=== PATIENT | female | born 1960 | race Caucasian/White ===

== ENCOUNTER 2022-05-11 13:39 | Outpatient (RCR) | payer BC, SELFPAY ==
--- NOTE | 2022-05-08 12:58 | ONC.NURNOTE ---
Patient is on the schedule for prolia, but last note has no mention of this. LM for patient to see who was the ordering provider for this. Will take patient off schedule for this at this time, as orders will need to be written and PA obtained.
== END 2022-11-07 23:59 | disposition home or self-care (01) ==
LOC: CCIC 13:39
PROVIDERS: PCP Family Medicine; Visit Provider Nurse Practitioner Family
DX: C50.912 Malignant neoplasm of unspecified site of left female breast (principal); Z17.0 Estrogen receptor positive status [ER+]; Z79.811 Long term (current) use of aromatase inhibitors
CPT/HCPCS: 99212; 99214

== ENCOUNTER 2022-09-12 08:57 | Outpatient (CLI) | payer BC, SELFPAY ==
--- NOTE | 2022-09-12 09:15 | MR_ITS ---
[address] [address] Phone:?[phone] Fax:?[phone] Referring Physician Information: Lalo Garibay M.D. [id number] [facility] [address] Phone:?[phone] Fax:?[phone] Patient:Dakota Rubio D.O.B:?1960 Sex:?Female Phone:? [facility] MRN:?[id number] Exam Date:?09/12/2022 ? EXAM: MRI OF THE LEFT KNEE CLINICAL INFORMATION: The patient is a 61-year-old with left knee pain. Evaluate for lateral meniscal tear. PRIOR SURGERY: None reported. COMPARISON STUDIES: There are no prior studies available for comparison. TECHNICAL INFORMATION: Imaging was performed on a high-field, 1.5 [place]uy MR scanner. Axial proton-density and fat-suppressed T2 imaging of the left knee was performed in addition to sagittal proton-density and fat-suppressed proton- density imaging. Coronal proton-density and coronal STIR imaging was also performed. FINDINGS: Articular/Extraarticular collections: Effusion: Mild. Popliteal cyst: Small to moderate, seen on sagittal series 6 images 9 and 10. Loose bodies: No well-defined intra-articular loose bodies are present. Subcutaneous and extraarticular soft tissues: Within normal limits. Osseous structures: No evidence for marrow edema or cortical injury. No evidence for fracture or stress injury. No evidence for destructive bony lesion. Ligamentous structures: ACL: Intact and normal in appearance. PCL: Intact and normal in appearance. MCL: Intact and normal in appearance. LCL: Intact and normal in appearance. Posterolateral corner: Intact and normal in appearance. Posteromedial corner: No posteromedial corner soft tissue injury. Semimembranosus and pes anserine tendons demonstrate no tendinopathy or associated bursitis. Extensor mechanism/Patellar retinacular structures: Patellar tendon: Intact, without tendinopathy. Quadriceps tendon: Chronic mild distal quadriceps tendinosis can be seen. There is no evidence for well-defined transverse tearing. Retinacula: The medial and lateral retinacula are intact. The medial patellofemoral ligament is intact. Medial compartment: Medial meniscus: Intrasubstance degeneration of the posterior horn of the medial meniscus can be seen. No definite evidence for well-defined tearing is identified. The middle and anterior portions of the medial meniscus appear intact. No parameniscal cyst formation is present. Medial femoral condyle: No chondromalacia, chondral defect, or osteochondral abnormality. Medial tibial plateau: No chondromalacia, chondral defect, or osteochondral abnormality. Lateral compartment: Lateral meniscus: There is a focal area of linear tearing involving the far posterior aspect of the lateral meniscus near the meniscotibial attachment on sagittal series 6 image 20, measuring approximately 5 mm in greatest dimension. No other well-defined tearing of the lateral meniscus can be seen. There is no evidence for parameniscal cyst formation. Lateral femoral condyle: No chondromalacia, chondral defect, or osteochondral abnormality. Lateral tibial plateau: Grade II chondromalacia can be seen along the posterior weightbearing surfaces of the lateral tibial plateau. No full-thickness chondral defects are present. Patellofemoral compartment: Patella: Broad-based, full-thickness chondral loss can be seen involving the patellar apex and lateral patellar facet on axial series 3 image 10, measuring 28 mm in mediolateral dimension and 22 mm in craniocaudal dimension. Trochlea: No chondromalacia, chondral defect, or osteochondral abnormality. Neurovascular: No definite neurovascular abnormalities are seen. CONCLUSION: 1. Broad-based, full-thickness chondral loss involving the patellar apex and lateral patellar facet. 2. Small, focal tear involving the far posterior aspect of the lateral meniscus near the meniscotibial attachment. 3. 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 4. The cruciate and collateral ligaments appear intact. 5. Mild knee joint effusion and [id number] popliteal cyst. [facility] Electronically signed on 09/12/2022 2:42:00 PM by Odell Martinez M.D.
== END 2022-09-12 08:58 | disposition home or self-care (01) ==
PROVIDERS: PCP Family Medicine; Visit Provider Orthopaedic Surgery Sports Medicine
DX: M25.562 Pain in left knee (principal); M23.252 Derangement of posterior horn of lateral meniscus due to old tear or injury, left knee; M94.262 Chondromalacia, left knee; M25.462 Effusion, left knee
CPT/HCPCS: 73721

== ENCOUNTER 2022-11-23 16:37 | Emergency (ER) | payer BC, SELFPAY ==
[2022-11-23] VITALS (8 sets, daily range): BP systolic 120–123; BP diastolic 69–97; PULSE 94–99; TEMP 36.2; O2SAT 96–99
--- NOTE | 2022-11-23 16:54 | ED_ITS ---
HPI - Dizziness General Chief Complaint: Diabetic Related Problem Stated Complaint: Low Blood sugar Vomiting Diarrhea Time Seen by Provider: 11/23/22 16:38 History of Present Illness HPI Narrative: Patient is a 61-year-old insulin-dependent diabetic who felt fine this morning but approximately but approximately 2-1/2 hours ago developed weakness dizziness and nausea. Patient's blood sugar was in the 40s. She taking her NovoLog insulin. She also takes Tresiba. Patient is been trying to eat to get her blood sugar up but has been unable to due to the refractory nausea and vomiting. She has had no fevers no chills no night sweats no chest pain no shortness of breath. Patient's blood sugar currently 61. No other related symptoms are noted. Patient has been in good health and has not been ill in any way leading up to today's events. Again patient has no other symptoms otherwise feels well. Her most pressing symptom is nausea and vomiting. She has had no diarrhea or abdominal pain. Related Data Home Medications Medication Instructions Recorded Confirmed anastrozole 1 mg tablet 1 mg PO QDAY 05/11/22 11/23/22 atorvastatin 40 mg tablet 40 mg PO QDAY 05/11/22 11/23/22 calcium carbonate 600 mg-vitamin cap PO TID 05/11/22 11/04/22 D3 10 mcg (400 unit) capsule cholecalciferol (vitamin D3) 10 10 mcg PO QDAY 05/11/22 11/23/22 mcg (400 unit) capsule hydrochlorothiazide 25 mg tablet 25 mg PO QDAY 05/11/22 11/23/22 insulin aspart U-100 100 unit/mL 30 unit subcut TID 05/11/22 11/23/22 (3 mL) subcutaneous pen (Novolog FlexPen U-100 Insulin aspart) insulin degludec 200 unit/mL (3 112 unit subcut QHS 05/11/22 11/23/22 mL) subcutaneous pen (Tresiba FlexTouch U-200 insulin) liraglutide 0.6 mg/0.1 mL (18 mg/3 1.8 mg subcut QHS 05/11/22 11/23/22 mL) subcutaneous pen injector (Victoza 3-Caden) lisinopril 40 mg tablet 40 mg PO QDAY 05/11/22 11/23/22 metformin 500 mg tablet,extended 1,000 mg PO BID 05/11/22 11/23/22 release 24 hr metoprolol tartrate 50 mg tablet 50 mg PO Q12H 05/11/22 11/23/22 pen needle, diabetic 32 gauge x #50 ea 05/11/22 11/04/22 (BD Ultra-Fine Arielle Pen Needle) vitamin B complex (B 1 tab PO QDAY 05/11/22 11/23/22 Complex-Vitamin B12 tablet) amlodipine 5 mg tablet 5 mg PO QDAY 09/05/22 11/23/22 empagliflozin 10 mg tablet 10 mg PO QDAY 09/19/22 11/23/22 (Jardiance) Allergies Allergy/AdvReac Type Severity Reaction Status Date / Time No Known Drug Allergies Allergy Verified 11/04/22 12:07 Review of Systems Status of ROS: Reports: 10 or more systems reviewed and unremarkable except as noted in History and below [facility] Medical History Diabetes type 2, controlled ?E11.9 - Type 2 diabetes mellitus without complications (ICD-10) HTN (hypertension) ?I10 - Essential (primary) hypertension (ICD-10) Sleep apnea ?G47.30 - Sleep apnea, unspecified (ICD-10) SVT (supraventricular tachycardia) ?I47.1 - Supraventricular tachycardia (ICD-10) Surgical History S/P lumpectomy, left breast (~08/28/17) ?Z98.890 - Other specified postprocedural states (ICD-10) Status post radiation therapy ?Z92.3 - Personal history of irradiation (ICD-10) Social History Narrative: daughter lives with her but smokes outside Smoking Status: Never smoker Do you use any of these nicotine containing products: None Second hand tobacco smoke exposure: Yes How often do you have a drink containing alcohol: never How often do you have six or more drinks on one occasion: Never AUDIT-C Alcohol total score: 0 Non-prescribed substance use: denies use Exam Narrative: Exam Narrative: EXAM GENERAL: Patient appears comfortable and well. EYES: No scleral icterus. THYROID: no thyroid nodules or thyromegaly. LYMPH: No supraclavicular or cervical lymphadenopathy. SKIN: Visible skin seen during exam normal or with benign process only. EXT: No dependent lower extremity pedal edema. HEART: Regular rate and rhythm with no murmurs, rubs, or gallops. LUNGS: Clear to auscultation bilaterally with no crackles or wheezes. ABD: Soft, non tender, non distended. PSYCH: Good eye contact, speech is not pressured. Const: Vital Signs, click to edit/add: Vital Signs - 24 hr 11/23/22 16:43 11/23/22 17:31 11/23/22 17:32 Temperature 97.2 F L Pulse Rate 96 96 Pulse Rate [Pulse Oximeter] 98 Blood Pressure 123/69 Blood Pressure [Ri ght Upper Arm] 120/97 H Pulse Oximetry 99 97 97 Oxygen Delivery Me thod Room Air 11/23/22 17:45 11/23/22 18:00 Temperature Pulse Rate 94 99 Pulse Rate [Pulse Oximeter] Blood Pressure Blood Pressure [Ri ght Upper Arm] Pulse Oximetry 98 97 Oxygen Delivery Me thod Course Course Hospital Course: Patient seen examined. She is currently drinking juice. Her blood sugars currently 61. IV started normal saline bolus given IV Zofran 4 mg given. CBC basic metabolic panel troponin EKG ordered. Reevaluation(s) Reevaluation #1: Patient blood sugar 173 after a very small amount of D5 normal saline given IV. Labs reviewed and unremarkable with the exception of hypoglycemia. Time: 18:48 Vital Signs Vital signs: Initial Vital Signs Temperature 97.2 F L 11/23/22 16:43 Temperature Source Temporal Artery Scan 11/23/22 16:43 Pulse Rate 98 11/23/22 16:43 Blood Pressure 120/97 H 11/23/22 16:43 Blood Pressure Mean 104 11/23/22 16:43 Pulse Oximetry 99 11/23/22 16:43 Oxygen Delivery Method Room Air 11/23/22 16:43 Vital Signs Temperature 97.2 F L 11/23/22 16:43 Pulse Rate 98 11/23/22 16:43 Blood Pressure 120/97 H 11/23/22 16:43 Pulse Oximetry 99 11/23/22 16:43 Oxygen Delivery Method Room Air 11/23/22 16:43 Temperature 97.2 F L 11/23/22 16:43 Pulse Rate 99 11/23/22 18:00 Blood Pressure 123/69 11/23/22 17:31 Pulse Oximetry 97 11/23/22 18:00 Oxygen Delivery Method Room Air 11/23/22 16:43 MDM - Dizziness MDM Narrative Medical decision making narrative: Patient presents mid afternoon after taking 30 units of NovoLog at lunch and then vomiting with hypoglycemia. Patient was unable to tolerate oral glucose replacement we did give a small amount of normal saline with dextrose 5% which helped her bring her sugars up to roughly 170. We now saline locked the dext jessica and normal saline and blood sugar has stayed stable. Patient had largely unremarkable laboratory workup with exception of hypoglycemia. Troponin is negative EKG shows normal sinus rhythm. Patient has a normal abdominal exam. She was offered admission or for further observation here in the emergency room but she would like to go home. I do think that is somewhat reasonable given her stable blood sugar. She does have Zofran at home that she will take p.r.n.. She will skip her evening dose of Lantus and continue her metformin and Victoza patient has a Nexmo blood glucose monitoring device and will monitor her blood sugar carefully. She will return to the emergency room for further evaluation of any problems develop. Differential Diagnosis Differential diagnosis: Likely adverse reaction to drug, orthostatic hypotension, cerebrovascular accident and transient cerebral ischemia Medical Records Attestation: I reviewed the patient's medical records. Lab Data Labs: Lab Results 11/23/22 11/23/22 Range/Units 16:50 17:14 WBC 23.42 H (4.50-11.00) K/uL RBC 5.63 H (4.00-5.20) m/uL Hgb 15.0 (12.0-16.0) gm/dL Hct 46.7 (33.0-51.0) % MCV 83 (80-100) fL MCH 27 (26-34) pg MCHC 32 (32-36) gm/dL RDW Coeff of Emilia 14.3 (11.5-15.5) % Plt Count 415 (140-440) K/uL Neut % (Auto) 83.9 H (42.0-72.0) % Lymph % (Auto) 5.4 L (20-44) % [place] % (Auto) 8.4 (0.0-11.0) % Eos % (Auto) 0.9 (0.0-7.0) % Baso % (Auto) 0.1 (0.0-3.0) % Neut # (Auto) 19.60 H (1.7-7.0) K/uL Lymph # (Auto) 1.30 (0.90-2.90) K/uL [place] # (Auto) 2.00 H (0.00-0.90) K/UL Eos # (Auto) 0.20 (0.00-0.50) K/uL Baso # (Auto) 0.00 (0.00-0.30) K/uL Sodium 141 (135-149) mmol/L Potassium 4.1 (3.6-5.1) mmol/L Chloride 104 (96-114) mmol/L Carbon Dioxide 28 (20-32) mmol/L BUN 32 H (7-30) mg/dL Creatinine 1.5 (0.5-1.5) mg/dL Estimated GFR 39 ml/min Glucose 75 (60-115) mg/dL Calcium 9.9 (8.4-10.6) mg/dL Troponin I < 0.01 L (0.01-0.04) ng/mL Influenza Type A Ag Negative (Negative) Influenza Type B Ag Negative (Negative) Discharge Plan Discharge Clinical Impression: Hypoglycemia Patient Disposition: Home, Self-Care Condition: Stable Instructions: Hypoglycemia in a Person with Diabetes (DC) Additional Instructions: Monitor your blood sugars carefully Medication adjustment as discussed. Follow-up with your doctor or the emergency room for further problems develop. Zofran from home supply as prescribed Advanced diet as tolerated Activity Level: No Restrictions Discharge Diet: Diabetic Prescriptions: No Action amlodipine 5 mg tablet 5 mg PO QDAY Jardiance 10 mg tablet 10 mg PO QDAY lisinopril 40 mg tablet 40 mg PO QDAY (DME) pen needle, diabetic [BD Ultra-Fine Arielle Pen Needle] 32 gauge x 5/32 needle See Rx Instructions .ROUTE .MEDSUPPLY Qty: 50 Rx Instructions: As directed insulin aspart U-100 [Novolog FlexPen U-100 Insulin] 100 unit/mL (3 mL) insulin pen 30 unit subcut TID Patient Comments: once/meal, 30u breakfast, 30u lunch, 38u dinner (+ sliding scale with each meal) metformin 500 mg tablet extended release 24 hr 1,000 mg PO BID insulin degludec [Tresiba FlexTouch U-200] 200 unit/mL (3 mL) insulin pen 112 unit subcut QHS hydrochlorothiazide 25 mg tablet 25 mg PO QDAY atorvastatin 40 mg tablet 40 mg PO QDAY anastrozole 1 mg tablet 1 mg PO QDAY metoprolol tartrate 50 mg tablet 50 mg PO Q12H Victoza 3-Caden 0.6 mg/0.1 mL (18 mg/3 mL) pen injector 1.8 mg subcut QHS vitamin B complex [B Complex-Vitamin B12] Tablet 1 tab PO QDAY calcium carbonate-vitamin D3 600 mg-10 mcg (400 unit) capsule PO TID cholecalciferol (vitamin D3) 10 mcg (400 unit) capsule 10 mcg PO QDAY Follow Up/Referrals: Ibis Chilel MD [Primary Care Provider] - Stand Alone Forms: [facility] Info Instructions
[2022-11-23] MEDS: 0.9 % SODIUM CHLORIDE 1000 ml 1,000 ML IV (16:58)
[2022-11-23] MEDS: ONDANSETRON 2 MG/ML inj 4 MG IVP (16:58)
[2022-11-23 17:01] LABS: Eosinophils Percent Auto 0.9 % (0.0-7.0); Hematocrit 46.7 % (33.0-51.0); Lymphocytes Percent Auto 5.4 % (20-44); Mean Corpuscular HGB Conc 32 gm/dL (32-36); Mean Corpuscular Hemoglobin 27 pg (26-34); Mean Corpuscular Volume 83 fL (80-100); Monocytes Percent Auto 8.4 % (0.0-11.0); Neutrophils Percent Auto 83.9 % (42.0-72.0); Platelet Count* 415 K/uL (140-440); RDW Coefficient of Variation % 14.3 % (11.5-15.5); Red Blood Count 5.63 m/uL (4.00-5.20); White Blood Count* 23.42 K/uL (4.50-11.00)
[2022-11-23 17:02] LABS: Basophils Percent Auto 0.1 % (0.0-3.0); Immature Granulocytes Pct Auto 1.3 %
[2022-11-23 17:03] LABS: Slide Review Reflex No
[2022-11-23 17:13] LABS: Chloride* 104 mmol/L (96-114); Potassium* 4.1 mmol/L (3.6-5.1); Sodium* 141 mmol/L (135-149)
[2022-11-23 17:16] LABS: Blood Urea Nitrogen* 32 mg/dL (7-30); Carbon Dioxide* 28 mmol/L (20-32); Creatinine* 1.5 mg/dL (0.5-1.5); Estimated Glomerular Filt Rate 39 ml/min; Glucose* 75 mg/dL (60-115)
[2022-11-23 17:17] LABS: Calcium* 9.9 mg/dL (8.4-10.6)
--- NOTE | 2022-11-23 17:31 | ED.NURSE ---
Pt has BgL monitoring device bedside, consistent with labs obtained BgL. Pt slowly working on drinking apple juice and eating crackers. BgL 70-73 throughout 30 mins of monitoring. Got pt another apple juice container. Fluids currently running. Pt reports COVID + at the end of October, Rapid Flu testing completed.
[2022-11-23 17:32] LABS: Troponin I* < 0.01 ng/mL (0.01-0.04)
[2022-11-23 17:40] LABS: Influenza Type A Negative (Negative); Influenza Type B Negative (Negative)
[2022-11-23] MEDS: 5 % DEXTROSE/0.9% SOD CHLORIDE 1,000 ML 125 ML IV (17:57)
== END 2022-11-23 18:59 | disposition home or self-care (01) ==
PROVIDERS: Emergency Provider Internal Medicine; PCP Family Medicine
DX: E11.649 Type 2 diabetes mellitus with hypoglycemia without coma (principal)
CPT/HCPCS: 36415; 80048; 82962; 84484; 85025; 87631; 87804; 93005; 96374; 99283; 99284; J2405; J7030; J7042

== ENCOUNTER 2023-02-08 13:43 | Outpatient (RCR) | payer BC, SELFPAY | END 2023-08-07 23:59 | disposition home or self-care (01) | LOC: CCIC 13:43 | PROVIDERS: PCP Family Medicine; Visit Provider Internal Medicine Hematology & Oncology | DX: C50.912 Malignant neoplasm of unspecified site of left female breast (principal); Z17.0 Estrogen receptor positive status [ER+]; R23.2 Flushing; T45.1X5A Adverse effect of antineoplastic and immunosuppressive drugs, initial encounter; M17.12 Unilateral primary osteoarthritis, left knee | CPT/HCPCS: 99212; 99214 ==

== ENCOUNTER 2023-03-11 22:59 | Emergency (ER) | payer BC, SELFPAY ==
[2023-03-11 23:20] VITALS: BP 108/50; PULSE 93; RESP 16; TEMP 36.1; O2SAT 98
--- NOTE | 2023-03-11 23:38 | ED_ITS ---
HPI - General Adult General Time Seen by Provider: 23:38 Date Seen: 03/11/23 Chief complaint: Diabetic Related Problem Stated complaint: low blood sugar, was at 70 Time Seen by Provider: 03/11/23 23:05 Source: patient Mode of arrival: ambulatory Limitations: no limitations History of Present Illness HPI narrative: Patient is a 62-year-old female with a history of diabetes type 2 presenting to the emergency department for fatigue and low blood sugar. Patient states she woke up this morning feeling very nauseated. She tried to eat multiple times and she says over time she had vomited up. She has try to take Zofran today but she has not noticed any improvement with that. She took her normal insulin this afternoon when her blood sugars she states was 150. She the nose her blood sugar monitor said her blood sugar was in the 40s. She came to the emergency department. Has had symptoms like this in the past. She states she feels tired but denies chest pain, shortness of breath, abdominal pain, headache, numbness. Does states she had episode of loose stools today. She also states she is having some white dots in her vision but states it gets like that whenever her blood sugar is low and is not overtly abnormal for her. Related Data Home Medications Medication Instructions Recorded Confirmed atorvastatin 40 mg tablet 40 mg PO QDAY 05/11/22 02/08/23 calcium carbonate 600 mg-vitamin cap PO TID 05/11/22 02/08/23 D3 10 mcg (400 unit) capsule cholecalciferol (vitamin D3) 10 10 mcg PO QDAY 05/11/22 02/08/23 mcg (400 unit) capsule hydrochlorothiazide 25 mg tablet 25 mg PO QDAY 05/11/22 02/08/23 insulin aspart U-100 100 unit/mL 30 unit subcut TID 05/11/22 02/08/23 (3 mL) subcutaneous pen (Novolog FlexPen U-100 Insulin aspart) insulin degludec 200 unit/mL (3 112 unit subcut QHS 05/11/22 02/08/23 mL) subcutaneous pen (Tresiba FlexTouch U-200 insulin) liraglutide 0.6 mg/0.1 mL (18 mg/3 1.8 mg subcut QHS 05/11/22 02/08/23 mL) subcutaneous pen injector (Victoza 3-Caden) lisinopril 40 mg tablet 40 mg PO QDAY 05/11/22 02/08/23 metformin 500 mg tablet,extended 1,000 mg PO BID 05/11/22 02/08/23 release 24 hr metoprolol tartrate 50 mg tablet 50 mg PO Q12H 05/11/22 02/08/23 pen needle, diabetic 32 gauge x #50 ea 05/11/22 11/04/22 (BD Ultra-Fine Arielle Pen Needle) vitamin B complex (B 1 tab PO QDAY 05/11/22 02/08/23 Complex-Vitamin B12 tablet) amlodipine 5 mg tablet 5 mg PO QDAY 09/05/22 02/08/23 empagliflozin 10 mg tablet 10 mg PO QDAY 09/19/22 02/08/23 (Jardiance) gabapentin 300 mg capsule 300 mg PO QDAY 02/08/23 02/08/23 Allergies Allergy/AdvReac Type Severity Reaction Status Date / Time No Known Drug Allergies Allergy Verified 11/04/22 12:07 Review of Systems Status of ROS: Reports: 10 or more systems reviewed and unremarkable except as noted in History and below [facility] Medical History (Updated 02/08/23 @ 14:52 by Archana Farrar PA-C) Diabetes type 2, controlled ?E11.9 - Type 2 diabetes mellitus without complications (ICD-10) SVT (supraventricular tachycardia) ?I47.1 - Supraventricular tachycardia (ICD-10) HTN (hypertension) ?I10 - Essential (primary) hypertension (ICD-10) Sleep apnea ?G47.30 - Sleep apnea, unspecified (ICD-10) Surgical History Status post radiation therapy ?Z92.3 - Personal history of irradiation (ICD-10) S/P lumpectomy, left breast (~08/28/17) ?Z98.890 - Other specified postprocedural states (ICD-10) Social History Narrative: daughter lives with her but smokes outside Smoking Status: Never smoker Do you use any of these nicotine containing products: None Second hand tobacco smoke exposure: Yes How often do you have a drink containing alcohol: never How often do you have six or more drinks on one occasion: Never AUDIT-C Alcohol total score: 0 Non-prescribed substance use: denies use Exam Narrative: Exam Narrative: Const: Well-nourished, Well-developed, in mild distress Eyes: PERRL, no conjunctival injection, and symmetrical lids ENMT: Atraumatic external nose and ears. Moist mucous membranes. Neck: Symmetric, trachea midline, No thyromegaly. CVS: RRR, No murmurs or gallops. Peripheral pulses 2+ and equal in all extremities RESP: Unlabored respiratory effort. Clear to auscultation bilaterally. GI: Nontender/Nondistended, No rebound or guarding. MSK:Extremities w/o deformity, Normal Active ROM Skin: Warm, Dry. No rashes or lesions. Neuro: Normal Muscle tone, No focal neurological deficits. Psych: Awake, Alert, & Oriented x3. Appropriate mood and affect. Const: Vital Signs, click to edit/add: Vital Signs - 24 hr 03/11/23 23:20 Temperature 96.9 F L Pulse Rate [Left P ulse Oximeter] 93 Respiratory Rate 16 Blood Pressure [Ri ght Upper Arm] 108/50 L Pulse Oximetry 98 Oxygen Delivery Me thod Room Air Course Vital Signs Vital signs: Initial Vital Signs Temperature 96.9 F L 03/11/23 23:20 Temperature Source Temporal Artery Scan 03/11/23 23:20 Pulse Rate 93 03/11/23 23:20 Respiratory Rate 16 03/11/23 23:20 Blood Pressure 108/50 L 03/11/23 23:20 Blood Pressure Mean 69 L 03/11/23 23:20 Blood Pressure Position Semi-Fowlers 03/11/23 23:20 Pulse Oximetry 98 03/11/23 23:20 Oxygen Delivery Method Room Air 03/11/23 23:20 Vital Signs Temperature 96.9 F L 03/11/23 23:20 Pulse Rate 93 03/11/23 23:20 Respiratory Rate 16 03/11/23 23:20 Blood Pressure 108/50 L 03/11/23 23:20 Pulse Oximetry 98 03/11/23 23:20 Oxygen Delivery Method Room Air 03/11/23 23:20 Temperature 96.9 F L 03/11/23 23:20 Pulse Rate 93 03/11/23 23:20 Respiratory Rate 16 03/11/23 23:20 Blood Pressure 108/50 L 07/23/23 23:20 Pulse Oximetry 98 03/11/23 23:20 Oxygen Delivery Method Room Air 03/11/23 23:20 Medical Decision Making MDM Narrative Medical decision making narrative: Patient is 60-year-old female presented emergency department for nausea, hyperglycemia, fatigue. She woke up this morning nauseated and has been the eating anything. She did take her regular dose of insulin this afternoon. States this has happened to her in the past. With his symptoms are worse cbc, CMP, troponin, EKG. We will give the patient regular in and see if she can successfully p.o. challenge. Patient's lab work returns showing no concerning abnormalities. We will give her a L fluid of 5% dextrose. Blood sugar is at 79. Creatinine is 1.7. Creatinine appears to be stable. We will p.o. challenge here after Reglan. Patient is still in part me and my shift and was signed out to Dr. Martinez. See his notes for final disposition Lab Data Labs: Lab Results 03/11/23 03/11/23 Range/Units 00:11 23:35 WBC 11.66 H (4.50-11.00) K/uL RBC 5.67 H (4.00-5.20) m/uL Hgb 14.9 (12.0-16.0) gm/dL Hct 47.7 (33.0-51.0) % MCV 84 (80-100) fL MCH 26 (26-34) pg MCHC 31 L (32-36) gm/dL RDW Coeff of Emilia 14.4 (11.5-15.5) % Plt Count 357 (140-440) K/uL Neut % (Auto) 85.4 H (42.0-72.0) % Lymph % (Auto) 5.3 L (20-44) % [place] % (Auto) 6.9 (0.0-11.0) % Eos % (Auto) 1.6 (0.0-7.0) % Baso % (Auto) 0.2 (0.0-3.0) % Neut # (Auto) 10.00 H (1.7-7.0) K/uL Lymph # (Auto) 0.60 L (0.90-2.90) K/uL [place] # (Auto) 0.80 (0.00-0.90) K/UL Eos # (Auto) 0.20 (0.00-0.50) K/uL Baso # (Auto) 0.00 (0.00-0.30) K/uL Abs Immat Gran (auto) 0.10 (0.00-0.30) K/uL Imm/Tot Granulo (auto) 0.6 % Sodium 142 (135-149) mmol/L Potassium 3.9 (3.6-5.1) mmol/L Chloride 104 (96-114) mmol/L Carbon Dioxide 22 (20-32) mmol/L BUN 48 H (7-30) mg/dL Creatinine 1.7 H (0.5-1.5) mg/dL Estimated GFR 34 ml/min Glucose 79 (60-115) mg/dL Calcium 8.7 (8.4-10.6) mg/dL Total Bilirubin 1.0 (0.1-1.5) mg/dL AST 27 (12-35) U/L ALT 26 (4-35) U/L Alkaline Phosphatase 75 (40-150) U/L Total Protein 8.4 H (6.0-8.3) g/dL Albumin 4.5 (3.3-5.0) g/dL Lipase 171 (23-300) U/L POC Troponin I 0.00 L (0.01-0.04) ng/ml Discharge Plan Discharge Prescriptions: No Action amlodipine 5 mg tablet 5 mg PO QDAY Jardiance 10 mg tablet 10 mg PO QDAY gabapentin 300 mg capsule 300 mg PO QDAY lisinopril 40 mg tablet 40 mg PO QDAY (DME) pen needle, diabetic [BD Ultra-Fine Arielle Pen Needle] 32 gauge x 5/32 needle See Rx Instructions .ROUTE .MEDSUPPLY Qty: 50 Rx Instructions: As directed insulin aspart U-100 [Novolog FlexPen U-100 Insulin] 100 unit/mL (3 mL) insulin pen 30 unit subcut TID Patient Comments: once/meal, 30u breakfast, 30u lunch, 38u dinner (+ sliding scale with each meal) metformin 500 mg tablet extended release 24 hr 1,000 mg PO BID insulin degludec [Tresiba FlexTouch U-200] 200 unit/mL (3 mL) insulin pen 112 unit subcut QHS hydrochlorothiazide 25 mg tablet 25 mg PO QDAY atorvastatin 40 mg tablet 40 mg PO QDAY metoprolol tartrate 50 mg tablet 50 mg PO Q12H Victoza 3-Caden 0.6 mg/0.1 mL (18 mg/3 mL) pen injector 1.8 mg subcut QHS vitamin B complex [B Complex-Vitamin B12] Tablet 1 tab PO QDAY calcium carbonate-vitamin D3 600 mg-10 mcg (400 unit) capsule PO TID cholecalciferol (vitamin D3) 10 mcg (400 unit) capsule 10 mcg PO QDAY Follow Up/Referrals: Ibis Chilel MD [Primary Care Provider] -
[2023-03-11 23:52] LABS: Basophils Percent Auto 0.2 % (0.0-3.0); Eosinophils Percent Auto 1.6 % (0.0-7.0); Hematocrit 47.7 % (33.0-51.0); Hemoglobin* 14.9 gm/dL (12.0-16.0); Immature Granulocytes Pct Auto 0.6 %; Lymphocytes Percent Auto 5.3 % (20-44); Mean Corpuscular HGB Conc 31 gm/dL (32-36); Mean Corpuscular Hemoglobin 26 pg (26-34); Mean Corpuscular Volume 84 fL (80-100); Monocytes Percent Auto 6.9 % (0.0-11.0); Neutrophils Percent Auto 85.4 % (42.0-72.0); Platelet Count* 357 K/uL (140-440); RDW Coefficient of Variation % 14.4 % (11.5-15.5); Red Blood Count 5.67 m/uL (4.00-5.20); White Blood Count* 11.66 K/uL (4.50-11.00)
[2023-03-11 23:54] LABS: Albumin* 4.5 g/dL (3.3-5.0); Chloride* 104 mmol/L (96-114); Potassium* 3.9 mmol/L (3.6-5.1); Slide Review Reflex No; Sodium* 142 mmol/L (135-149)
[2023-03-11 23:57] LABS: Alanine Aminotransferase* 26 U/L (4-35); Alkaline Phosphatase* 75 U/L (40-150); Aspartate Amino Transferase* 27 U/L (12-35); Blood Urea Nitrogen* 48 mg/dL (7-30); Calcium* 8.7 mg/dL (8.4-10.6); Carbon Dioxide* 22 mmol/L (20-32); Creatinine* 1.7 mg/dL (0.5-1.5); Estimated Glomerular Filt Rate 34 ml/min; Glucose* 79 mg/dL (60-115); Lipase* 171 U/L (23-300); Total Protein* 8.4 g/dL (6.0-8.3)
[2023-03-12] MEDS: METOCLOPRAMIDE HCL 5 MG/ML INJ 10 MG IVP (00:20)
[2023-03-12] MEDS: 5 % DEXTROSE/0.9% SOD CHLORIDE 1,000 ML 1000 ML IV (00:30)
[2023-03-12 01:16] LABS: Appearance Urine Clear (Clear); Bilirubin Urine 1+ (Negative); Blood Urine Trace-intact (Negative); Color Urine Yellow (Yellow); Glucose Urine 1+ (Negative); Ketones Urine 1+ (Negative); Leukocyte Esterase Urine Negative (Negative); Nitrite Urine Negative (Negative); Protein Urine 2+ (Negative); Specific Gravity Urine >= 1.030 (1.000-1.030); Urobilinogen Urine 0.2 (0.2-1.0)
[2023-03-12 01:19] LABS: Bacteria Urine Few; Mucus Urine Few; RBC Urine 0-2 (0-2); Squamous Epithelial Cell Urine Few (None-Few); WBC Urine 0-2 (0-5)
--- NOTE | 2023-03-12 02:10 | ED.NURSE ---
Timed BGL 307. notified.
== END 2023-03-12 02:27 | disposition home or self-care (01) ==
PROVIDERS: Emergency Provider Student in an Organized Health Care Education/Training Program; PCP Family Medicine
DX: E11.649 Type 2 diabetes mellitus with hypoglycemia without coma (principal)
CPT/HCPCS: 36415; 80053; 81001; 82962; 83690; 84484; 85025; 87086; 96374; 99283; 99284; J2765; J7042

== ENCOUNTER 2023-03-21 08:46 | Outpatient (CLI) | payer BC, SELFPAY ==
--- NOTE | 2023-03-21 08:45 | CRLHL7_ITS ---
For Patients: As a result of the Century Cures Act, medical imaging exams and procedure reports are released immediately into your electronic medical record. You may view this report before your referring provider. If you have questions, please contact your health care provider. INDICATION: POST MENOPAUSAL BLEEDING COMPARISON: Pelvic MRI 11/19/2009 TECHNIQUE: 2D ventura scale and color Doppler images were acquired of the pelvis using a transabdominal and transvaginal approach. FINDINGS: Calcified posterior intramural fibroid is present measuring 6.1 x 4.3 cm. This was previously visualized in 2009 and appears similar. Uterus measures 9.9 cm in length by 7.0 cm in AP diameter by 7.9 cm in transverse dimension. The endometrial lining measures 4 mm in composite thickness. The ovaries are not visualized. There are no suspicious fluid collections within the cul-de-sac. IMPRESSION: Calcified posterior uterine fibroid again noted measuring 6.1 x 4.3 cm. Endometrial thickness is 4 millimeters. No endometrial fluid. Dictated by Duane Velze MD @ 03/21/2023 9:24:42 AM (Electronically Signed)
== END 2023-03-21 08:47 | disposition home or self-care (01) ==
LOC: US 08:46
PROVIDERS: PCP Family Medicine; Visit Provider Obstetrics & Gynecology
DX: N95.0 Postmenopausal bleeding (principal); D25.9 Leiomyoma of uterus, unspecified; R93.89 Abnormal findings on diagnostic imaging of other specified body structures
CPT/HCPCS: 76830; 76856

== ENCOUNTER 2023-06-19 06:03 | Day surgery (SDC) | payer BC, SELFPAY ==
[2023-06-19 06:16] VITALS: BMI 33.2
[2023-06-19 06:20] VITALS: BP 145/71; PULSE 77; RESP 16; TEMP 36.9; O2SAT 98
[2023-06-19] MEDS: LACTATED RINGERS 1000 ML 1,000 ML 100 ML IV (06:25)
[2023-06-19] MEDS: SODIUM CHLORIDE 0.9 % (FLUSH) 10 ML SYRINGE IVF (06:25)
[2023-06-19] MEDS: LIDOCAINE 1% MDV 20 ML INJECTION (08:04)
[2023-06-19] MEDS: BUPIVACAINE 0.25% 30 ML INJECTION (08:04)
--- NOTE | 2023-06-19 08:19 | P.GYNPRC_ITS ---
Procedure Note Date of procedure: 06/19/23 Pre-op diagnosis: Postmenopausal bleeding, history of focal complex endometrial hyperplasia Post-op diagnosis: same Procedure: Hysteroscopy D&C Polypectomy Anesthesia: MAC and local (Paracervical block) Complications: None Surgeon: Anat Ley MD Estimated blood loss (mL): 5 Pathology: specimen obtained, sent to pathology Condition: stable Disposition: same day Findings: Small polyp near the left tubal ostia. Atrophic-appearing endometrium. Area of calcification on the posterior aspect of the endometrium near the internal cervical os. Procedure Description: PREOPERATIVE DIAGNOSIS: 1. Postmenopausal bleeding. 2. Benign endometrial biopsy. 3. History focal complex endometrial hyperplasia without atypia in a polyp fragment. POSTOPERATIVE DIAGNOSIS: 1. Postmenopausal bleeding. 2. Benign endometrial biopsy. 3. History focal complex endometrial hyperplasia without atypia in a polyp fragment. NAME OF PROCEDURE: 1. Hysteroscopy. 2. D and C 3. Polypectomy. SURGEON: Av. ANESTHESIA: Monitored anesthesia care and paracervical block. COMPLICATIONS: None. ESTIMATED BLOOD LOSS: 5 mL. FLUID DEFICIT: 180 mL recorded, though a large amount of fluid was unrecoverable on the floor and on the surgeon, so this is an over-estimate. FINDINGS: Anteverted uterus. Small polyp near the left tubal ostia. Atrophic- appearing endometrium with a slight area of endometrial thickening posteriorly. Area of calcification on the posterior aspect of the endometrium near the internal cervical os.. PATHOLOGY SPECIMENS: 1. Endometrial curettings and endometrial polyps sent as a single specimen. PROCEDURE: After obtaining informed consent, the patient was taken to the operating room where she received monitored anesthesia care. She was prepared and draped in the normal sterile fashion, in the dorsal lithotomy position. An open-sided bivalve speculum was introduced into the vagina and the cervix visualized. The anterior lip of the cervix was grasped with a single-tooth tenaculum for traction. A paracervical block was then administered using a total of 20 mL of a 50/50 mixture of 0.25% Marcaine and 1% lidocaine plain. The uterus was gently sounded. Sound length was 7 cm. The cervix was gently dilated to a #6 Hegar dilator. A hysteroscope was then advanced under direct visualization through the cervix into the uterine cavity. Sterile normal saline was used as distending medium. The uterine cavity was carefully inspected with the findings noted above. Pictures were taken for documentation purposes. The TruClear morcellator was inserted through the operating channel in the hysteroscope. The morcellator was used to remove the polyp and the thicker endometrial tissue. The hysteroscope was then removed. The endometrial lining was then sharply curetted and very little additional tissue recovered. The tenaculum was removed. There was little bleeding from the tenaculum site, which was controlled with direct pressure sponge stick. All instruments were then removed. The patient tolerated the procedure well. Sponge, lap, needle, and instrument counts reported as correct x2. A postoperative debrief was done which confirmed the procedure, EBL, and pathology specimen. The patient was taken to the recovery room awake in a stable condition.
[2023-06-19 08:25] VITALS: BP 102/59; PULSE 79; RESP 18; TEMP 36.6; O2SAT 95
--- NOTE | 2023-06-19 08:26 | W.ANESCHARGE ---
Anesthesia Charges Start Date/Time Anesthesia Start Date: 06/19/23 Anesthesia Start Time: 07:43 Stop Date/Time Anesthesia Stop Date: 06/19/23 Anesthesia Stop Time: 08:25
[2023-06-19 08:30] VITALS: BP 101/62; PULSE 71; RESP 16; O2SAT 97
[2023-06-19 08:44] VITALS: BP 110/66; PULSE 67; RESP 16; O2SAT 96
[2023-06-19 09:00] VITALS: BP 122/75; PULSE 69; RESP 16; O2SAT 98
--- NOTE | 2023-06-19 11:25 | W.ANESCHARGE ---
Anesthesia Charges Start Date/Time Anesthesia Start Date: 06/19/23 Anesthesia Start Time: 07:43 Stop Date/Time Anesthesia Stop Date: 06/19/23 Anesthesia Stop Time: 08:25
== END 2023-06-19 09:30 | disposition home or self-care (01) ==
PROVIDERS: PCP Family Medicine; Visit Provider Obstetrics & Gynecology
PROC: 0UDB8ZZ Extraction of Endometrium, Via Natural or Artificial Opening Endoscopic (ICD-10-PCS; CPT 58558; principal; 2023-06-19 07:15)
DX: N95.0 Postmenopausal bleeding (principal); N84.0 Polyp of corpus uteri
CPT/HCPCS: 58558; 00952; 82962; 88305; J0665; J1100; J1885; J2250; J2405; J2704; J3010; J7120

== ENCOUNTER 2023-09-19 09:20 | Inpatient (IN) | payer BC, SELFPAY ==
[2023-09-19] VITALS (21 sets, daily range): BP systolic 107–149; BP diastolic 57–77; PULSE 60–109; RESP 12–22; TEMP 36.2–36.7; O2SAT 91–99; BMI 33.1
[2023-09-19] MEDS: LACTATED RINGERS 1000 ML 1,000 ML 100 ML IV ×3 (09:20→16:29)
--- NOTE | 2023-09-19 09:38 | W.PM.GYNPROC ---
Procedure Note Date of procedure: 09/19/23 Pre-op diagnosis: Complex endometrial hyperplasia without atypia, Uterine myoma (6cm) Post-op diagnosis: same Procedure: Total abdominal hysterectomy. Bilateral salpingo-oophorectomy. Anesthesia: GETA and other (TAP block) Complications: None. Surgeon: Anat Ley MD Senior Game Developer: Perlita Schaffer Estimated blood loss (mL): 100 Urine Output (mL): 100 Pathology: specimen obtained, sent to pathology (Uterus with cervix, bilateral fallopian tubes and ovaries) Condition: stable Disposition: PACU Findings: Deep pelvis. Enlarged, irregular uterus with calcified firm posterior uterine fibroid. Normal fallopian tubes and ovaries. Central adiposity. Sigmoid colon tethered to the left pelvic sidewall. Procedure Description: After obtaining informed consent, the patient was taken to the operating room where general anesthesia was obtained without difficulty. She was prepared and draped in the normal sterile fashion in the low dorsal lithotomy position with legs supported in Yellofin stirrups. A Tavares catheter was inserted sterilely into the bladder. A Pfannenstiel skin incision was made with a scalpel. This incision was carried down to the underlying layer of fascia sharply. The fascia was incised in the midline and the incision extended laterally. The superior and inferior aspects of the fascial incision were grasped with Gavin clamps and the underlying rectus muscles dissected off sharply. The rectus muscles were in the midline. The underlying peritoneum was identified and entered bluntly. The peritoneal incision was extended superiorly and inferiorly with good visualization of the bladder. The patient was placed in some mild Trendelenburg positioning. The bowels were packed cephalad using 2 large moistened laparotomy packs. The Joselo O retractor was placed in the incision. This provided adequate visualization of the pelvis, limited by patient body habitus and omental and sigmoid epiploica adipose. The pelvis was inspected with the findings noted above. Schulter clamps were placed at the cornua bilaterally for traction. Ureters could not be definitively identified along their courses within the pelvic sidewall, nor were the visualized in the medial leaf of the broad ligament once the broad ligaments were opened on both sides. The left round ligament was clamped with 2 Gavin clamps, transected, and suture ligated with 0 Vicryl. The anterior leaf of the broad ligament was opened from the left side to the midline. The bladder was pushed caudally with a sponge stick. The left infundibulopelvic ligament was isolated, doubly clamped with 2 Alice clamps, transected, and doubly suture ligated with 0 Vicryl. Hemostasis was visualized. The left uterine vessels were skeletonized and then clamped across with Alice clamps, transected, and suture ligated. Excellent hemostasis was obtained. The right round ligament was doubly clamped with Gavin clamps, transected, and suture ligated with 0 Vicryl. The anterior leaf of the broad ligament was opened to the midline from the right side. The bladder flap was pushed distally off of the lower uterine segment and cervix. The right infundibulopelvic ligament was isolated, doubly clamped with 2 Alice clamps, transected, and doubly suture ligated with 0 Vicryl. Hemostasis was visualized. The uterine vessels were skeletonized on the right side. The vessels were clamped across with a Alice and a straight clamp, transected, and suture ligated. Excellent hemostasis was obtained. The remaining cardinal and uterosacral ligament attachments on both sides were clamped with straight Alice clamps adjacent to the lower uterine segment and cervix, transected and suture ligated with 0 Vicryl. Excellent hemostasis was obtained. Of note, an additional neurosurgical physician assistant was needed to help with retraction of the bladder and adipose tissues throughout the procedure. Once an adequate dissection had been made and the cervix was palpable, two Alice clamps were placed across the vaginal cuff angles. The uterus with attached cervix was then transected from the vaginal tissues and passed off the field. The vaginal cuff angles were fixed with Alice stitches of 0 Vicryl. The intervening vaginal cuff was closed with [id number] sutures of 0 Vicryl. The abdomen and pelvis were then copiously irrigated. Hemostasis was visualized. Becki was placed over raw tissue edges for additional hemostasis. All laparotomy sponges and instruments were then removed. The subfascial tissues were carefully inspected and hemostasis assured. The fascia was reapproximated in a running fashion with a looped 0 Maxon suture. The subcutaneous tissues were copiously irrigated and hemostasis assured. The subcutaneous adipose layer was reapproximated with interrupted sutures of 3-0 plain gut. The skin was closed in a subcuticular fashion with 4-0 Vicryl. A silver Mepilex dressing was applied. The patient tolerated the procedure well. Sponge, lap, needle, instrument counts were reported as correct x2. The patient was taken to recovery room awake and in stable condition. She received 2 g of IV Ancef preoperatively. The uterus was weighed at the conclusion of the procedure, weight was 194 g. This case needs a 22 modifier for difficulty encountered due to patient's body habitus.
[2023-09-19 10:06] LABS: Hemoglobin* 13.3 gm/dL (12.0-16.0)
[2023-09-19 10:27] LABS: Creatinine* 0.9 mg/dL (0.5-1.5); Est. Creatinine Clearance* 54.61; Estimated Glomerular Filt Rate 72 ml/min
--- NOTE | 2023-09-19 10:37 | W.ANESCHARGE ---
Anesthesia Charges Start Date/Time Anesthesia Start Date: 09/19/23 Anesthesia Start Time: 10:41 Stop Date/Time Anesthesia Stop Date: 09/19/23 Anesthesia Stop Time: 13:59
[2023-09-19] MEDS: CEFAZOLIN 2 GM INJ IVP (11:12)
--- NOTE | 2023-09-19 14:03 | W.ANESCHARGE ---
Anesthesia Charges Start Date/Time Anesthesia Start Date: 09/19/23 Anesthesia Start Time: 10:41 Stop Date/Time Anesthesia Stop Date: 09/19/23 Anesthesia Stop Time: 13:59
[2023-09-19] MEDS: HYDROmorphone 0.5 mg/0.5 ml inj IVP (15:38)
[2023-09-19] MEDS: INSULIN ASPART 100 UNIT/ML SUBCUT ×2 (18:02→20:52)
[2023-09-19] MEDS: INSULIN ASPART 100 UNIT/ML 20 UNIT SUBCUT (18:02)
[2023-09-19] MEDS: KETOROLAC 15 MG/ML inj IVP (19:29)
[2023-09-19] MEDS: METOPROLOL TARTRATE 50 MG TABLET PO (20:49)
--- NOTE | 2023-09-19 21:58 | PM.IMCN1 ---
Date of Consult Patient: Diana Patient Consult date: 09/19/23 Requesting Physician: [facility] Primary Care Provider: Ibis Chilel MD Consult Narrative Reason for consult: Assist with postoperative management of diabetes mellitus type 2 Narrative: Rocío Rubio is a 62 year old woman underwent an elective total abdominal hysterectomy and bilateral salpingo oophorectomy today in relation to having complex endometrial hyperplasia without atypia as well as a uterine myoma measuring 6 cm. Reportedly surgery was successful and without any apparent complications. Patient surgeon, Dr. Ley, request support in managing the patient's blood sugars postoperatively. Patient just now starting to consume ice chips. Patient had not started drinking or eating. Has not had any stool or flatus. Denies nausea or vomiting. Review of Systems Status of ROS: Reports: 10 or more systems reviewed and unremarkable except as noted in History and below Narrative: Her last hemoglobin A1c was 6.9. On Jardiance, Tresiba 100 units every evening, Victoza 1.8 mg, metformin a 1000 mg twice daily, NovoLog insulin . [facility] Medical History (Updated 09/19/23 @ 22:05 by Josue Delgado MD) Restless leg syndrome ?G25.81 - Restless legs syndrome (ICD-10) Microalbuminuria ?R80.9 - Proteinuria, unspecified (ICD-10) Adenomatous colon polyp ?D12.6 - Benign neoplasm of colon, unspecified (ICD-10) Psoriasis ?L40.9 - Psoriasis, unspecified (ICD-10) Allergic rhinitis ?J30.9 - Allergic rhinitis, unspecified (ICD-10) Hyperlipidemia ?E78.5 - Hyperlipidemia, unspecified (ICD-10) Diabetic polyneuropathy ?E11.42 - Type 2 diabetes mellitus with diabetic polyneuropathy (ICD-10) Hepatitis B immune ?Z78.9 - Other specified health status (ICD-10) Uterine fibroid ?D25.9 - Leiomyoma of uterus, unspecified (ICD-10) Obstructive sleep apnea ?G47.33 - Obstructive sleep apnea (adult) (pediatric) (ICD-10) Postmenopausal bleeding ?N95.0 - Postmenopausal bleeding (ICD-10) 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) ?C50.912 - Malignant neoplasm of unspecified site of left female breast (ICD-10) Stage 3a chronic kidney disease (CKD) ?N18.31 - Chronic kidney disease, stage 3a (ICD-10) Lobular carcinoma of breast ?C50.919 - Malignant neoplasm of unspecified site of unspecified female breast (ICD-10) Endometrial hyperplasia without atypia, complex (01/17/22) ?N85.01 - Benign endometrial hyperplasia (ICD-10) Diabetes type 2, controlled ?E11.9 - Type 2 diabetes mellitus without complications (ICD-10) SVT (supraventricular tachycardia) ?I47.1 - Supraventricular tachycardia (ICD-10) HTN (hypertension) ?I10 - Essential (primary) hypertension (ICD-10) Sleep apnea ?G47.30 - Sleep apnea, unspecified (ICD-10) Surgical History Status post hysteroscopy (06/19/23) ?Z98.890 - Other specified postprocedural states (ICD-10) Status post hysteroscopy (01/17/22) ?Z98.890 - Other specified postprocedural states (ICD-10) H/O cardiac radiofrequency ablation ?Z98.890 - Other specified postprocedural states (ICD-10) History of uterine fibroid ?Z86.018 - Personal history of other benign neoplasm (ICD-10) Status post radiation therapy ?Z92.3 - Personal history of irradiation (ICD-10) S/P lumpectomy, left breast (~08/28/17) ?Z98.890 - Other specified postprocedural states (ICD-10) Family History Father Heart disease Diabetes Liver disease Kidney disease Paternal Grandmother Breast cancer Maternal Grandmother Uterine cancer Social History Narrative: daughter lives with her but smokes outside What is your current living situation?: I presently have a place to live Problems where you live: no known problems In the past 12 months, utilities in danger of being shut off: no In past 12 months, lack of transportation kept you from medical appts, meetings, work, or getting things needed for daily living: no In the past 12 mos, have been you worried that your food would run out before you had money to buy more?: never true In the past 12 mos, the food you bought just didn't last and you didn't have money to buy more?: never true Highest level of school completed/degree received: Bachelor's degree Smoking Status: Never smoker Do you use any of these nicotine containing products: None Second hand tobacco smoke exposure: Yes How often do you have a drink containing alcohol: never How often do you have six or more drinks on one occasion: Never AUDIT-C Alcohol total score: 0 Non-prescribed substance use: denies use Caffeine: Yes Are you now , , , , never or living with a partner: Social isolation score (0-1 are the most socially isolated patients): 0 How often does anyone, including family, friends and others, physically hurt you: never How often does anyone, including family, friends and others, insult or talk down to you: never How often does anyone, including family, friends and others, threaten you with harm: never How often does anyone, including family, friends and others, scream or curse at you: never Do you think of yourself as: straight/heterosexual Gender Identity: female Are you currently sexually active: No Are you using contraception or practicing any form of control: No service: No Meds Home Medications and Allergies Home Medications Medication Instructions Recorded Confirmed Type atorvastatin 40 mg tablet 40 mg PO DAILY 05/11/22 09/19/23 History calcium carbonate 600 mg-vitamin 1 cap PO TID 05/11/22 09/19/23 History D3 10 mcg (400 unit) capsule cholecalciferol (vitamin D3) 10 10 mcg PO DAILY 05/11/22 09/19/23 History mcg (400 unit) capsule hydrochlorothiazide 25 mg tablet 25 mg PO DAILY 05/11/22 09/19/23 History insulin aspart U-100 100 unit/mL 30 unit subcut TID 05/11/22 09/19/23 History (3 mL) subcutaneous pen (Novolog FlexPen U-100 Insulin aspart) insulin degludec 200 unit/mL (3 100 unit subcut QHS 05/11/22 09/19/23 History mL) subcutaneous pen (Tresiba FlexTouch U-200 insulin) liraglutide 0.6 mg/0.1 mL (18 mg/3 1.8 mg subcut QHS 05/11/22 09/19/23 History mL) subcutaneous pen injector (Spiceworks 3-Caden) lisinopril 40 mg tablet 40 mg PO DAILY 05/11/22 09/19/23 History metformin 500 mg tablet,extended 1,000 mg PO BID 05/11/22 09/19/23 History release 24 hr metoprolol tartrate 50 mg tablet 50 mg PO Q12H 05/11/22 09/19/23 History pen needle, diabetic 32 gauge x #50 ea 05/11/22 07/08/23 History 5/32 (BD Ultra-Fine Arielle Pen Needle) vitamin B complex (B 1 tab PO QDAY 05/11/22 09/19/23 History Complex-Vitamin B12 tablet) empagliflozin 10 mg tablet 10 mg PO DAILY 09/19/22 09/19/23 History (Jardiance) gabapentin 300 mg capsule 300 mg PO DAILY 02/08/23 09/19/23 History aspirin 81 mg tablet,delayed 81 mg PO DAILY 09/18/23 09/19/23 History release amlodipine 10 mg tablet 10 mg PO DAILY 09/19/23 09/19/23 History Allergies Allergy/AdvReac Type Severity Reaction Status Date / Time No Known Drug Allergies Allergy Verified 09/19/23 09:42 Exam Narrative: Exam Narrative: Examined patient in her hospital room. Her mother is spoon feeding her ice chips. Patient appears comfortable and in no acute distress. Vision and hearing are grossly normal. Alert and oriented to self, place, time, situation. Friendly, articulate, cooperative. Lungs clear to auscultation. Heart tones with regular rhythm. Moves all 4 extremities. Const: Vital Signs, click to edit/add: Vital Signs - 24 hr 09/19/23 09:50 09/19/23 13:54 09/19/23 14:00 Temperature 97.4 F L 97.3 F L Pulse Rate 76 68 65 Pulse Rate [Pulse Oximeter] Respiratory Rate 16 22 20 Blood Pressure 149/77 H 125/71 121/69 Blood Pressure [Ri ght Arm] Pulse Oximetry 98 95 99 Oxygen Delivery Me thod Room Air Room Air OxyMask Oxygen Flow Rate 6 09/19/23 14:05 09/19/23 14:10 09/19/23 14:15 Temperature Pulse Rate 64 60 70 Pulse Rate [Pulse Oximeter] Respiratory Rate 22 16 22 Blood Pressure 129/69 122/71 125/76 Blood Pressure [Ri ght Arm] Pulse Oximetry 99 99 96 Oxygen Delivery Me thod OxyMask OxyMask Room Air Oxygen Flow Rate 6 6 09/19/23 14:20 09/19/23 14:26 09/19/23 14:33 Temperature 97.3 F L 97.1 F L Pulse Rate 69 68 64 Pulse Rate [Pulse Oximeter] Respiratory Rate 20 22 15 Blood Pressure 129/74 133/73 Blood Pressure [Ri ght Arm] 115/72 Pulse Oximetry 96 95 Oxygen Delivery Me thod Room Air Room Air Room Air Oxygen Flow Rate 09/19/23 14:59 09/19/23 15:00 09/19/23 15:14 Temperature 97.2 F L 97.1 F L Pulse Rate Pulse Rate [Pulse Oximeter] 65 64 64 Respiratory Rate 14 14 14 Blood Pressure Blood Pressure [Ri ght Arm] 118/74 112/72 Pulse Oximetry 95 95 Oxygen Delivery Me thod Room Air Room Air Oxygen Flow Rate 09/19/23 15:29 09/19/23 15:41 09/19/23 16:15 Temperature 97.2 F L 97.5 F L 97.3 F L Pulse Rate Pulse Rate [Pulse Oximeter] 72 73 70 Respiratory Rate 16 14 14 Blood Pressure Blood Pressure [Ri ght Arm] 117/73 113/70 122/72 Pulse Oximetry 95 94 93 Oxygen Delivery Me thod Room Air Room Air Room Air Oxygen Flow Rate 09/19/23 16:48 09/19/23 17:53 09/19/23 19:13 Temperature 97.5 F L 97.7 F 97.6 F Pulse Rate Pulse Rate [Pulse Oximeter] 86 90 99 Respiratory Rate 16 15 16 Blood Pressure Blood Pressure [Ri ght Arm] 121/74 130/69 Pulse Oximetry 93 91 93 Oxygen Delivery Me thod Room Air Room Air Room Air Oxygen Flow Rate 09/19/23 19:26 09/19/23 19:50 Temperature 97.8 F Pulse Rate Pulse Rate [Pulse Oximeter] 93 Respiratory Rate 16 16 Blood Pressure Blood Pressure [Ri ght Arm] 116/74 Pulse Oximetry Oxygen Delivery Me thod Room Air Oxygen Flow Rate Labs Labs: Short CBC 09/19/23 Range/Units 10:00 Hgb 13.3 (12.0-16.0) gm/dL BMP 09/19/23 10:00 Creatinine 0.9 Assessment and Plan Assessment and plan (1) Postmenopausal bleeding: Status: Acute (2) Diabetes type 2, controlled: Problem comment: - 09/19/2023: On Jardiance, Tresiba insulin, Victoza, metformin, NovoLog insulin\- HgA1c 6.9 Status: Acute (3) Endometrial hyperplasia without atypia, complex: Status: Acute (4) Obstructive sleep apnea: Problem comment: Uses CPAP Status: Acute Plan 1. Reviewed impression with patient. Answered her questions. 2. Will hold her Jardiance, Victoza, metformin while she is recovering from surgery. Consider restarting these after she is eating and drinking without nausea and vomiting. 3. Will employ a long-acting insulin available in hospital, Levemir, rather than the Tresiba, and reduce the dose from 100 units every evening down to 50 units every evening. 4. Decrease the dose of the aspart insulin to 20 units 3 times daily while in hospital and will adjust over time when she starts to eat more. 5. Sliding scale aspart insulin 5 times daily for now. 6. Will follow with [facility] surgery while patient is in hospital. 7. Patient agreeable with above stated plans and recommendations.
[2023-09-19] MEDS: INSULIN ASPART 100 UNIT/ML 40 UNIT SUBCUT (22:27)
[2023-09-19] MEDS: ACETAMINOPHEN 325 MG TABLET 650 MG PO (23:34)
[2023-09-20] MEDS: INSULIN ASPART 100 UNIT/ML SUBCUT ×5 (01:54→21:16)
[2023-09-20] MEDS: KETOROLAC 15 MG/ML inj IVP ×4 (02:00→21:08)
[2023-09-20 05:03] VITALS: BP 118/74; PULSE 75; RESP 14; TEMP 37; O2SAT 98
[2023-09-20 06:29] LABS: Hemoglobin* 12.7 gm/dL (12.0-16.0)
[2023-09-20 06:57] LABS: Creatinine* 1.5 mg/dL (0.5-1.5); Estimated Glomerular Filt Rate 39 ml/min
[2023-09-20] MEDS: INSULIN ASPART 100 UNIT/ML 30 UNIT SUBCUT ×3 (07:59→17:58)
--- NOTE | 2023-09-20 08:02 | PM.IMPN1 ---
Progress Note: A&P Assessment and plan (1) Diabetes type 2, controlled: Problem details: - 09/19/2023: On Jardiance, Tresiba insulin, Victoza, metformin, NovoLog insulin: HgA1c 6.9 - currently on 50U of basal insulin, mealtime insulin, SSI - holding oral medications at this time given postoperative status, risk for nausea Status: Acute (2) Obstructive sleep apnea: Problem details: - Uses CPAP Status: Acute (3) Status post total abdominal hysterectomy and bilateral salpingo-oophorectomy: Problem details: - postoperative management and pain control per surgeon Status: Acute Plan - continue insulin per above - restart oral agents after discharge and eating normally at home Subjective Date Seen: 09/20/23 Interval history: Rocío was admitted to the hospital on 09/19 for a FIDELIA with Dr. Ley of [employer]. Hospitalist team was consulted given patient's history of IDDM2, essential HTN, and hyperlipidemia. Postoperatively, patient has done well. She is tolerating po intake, blood sugars have ranged from 132-390. She has had no dizziness or symptoms of hyper/hypoglycemia. Creatinine today is 1.5 Exam Narrative: Exam Narrative: GEN: Alert and oriented, sitting comfortably in bedside chair HEENT: EOMIs bilaterally, no scleral icterus CV: RRR, No concerning murmurs R: LCTA bilaterally without concerning wheezing, air movement adequate Ext: wwp, no concerning edema Skin: No concerning skin lesions or rashes on exposed skin Neuro: Nonfocal Psych: Appropriate Const: Vital Signs, click to edit/add: Vital Signs - 24 hr 09/19/23 09:50 09/19/23 13:54 09/19/23 14:00 Temperature 97.4 F L 97.3 F L Pulse Rate 76 68 65 Pulse Rate [Pulse Oximeter] Respiratory Rate 16 22 20 Blood Pressure 149/77 H 125/71 121/69 Blood Pressure [Ri ght Arm] Pulse Oximetry 98 95 99 Oxygen Delivery Me thod Room Air Room Air OxyMask Oxygen Flow Rate 6 09/19/23 14:05 09/19/23 14:10 09/19/23 14:15 Temperature Pulse Rate 64 60 70 Pulse Rate [Pulse Oximeter] Respiratory Rate 22 16 22 Blood Pressure 129/69 122/71 125/76 Blood Pressure [Ri ght Arm] Pulse Oximetry 99 99 96 Oxygen Delivery Me thod OxyMask OxyMask Room Air Oxygen Flow Rate 6 6 09/19/23 14:20 09/19/23 14:26 09/19/23 14:33 Temperature 97.3 F L 97.1 F L Pulse Rate 69 68 64 Pulse Rate [Pulse Oximeter] Respiratory Rate 20 22 15 Blood Pressure 129/74 133/73 Blood Pressure [Ri ght Arm] 115/72 Pulse Oximetry 96 95 Oxygen Delivery Me thod Room Air Room Air Room Air Oxygen Flow Rate 09/19/23 14:59 09/19/23 15:00 09/19/23 15:14 Temperature 97.2 F L 97.1 F L Pulse Rate Pulse Rate [Pulse Oximeter] 65 64 64 Respiratory Rate 14 14 14 Blood Pressure Blood Pressure [Ri ght Arm] 118/74 112/72 Pulse Oximetry 95 95 Oxygen Delivery Me thod Room Air Room Air Oxygen Flow Rate 09/19/23 15:29 09/19/23 15:41 09/19/23 16:15 Temperature 97.2 F L 97.5 F L 97.3 F L Pulse Rate Pulse Rate [Pulse Oximeter] 72 73 70 Respiratory Rate 16 14 14 Blood Pressure Blood Pressure [Ri ght Arm] 117/73 113/70 122/72 Pulse Oximetry 95 94 93 Oxygen Delivery Me thod Room Air Room Air Room Air Oxygen Flow Rate 09/19/23 16:48 09/19/23 17:53 09/19/23 19:13 Temperature 97.5 F L 97.7 F 97.6 F Pulse Rate Pulse Rate [Pulse Oximeter] 86 90 99 Respiratory Rate 16 15 16 Blood Pressure Blood Pressure [Ri ght Arm] 121/74 130/69 Pulse Oximetry 93 91 93 Oxygen Delivery Me thod Room Air Room Air Room Air Oxygen Flow Rate 09/19/23 19:26 09/19/23 19:50 09/19/23 23:29 Temperature 97.8 F 98.1 F Pulse Rate Pulse Rate [Pulse Oximeter] 93 109 H Respiratory Rate 16 16 12 Blood Pressure Blood Pressure [Ri ght Arm] 116/74 107/57 L Pulse Oximetry 98 Oxygen Delivery Me thod Room Air CPAP Oxygen Flow Rate 09/20/23 05:03 Temperature 98.6 F Pulse Rate Pulse Rate [Pulse Oximeter] 75 Respiratory Rate 14 Blood Pressure Blood Pressure [Ri ght Arm] 118/74 Pulse Oximetry 98 Oxygen Delivery Me thod Room Air Oxygen Flow Rate Labs Labs: Laboratory Results - last 24 hr 09/19/23 09/20/23 10:00 06:19 Hgb 13.3 12.7 Creatinine 0.9 1.5 Estimated Creat Clear 54.61 36.40 Estimated GFR 72 39 Blood Type O Positive Antibody Screen NEGATIVE
--- NOTE | 2023-09-20 08:28 | PM.GYNPNPO ---
FISHERIES TECHNICIAN - A/P Assessment and plan (1) Postmenopausal bleeding: Status: Acute (2) Diabetes type 2, controlled: Problem details: - 09/19/2023: On Jardiance, Tresiba insulin, Victoza, metformin, NovoLog insulin\- HgA1c 6.9 Status: Acute (3) Endometrial hyperplasia without atypia, complex: Status: Acute (4) Obstructive sleep apnea: Problem details: Uses CPAP Status: Acute Postoperative Procedures: Procedures Operation Date: 09/19/23 10:40 Actual Procedure Side Surgeon p ABD Hysterectomy, S&O Anat Ley MD Time Spent With Patient Time: Total time spent is greater than 50% in coordination of care (as documented) at patient's floor/unit and/or counseling patient: Time with patient: less than 15 minutes FISHERIES TECHNICIAN- PN:Subj Post-Op Subjective Time Seen by Provider: 08:15 Date Seen: 09/20/23 Post Operative Details: Subjective: Rocío is a 62-year-old who is postop day 1 from a total abdominal hysterectomy and bilateral salpingo oophorectomy for postmenopausal bleeding, uterine fibroid, complex endometrial hyperplasia without atypia. She is doing well today. She states her pain is well controlled. She is tolerating regular diet. She denies nausea/vomiting. She is urinating without difficulty. Has had adequate urine output. She has been ambulating without difficulty. She is not passing flatus. Preoperative hgb: 13.3, Postoperative hgb: 12.7. Objective: General: Pleasant, , well groomed woman in no acute distress. Vital signs: Per electronic medical record Heart: Regular rate and rhythm without gallop, rub or murmur. Chest: Clear to auscultation bilaterally. Abdomen: Soft, nontender, mildly distended. There are bowel sounds throughout. No CVA or flank tenderness. Incision: Silver-containing dressing in place and dry. Extremities: No pain or edema Assessment: 62-year-old postoperative day# 1 from a total abdominal hysterectomy with bilateral salpingo oophorectomy. Plan: 1. Continue routine postop care. 2. Planning discharge home tomorrow. Subjective: patient has no complaints, pain is well controlled, ambulating well, voiding without difficulty and patient is tolerating oral intake FISHERIES TECHNICIAN-PN: Obj Exam Physical Exam: Vital signs: Temp Pulse Resp BP Pulse Ox O2 Del Method O2 Flow Rate 98.6 F 75 14 118/74 98 Room Air 6 09/20/23 05:03 09/20/23 05:03 09/20/23 05:03 09/20/23 05:03 09/20/23 05:03 09/20/23 05:03 09/19/23 14:10 Urinary Catheter Management: Urethral: Cath placed during this visit: yes, but has since been removed by the nurse Reason for continuing: decision to DC catheter Insertion date: 09/19/23 Insertion time: 11:14 Removal date: 09/20/23 Removal time: 08:04 FISHERIES TECHNICIAN - PN: Obj Data Labs Labs: Laboratory Results - last 24 hr 09/19/23 09/20/23 10:00 06:19 Hgb 13.3 12.7 Creatinine 0.9 1.5 Estimated Creat Clear 54.61 36.40 Estimated GFR 72 39 Blood Type O Positive Antibody Screen NEGATIVE
[2023-09-20 08:30] VITALS: BP 122/76; PULSE 82; RESP 15; TEMP 36.6; O2SAT 94
[2023-09-20] MEDS: METOPROLOL TARTRATE 50 MG TABLET PO ×2 (09:28→21:12)
--- NOTE | 2023-09-20 13:17 | W.PM.NB ---
Nerve Block Nerve Block Time Seen by Provider: 01:05 Date Seen: 09/19/23 Type of block requested by surgeon for post-operative analgesia: TAP Side: bilateral Time out performed: Yes Verification of patient name: Yes Verification of date of : Yes Site marking: site marked Name of person performing procedure: Alyse Continuous monitoring Was continuous monitoring of O2 sat, B/P, environmental monitoring specialist, recorded every 15 minutes?: Yes Procedure Checklist: sterile prep, needles and gloves Ultrasound guided. Images saved: Yes Medications given in 5ml increments after negative aspiration: Marcaine %: 0.25 mL: 30 Needle gauge: 20 and Exparel mL: 10 Patient tolerated procedure well: Yes Additional comments: Needle noted between internal oblique and transversus abdominus. Local spread visualized Block Charges Block Charge (with Pro Fee): TAP Bilateral Use of Ultrasound Machine for Block: Yes- US Guidance/pain block
[2023-09-20 13:41] VITALS: BP 102/63; PULSE 77; RESP 14; TEMP 36.8; O2SAT 92
[2023-09-20] MEDS: GABAPENTIN 300 MG CAPSULE PO (21:11)
[2023-09-20] MEDS: lisinopriL 20 MG TABLET 40 MG PO (21:13)
[2023-09-20] MEDS: hydroCHLOROthiazide 25 MG TABLET PO (21:14)
[2023-09-20] MEDS: AMLODIPINE 10 MG TABLET PO (21:15)
[2023-09-20] MEDS: ATORVASTATIN 10 MG TABLET 40 MG PO (22:00)
[2023-09-20 23:21] VITALS: PULSE 77; RESP 14
[2023-09-21] MEDS: ACETAMINOPHEN 325 MG TABLET 650 MG PO ×2 (00:11→10:54)
[2023-09-21 00:12] VITALS: BP 104/65; PULSE 79; RESP 15; TEMP 36.7
[2023-09-21] MEDS: INSULIN ASPART 100 UNIT/ML SUBCUT ×2 (02:08→07:51)
[2023-09-21] MEDS: IBUPROFEN 600 MG TABLET PO (06:02)
[2023-09-21 06:59] LABS: Chloride* 104 mmol/L (96-114)
[2023-09-21 07:00] VITALS: TEMP 36.5
[2023-09-21 07:00] LABS: Potassium* 4.1 mmol/L (3.6-5.1); Sodium* 137 mmol/L (135-149)
[2023-09-21 07:02] LABS: Creatinine* 1.4 mg/dL (0.5-1.5); Estimated Glomerular Filt Rate 43 ml/min
[2023-09-21 07:03] LABS: Anion Gap 11 mEq/L (7-15); Blood Urea Nitrogen* 40 mg/dL (7-30); Calcium* 8.6 mg/dL (8.4-10.6); Carbon Dioxide* 22 mmol/L (20-32); Glucose* 188 mg/dL (60-115)
[2023-09-21 07:30] VITALS: BP 113/68; PULSE 67; RESP 18; TEMP 36.5; O2SAT 96
--- NOTE | 2023-09-21 07:44 | P.CCN_ITS ---
Subjective Subjective Date Seen: 09/21/23 Interval history: Rocío has been doing well postoperatively. Hospitalist team consulting given h/o IDDM2. BG 190s-300s, tolerating po intake. Creatinine today 1.4 She will restart her oral hypoglycemics upon d/c home, likely discharging today. Objective Objective Data Details: GEN: Alert and sitting comfortably in bedside chair HEENT: EOMIs bilaterally, no scleral icterus CV: RRR, No concerning murmurs R: LCTA bilaterally without concerning wheezing, air movement adequate Ext: wwp, no concerning edema Neuro: Nonfocal Psych: Appropriate Assessment and Plan Assessment and plan (1) Status post total abdominal hysterectomy and bilateral salpingo- oophorectomy: Problem comment: - postoperative management and pain control per surgeon Status: Acute (2) Diabetes type 2, controlled: Problem comment: - 09/19/2023: On Jardiance, Tresiba insulin, Victoza, metformin, NovoLog insulin: HgA1c 6.9 - currently on 50U of basal insulin, mealtime insulin, SSI - holding oral medications at this time given postoperative status, risk for nausea Status: Acute Plan - restart oral diabetic medications upon d/c home - routine PCP f/u
[2023-09-21] MEDS: INSULIN ASPART 100 UNIT/ML 30 UNIT SUBCUT (07:49)
[2023-09-21] MEDS: METOPROLOL TARTRATE 50 MG TABLET PO (07:54)
--- NOTE | 2023-09-21 11:32 | P.DS_ITS ---
DS: Providers Provider Date Seen: 09/21/23 Date of admission: 09/19/23 09:20 Primary care physician: Ibis Chilel MD Admitting Clinician: Anat Ley MD Consults: 09/19/23 13:39 Consult to Physician [CONS] Routine Comment: Consult for postoperative blood sugar management engineer Provider: Hospitalists Has provider been notified: No Attending Physician on discharge: MD Thomas Date of Discharge: 09/21/23 DS: Diagnosis Discharge Diagnosis (1) Status post total abdominal hysterectomy and bilateral salpingo- oophorectomy: Status: Acute Problem details: - postoperative management and pain control per surgeon BONDING AND COMPOSITE FABRICATOR-Discharge Summary Hospital Course Hospital Course Narrative: Patient is a 62 year old admitted on 09/20/2023 for elective surgery. Indication for surgery: Postmenopausal bleeding. She had an uncomplicated surgery. Postoperative course has been uneventful. Vitals have been stable. She has remained afebrile. Today, on postoperative day 2, she reports the pain is well controlled. She has been able to ambulate Without difficulty. She is tolerating regular diet. She is passing flatus. Tavares catheter has been removed, and she is voiding without difficulty. Time Spent with Patient Time attestation: Total time spent providing and/or coordinating discharge services: Time spent: Less than 30 minutes BONDING AND COMPOSITE FABRICATOR - Exam Physical Exam: Vital signs: Temp Pulse Resp BP Pulse Ox O2 Del Method O2 Flow Rate 97.7 F 67 18 113/68 96 Room Air 6 09/21/23 07:30 09/21/23 07:30 09/21/23 07:30 09/21/23 07:30 09/21/23 07:30 09/21/23 07:30 09/19/23 14:10 Narrative: VITAL SIGNS: As noted above. GENERAL APPEARANCE: Alert, cooperative female in no acute distress. MOOD & AFFECT: Normal. HEART: Regular rate and rhythm without murmurs. LUNGS: Lungs are clear to auscultation bilaterally. No crackles, wheezes, or rhonchi. ABDOMEN: Positive bowel sound. Soft, appropriately tender to palpation. Incision covered by silver dressing this has 2 small spots of a bloody discharge that has remained stable through her postop in patient care. EXTREMITIES: Nonedematous. Well perfused. Nontender. NEURO: Intact. BONDING AND COMPOSITE FABRICATOR - DS: Data Data Completed and Pending Labs on day of discharge: Labs from last 24 hours 09/21/23 06:34 Sodium 137 Potassium 4.1 Chloride 104 Carbon Dioxide 22 Anion Gap 11 BUN 40 H Creatinine 1.4 Estimated Creat Clear 39.00 Estimated GFR 43 Glucose 188 H Calcium 8.6 Procedures Procedures: Procedures Operation Date: 09/19/23 10:40 Actual Procedure Side Surgeon p ABD Hysterectomy, S&O Anat Ley MD Complications: none Discharge Plan Discharge Disposition: Home, Self-Care Date of Admission: 09/19/23 09:20 Attending Provider on Discharge: Stacy Guzman Consulting Providers: Betsy Guidry; ,[place]; Jimmy Jensen; Felix Amor; Felicitas Mayberry; Duyen Carrera; Adeline Ervin; Josue Delgado; Keke Mendoza; Sam Villatoro; Vincent Watters; Daxa Peters; Archie Lawler; Vanessa Sood; Juan Goode; Andrew Marques; Juliano Hogue; Cullen Villegas; Davy Patel; Lg Garcia Primary Care Provider: Iibs Chilel Condition: Stable Anticipated Discharge Date/Time: 09/21/23 12:30 Discharge Medications: New oxycodone 5 mg Tablet 5 mg PO 3XD PRN (Reason: Moderate Pain) Qty: 21 0RF docusate sodium 100 mg Capsule 100 mg PO BID PRNQty: 100 0RF ibuprofen 600 mg Tablet 600 mg PO Q6H PRN (Reason: Pain) Qty: 30 0RF Continued Jardiance 10 mg tablet 10 mg PO DAILY gabapentin 300 mg capsule 300 mg PO DAILY lisinopril 40 mg tablet 40 mg PO DAILY insulin aspart U-100 [Novolog FlexPen U-100 Insulin] 100 unit/mL (3 mL) insulin pen 30 unit subcut TID Patient Comments: once/meal, 30u breakfast, 30u lunch, 38u dinner (+ sliding scale with each meal) metformin 500 mg tablet extended release 24 hr 1,000 mg PO BID insulin degludec [Tresiba FlexTouch U-200] 200 unit/mL (3 mL) insulin pen 100 unit subcut QHS hydrochlorothiazide 25 mg tablet 25 mg PO DAILY atorvastatin 40 mg tablet 40 mg PO DAILY metoprolol tartrate 50 mg tablet 50 mg PO Q12H Victoza 3-Caden 0.6 mg/0.1 mL (18 mg/3 mL) pen injector 1.8 mg subcut QHS vitamin B complex [B Complex-Vitamin B12] Tablet 1 tab PO QDAY calcium carbonate-vitamin D3 600 mg-10 mcg (400 unit) capsule 1 cap PO TID cholecalciferol (vitamin D3) 10 mcg (400 unit) capsule 10 mcg PO DAILY aspirin 81 mg tablet,delayed release (DR/EC) 81 mg PO DAILY amlodipine 10 mg tablet 10 mg PO DAILY No Action (DME) pen needle, diabetic [BD Ultra-Fine Arielle Pen Needle] 32 gauge x 5/32 needle See Rx Instructions .ROUTE .MEDSUPPLY Qty: 50 Rx Instructions: As directed Discharge Orders: Discharge Order (Routine); Ordered 09/21/23 Ordered By: Stacy Guzman Patient Education: Hysterectomy (DC) Additional Instructions: Patient to follow up with provider after hospitalization for 1 week incision check, 2 week post-operative visit, and 6 week post-operative visit. Patient to schedule these appointments independently and in agreement with this plan. ACTIVITY RESTRICTIONS: Nothing vaginally for 6 weeks: no tampons/intercourse No driving while taking narcotic pain medication during the day. 1-2 weeks. Lifting restriction: Maximum of 20 pounds for 6 weeks. High impact or core exercises: 6 weeks. Submerge the incisions in water (bath/pool/galvez): 2 weeks. Off of work/school for a minimum of 6 weeks NO RESTRICTIONS for: Walking Going up/down stairs Showering Passenger in a motorized vehicle/car. SYMPTOMS TO REPORT TO YOUR DOCTOR: Bleeding that is red, like a moderate period Passing clots larger than the size of a golf ball Pain not relieved by prescribed medication Fever above 100.4 degrees Fahrenheit A foul vaginal odor Decrease in urination or painful, frequent urinating Chest pain Shortness of breath Tenderness or pain with redness and/swelling in the calf(s) of your leg Follow-up Appointments: [facility]. [facility] to have your dressing removed. 2. [facility] 2weeks for an incision check. 3. A 6 week postop visit to verify that the vaginal cuff is well-healed. Discharge Diet: Diabetic Diet Detail: For DM2 management: okay to restart oral medications on 09/23/23. Follow Up Appointments: Anat Ley MD [Staff Physician] - Ibis Chilel MD [Primary Care Provider] - Forms: [employer] Info Instructions
== END 2023-09-21 11:40 | disposition home or self-care (01) | DRG 513 ==
LOC: OR 10:20 → OB 10:20
PROVIDERS: Family Medicine; Admitting Provider Obstetrics & Gynecology; PCP Family Medicine; Visit Provider Obstetrics & Gynecology
PROC: 0UT94ZZ Resection of Uterus, Percutaneous Endoscopic Approach (ICD-10-PCS; CPT 52000; principal; 2023-09-19 10:30)
DX: N85.01 Benign endometrial hyperplasia (principal); N95.0 Postmenopausal bleeding; D25.9 Leiomyoma of uterus, unspecified; G89.18 Other acute postprocedural pain; G47.33 Obstructive sleep apnea (adult) (pediatric); Z99.89 Dependence on other enabling machines and devices; I12.9 Hypertensive chronic kidney disease with stage 1 through stage 4 chronic kidney disease, or unspecified chronic kidney disease; N18.31 Chronic kidney disease, stage 3a; E11.22 Type 2 diabetes mellitus with diabetic chronic kidney disease; E11.65 Type 2 diabetes mellitus with hyperglycemia; E11.42 Type 2 diabetes mellitus with diabetic polyneuropathy; Z79.84 Long term (current) use of oral hypoglycemic drugs; Z79.4 Long term (current) use of insulin; Z79.85 Long-term (current) use of injectable non-insulin antidiabetic drugs; Z85.3 Personal history of malignant neoplasm of breast; E78.5 Hyperlipidemia, unspecified
CPT/HCPCS: 00840; 36415; 51798; 64488; 76942; 80048; 82565; 82962; 85018; 86850; 86900; 86901; 88307; A4467; A9270; C9290; J0665; J0690; J1100; J1170; J1885; J2250; J2371; J2405; J2704; J2710; J3010; J3490; J7120

== ENCOUNTER 2023-10-30 08:48 | Outpatient (CLI) | payer BC, SELFPAY | END 2023-10-30 08:49 | disposition home or self-care (01) | LOC: NFLDREF 08:49 | PROVIDERS: PCP Family Medicine; Visit Provider Obstetrics & Gynecology | DX: R32 Unspecified urinary incontinence (principal); R39.15 Urgency of urination | CPT/HCPCS: 87086 ==

== ENCOUNTER 2023-11-27 17:53 | Emergency (ER) | payer BC, SELFPAY ==
[2023-11-27] VITALS (31 sets, daily range): BP systolic 58–120; BP diastolic 33–61; PULSE 88–100; RESP 18–20; TEMP 36.8; O2SAT 93–99
--- NOTE | 2023-11-27 18:22 | CT_ITS ---
Patient: SABI STEVENS Facility:?[facility] Patient ID:?[id number] Site Patient ID:?[id number]. Site :?[id number] Study:?CT-Head w/o-11/27/2023 6:54:08 PM Ordering Physician:Nicole Combs Final Report: INDICATION: Syncope, hit head. TECHNIQUE: CT head without contrast. COMPARISON: None. FINDINGS: CSF spaces: Within normal limits for age. Brain parenchyma and extra-axial spaces: The ventura-white differentiation is normal. No sign of mass, hemorrhage, or midline shift. No extra-axial fluid collection. Skull base and calvarium: The visualized paranasal sinuses and mastoid air cells demonstrate no acute or significant findings. The visualized orbits are grossly unremarkable. No skull fractures. IMPRESSION: Unremarkable noncontrast head CT. Please note that all CT scans at this facility use dose modulation, iterative reconstruction, and/or weight-based dosing when appropriate to reduce radiation dose to as low as reasonably achievable. Dictated by Belgica Grace MD @ 11/27/2023 7:22:17 PM Signed by:?Belgica Grace MD @11/27/2023 7:22:17 PM (Electronic Signature)
[2023-11-27 18:27] LABS: Troponin, Point-of-Care* 0.01 ng/ml (0.01-0.04)
[2023-11-27 18:30] LABS: Lactate Sepsis w/Reflex* 3.6 mmol/L (0.5-1.9)
[2023-11-27] MEDS: ONDANSETRON 2 MG/ML inj 4 MG IVP (18:30)
[2023-11-27 18:36] LABS: Basophils Percent Auto 0.2 % (0.0-3.0); Eosinophils Percent Auto 0.9 % (0.0-7.0); Hematocrit 48.3 % (33.0-51.0); Hemoglobin* 15.1 gm/dL (12.0-16.0); Immature Granulocytes Pct Auto 0.4 %; Lymphocytes Percent Auto 3.6 % (20-44); Mean Corpuscular HGB Conc 31 gm/dL (32-36); Mean Corpuscular Hemoglobin 26 pg (26-34); Mean Corpuscular Volume 84 fL (80-100); Monocytes Percent Auto 7.3 % (0.0-11.0); Neutrophils Percent Auto 87.6 % (42.0-72.0); Platelet Count* 409 K/uL (140-440); RDW Coefficient of Variation % 14.4 % (11.5-15.5); Red Blood Count 5.73 m/uL (4.00-5.20); White Blood Count* 16.76 K/uL (4.50-11.00)
[2023-11-27] MEDS: 0.9 % SODIUM CHLORIDE 1000 ml 1,000 ML IV ×2 (18:36→19:45)
[2023-11-27 18:38] LABS: Slide Review Reflex No
[2023-11-27 18:49] LABS: Chloride* 103 mmol/L (96-114); Sodium* 143 mmol/L (135-149)
[2023-11-27 18:51] LABS: Creatinine* 1.7 mg/dL (0.5-1.5); Estimated Glomerular Filt Rate 34 ml/min
[2023-11-27 18:52] LABS: Alanine Aminotransferase* 30 U/L (4-35); Alkaline Phosphatase* 112 U/L (40-150); Anion Gap 16 mEq/L (7-15); Aspartate Amino Transferase* 25 U/L (12-35); Bilirubin Direct* 0.1 mg/dL (0.0-0.5); Bilirubin Total* 0.6 mg/dL (0.1-1.5); Blood Urea Nitrogen* 46 mg/dL (7-30); Carbon Dioxide* 24 mmol/L (20-32); Glucose* 113 mg/dL (60-115); Total Protein* 9.5 g/dL (6.0-8.3)
[2023-11-27 18:53] LABS: Calcium* 10.6 mg/dL (8.4-10.6)
[2023-11-27 18:56] LABS: C Reactive Protein* < 0.5 mg/dL (0.5-1.0)
--- NOTE | 2023-11-27 19:12 | ED_ITS ---
HPI - General Adult General Date Seen: 11/27/23 Chief complaint: Syncope/Fainted Stated complaint: Vomited-passed out and hit forehead-loss of con Time Seen by Provider: 11/27/23 18:21 Source: patient, family, RN notes reviewed and old records reviewed Mode of arrival: ambulatory Limitations: no limitations History of Present Illness HPI narrative: Patient is a 62-year-old woman here with her daughter for evaluation of syncope and head injury. She says she was in her usual state of health until around lunchtime today when she started to feel nauseated. She took a Zofran, went to work but started to feel worse, came home and then had multiple episodes of diarrhea followed by 2 episodes of vomiting. She then had a syncopal episode and hit her head on the floor. She has not had vomiting since then. Was noted to be hypotensive on arrival. She had hysterectomy in August of this year. No more recent procedures. Denies any bleeding history. She has not had a fever that she knows of. Denies chest pain or difficulty breathing. No bloody or black stools. No severe abdominal pain. At this point, she notes pain where she hit her forehead and pain in her nose. Related Data Home Medications Medication Instructions Recorded Confirmed atorvastatin 40 mg tablet 40 mg PO DAILY 05/11/22 10/30/23 cholecalciferol (vitamin D3) 10 10 mcg PO DAILY 05/11/22 10/30/23 mcg (400 unit) capsule hydrochlorothiazide 25 mg tablet 25 mg PO DAILY 05/11/22 10/30/23 insulin aspart U-100 100 unit/mL 30 unit subcut TID 05/11/22 10/30/23 (3 mL) subcutaneous pen (Novolog FlexPen U-100 Insulin aspart) insulin degludec 200 unit/mL (3 100 unit subcut QHS 05/11/22 10/30/23 mL) subcutaneous pen (Tresiba FlexTouch U-200 insulin) liraglutide 0.6 mg/0.1 mL (18 mg/3 1.8 mg subcut QHS 05/11/22 10/30/23 mL) subcutaneous pen injector (Victoza 3-Caden) lisinopril 40 mg tablet 40 mg PO DAILY 05/11/22 10/30/23 metformin 500 mg tablet,extended 1,000 mg PO BID 05/11/22 10/30/23 release 24 hr metoprolol tartrate 50 mg tablet 50 mg PO Q12H 05/11/22 10/30/23 pen needle, diabetic 32 gauge x #50 ea 05/11/22 10/30/23 (BD Ultra-Fine Arielle Pen Needle) vitamin B complex (B 1 tab PO QDAY 05/11/22 10/30/23 Complex-Vitamin B12 tablet) empagliflozin 10 mg tablet 10 mg PO DAILY 09/19/22 10/30/23 (Jardiance) gabapentin 300 mg capsule 300 mg PO DAILY 02/08/23 10/30/23 aspirin 81 mg tablet,delayed 81 mg PO DAILY 09/18/23 10/30/23 release ascorbate calcium (vitamin C) 500 500 mg PO QDAY 09/26/23 10/30/23 mg tablet calcium carbonate 600 mg-vitamin 1 cap PO QDAY 10/03/23 10/30/23 D3 10 mcg (400 unit) capsule Previous Rx's Medication Instructions Recorded ibuprofen 600 mg tablet 600 mg PO Q6H PRN Pain #30 tabs 09/20/23 Allergies Allergy/AdvReac Type Severity Reaction Status Date / Time No Known Drug Allergies Allergy Verified 10/30/23 08:51 Review of Systems Status of ROS: Reports: 10 or more systems reviewed and unremarkable except as noted in History and below [facility] Medical History Restless leg syndrome ?G25.81 - Restless legs syndrome (ICD-10) Microalbuminuria ?R80.9 - Proteinuria, unspecified (ICD-10) Adenomatous colon polyp ?D12.6 - Benign neoplasm of colon, unspecified (ICD-10) Psoriasis ?L40.9 - Psoriasis, unspecified (ICD-10) Allergic rhinitis ?J30.9 - Allergic rhinitis, unspecified (ICD-10) Hyperlipidemia ?E78.5 - Hyperlipidemia, unspecified (ICD-10) Diabetic polyneuropathy ?E11.42 - Type 2 diabetes mellitus with diabetic polyneuropathy (ICD-10) Hepatitis B immune ?Z78.9 - Other specified health status (ICD-10) Uterine fibroid ?D25.9 - Leiomyoma of uterus, unspecified (ICD-10) Obstructive sleep apnea ?G47.33 - Obstructive sleep apnea (adult) (pediatric) (ICD-10) Postmenopausal bleeding ?N95.0 - Postmenopausal bleeding (ICD-10) 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) ?C50.912 - Malignant neoplasm of unspecified site of left female breast (ICD- 10) Stage 3a chronic kidney disease (CKD) ?N18.31 - Chronic kidney disease, stage 3a (ICD-10) Lobular carcinoma of breast ?C50.919 - Malignant neoplasm of unspecified site of unspecified female breast (ICD-10) Endometrial hyperplasia without atypia, complex (01/17/22) ?N85.01 - Benign endometrial hyperplasia (ICD-10) Diabetes type 2, controlled ?E11.9 - Type 2 diabetes mellitus without complications (ICD-10) SVT (supraventricular tachycardia) ?I47.1 - Supraventricular tachycardia (ICD-10) HTN (hypertension) ?I10 - Essential (primary) hypertension (ICD-10) Sleep apnea ?G47.30 - Sleep apnea, unspecified (ICD-10) Surgical History Status post total abdominal hysterectomy and bilateral salpingo-oophorectomy (09/19/23) ?Z90.710 - Acquired absence of both cervix and uterus (ICD-10) ?Z90.722 - Acquired absence of ovaries, bilateral (ICD-10) ?Z90.79 - Acquired absence of other genital organ(s) (ICD-10) Status post hysteroscopy (06/19/23) ?Z98.890 - Other specified postprocedural states (ICD-10) Status post hysteroscopy (01/17/22) ?Z98.890 - Other specified postprocedural states (ICD-10) H/O cardiac radiofrequency ablation ?Z98.890 - Other specified postprocedural states (ICD-10) History of uterine fibroid ?Z86.018 - Personal history of other benign neoplasm (ICD-10) Status post radiation therapy ?Z92.3 - Personal history of irradiation (ICD-10) S/P lumpectomy, left breast (~08/28/17) ?Z98.890 - Other specified postprocedural states (ICD-10) Family History Father Heart disease Diabetes Liver disease Kidney disease Paternal Grandmother Breast cancer Maternal Grandmother Uterine cancer Social History Narrative: daughter lives with her but smokes outside What is your current living situation?: I presently have a place to live Problems where you live: no known problems In the past 12 months, utilities in danger of being shut off: no In past 12 months, lack of transportation kept you from medical appts, meetings, work, or getting things needed for daily living: no In the past 12 mos, have been you worried that your food would run out before you had money to buy more?: never true In the past 12 mos, the food you bought just didn't last and you didn't have money to buy more?: never true Highest level of school completed/degree received: Bachelor's degree Smoking Status: Never smoker Do you use any of these nicotine containing products: None Second hand tobacco smoke exposure: Yes How often do you have a drink containing alcohol: never How often do you have six or more drinks on one occasion: Never AUDIT-C Alcohol total score: 0 Non-prescribed substance use: denies use Caffeine: Yes Are you now , , , , never or living with a partner: Social isolation score (0-1 are the most socially isolated patients): 0 How often does anyone, including family, friends and others, physically hurt you : never How often does anyone, including family, friends and others, insult or talk down to you: never How often does anyone, including family, friends and others, threaten you with harm: never How often does anyone, including family, friends and others, scream or curse at you: never Do you think of yourself as: straight/heterosexual Gender Identity: female Are you currently sexually active: No Are you using contraception or practicing any form of control: No service: No Exam Narrative: Exam Narrative: Vital signs as noted above. In general, an alert, nontoxic woman. She is conversant, speaking in full sentences. Head: Normocephalic, small red ubaldo on her forehead. No hematoma, abrasion or laceration. Eyes: Pupils are equal reactive. Extraocular movements are full. Conjunctivae are normal. ENT: Mucous membranes are moist. Throat is normal. Tenderness over her nose, no obvious deformity. No other facial trauma. Neck: Supple without lymphadenopathy. Nontender to palpation. Heart: Regular rate and rhythm. No murmur or rub. Lungs: Clear bilaterally. No increased work of breathing, crackles or wheezes. Abdomen: Soft and nontender. Extremities: Well perfused. No edema. No calf tenderness. Pulses intact. Neurologic: Patient is alert and oriented to person and place. Speech is flue nt. Face is symmetric. Moves all extremities equally. Affect: Normal. Skin: Warm and dry. Well perfused. Const: Vital Signs, click to edit/add: Vital Signs - 24 hr 11/27/23 17:56 11/27/23 18:21 11/27/23 18:37 Temperature Pulse Rate 88 Pulse Rate [Right Pulse Oximeter] 92 Respiratory Rate 20 Blood Pressure 96/48 L Blood Pressure [Ri ght Upper Arm] 58/43 L Pulse Oximetry 97 97 96 Oxygen Delivery Me thod Room Air 11/27/23 18:38 11/27/23 18:40 11/27/23 18:42 Temperature Pulse Rate 89 90 Pulse Rate [Right Pulse Oximeter] Respiratory Rate Blood Pressure 73/33 L Blood Pressure [Ri ght Upper Arm] Pulse Oximetry 95 93 96 Oxygen Delivery Me thod 11/27/23 18:53 11/27/23 18:54 11/27/23 19:03 Temperature Pulse Rate 90 94 Pulse Rate [Right Pulse Oximeter] Respiratory Rate Blood Pressure 106/52 L 106/59 L Blood Pressure [Ri ght Upper Arm] Pulse Oximetry 97 95 Oxygen Delivery Me thod 11/27/23 19:06 11/27/23 19:10 11/27/23 19:15 Temperature Pulse Rate 91 92 Pulse Rate [Right Pulse Oximeter] Respiratory Rate Blood Pressure Blood Pressure [Ri ght Upper Arm] Pulse Oximetry 99 98 96 Oxygen Delivery Me thod 11/27/23 19:20 11/27/23 19:22 11/27/23 19:30 Temperature Pulse Rate Pulse Rate [Right Pulse Oximeter] Respiratory Rate Blood Pressure Blood Pressure [Ri ght Upper Arm] Pulse Oximetry 98 97 98 Oxygen Delivery Me thod 11/27/23 19:40 11/27/23 19:42 11/27/23 19:45 Temperature Pulse Rate 93 Pulse Rate [Right Pulse Oximeter] Respiratory Rate Blood Pressure Blood Pressure [Ri ght Upper Arm] Pulse Oximetry 97 96 98 Oxygen Delivery Me thod 11/27/23 19:50 11/27/23 20:00 11/27/23 20:02 Temperature 98.2 F Pulse Rate 93 Pulse Rate [Right Pulse Oximeter] Respiratory Rate 18 Blood Pressure Blood Pressure [Ri ght Upper Arm] Pulse Oximetry 97 96 Oxygen Delivery Me thod 11/27/23 20:02 11/27/23 20:03 11/27/23 20:15 Temperature Pulse Rate 93 93 95 Pulse Rate [Right Pulse Oximeter] Respiratory Rate Blood Pressure 115/57 L Blood Pressure [Ri ght Upper Arm] Pulse Oximetry 97 98 98 Oxygen Delivery Me thod 11/27/23 20:22 11/27/23 20:30 11/27/23 20:42 Temperature Pulse Rate 94 95 96 Pulse Rate [Right Pulse Oximeter] Respiratory Rate Blood Pressure 107/49 L 120/57 L Blood Pressure [Ri ght Upper Arm] Pulse Oximetry 97 97 96 Oxygen Delivery Me thod 11/27/23 20:45 11/27/23 21:00 11/27/23 21:02 Temperature Pulse Rate 94 95 98 Pulse Rate [Right Pulse Oximeter] Respiratory Rate Blood Pressure 112/60 Blood Pressure [Ri ght Upper Arm] Pulse Oximetry 96 96 95 Oxygen Delivery Me thod 11/27/23 21:15 11/27/23 21:22 Temperature Pulse Rate 100 100 Pulse Rate [Right Pulse Oximeter] Respiratory Rate Blood Pressure 114/61 Blood Pressure [Ri ght Upper Arm] Pulse Oximetry 95 98 Oxygen Delivery Me thod Documenting provider has reviewed patient's vital signs: yes Course Course ED Course: Following initial evaluation, patient was brought to [facility], accept a monitor, IV established and fluids were hung. Her blood pressures did improve from initial recording of 58 systolic to 88 systolic after a couple 100 mL of fluid. I did a bedside ultrasound. She has good cardiac motility, no pericardial effusion, normal right ventricle. No free intraperitoneal fluid, IVC not significantly dilated, respiratory variation present. Aorta difficult to visualize secondary to overlying bowel gas. Labs were drawn. An EKG was done, this shows a sinus rhythm, ventricular rate of 89. No acute ischemic changes, normal T-waves. CT scan of the head read as negative by Radiology. Blood pressure improved. Patient was given 2 L of fluid. Labs are notable for a white blood cell count of 16.8, hemoglobin of 15, possibly an element of hemoconcentration as initial lactate was 3.6 and there was evidence of some prerenal azotemia with a BUN of 46 and a creatinine of 1.7. Lactate improved to 2 after fluids. Patient is not febrile, presents with vomiting and diarrhea, at this point no evidence of bacterial infection. Urinalysis is still pending. I think symptoms are more likely related to fluid losses from vomiting and diarrhea. She feels improved at this time. She did start to note some pain in her lower cervical spine and between her shoulder blades, CT scan of the cervical and thoracic spine ordered, radiology read pending. D-dimer was 0.56, normal for age. Normal right ventricle, normal O2 sats. I do not think this represents pulmonary embolism. Patient remains comfortable, tachycardia and blood pressure are improved. UA showed trace ketones, some glucose, but no evidence of significant infection, 0- 2 red cells 2-5 white cells with moderate squames. I think it is reasonable to let her go home. Continue hydration at home, I prescribe Zofran if needed. For new symptoms such as high fevers, chills, recurrent syncope, severe abdominal pain etcetera return any time for re-evaluation. Vital Signs Vital signs: Initial Vital Signs Pulse Rate 92 11/27/23 17:56 Pulse Rhythm Regular 11/27/23 17:56 Pulse Strength 3+ Normal 11/27/23 17:56 Respiratory Rate 20 11/27/23 17:56 Blood Pressure 58/43 L 11/27/23 17:56 Blood Pressure Mean 48 L 11/27/23 17:56 Blood Pressure Position Sitting 11/27/23 17:56 Pulse Oximetry 97 11/27/23 17:56 Oxygen Delivery Method Room Air 11/27/23 17:56 Vital Signs Pulse Rate 92 11/27/23 17:56 Respiratory Rate 20 11/27/23 17:56 Blood Pressure 58/43 L 11/27/23 17:56 Pulse Oximetry 97 11/27/23 17:56 Oxygen Delivery Method Room Air 11/27/23 17:56 Temperature 98.2 F 11/27/23 20:02 Pulse Rate 100 11/27/23 21:22 Respiratory Rate 18 11/27/23 20:02 Blood Pressure 114/61 11/27/23 21:22 Pulse Oximetry 98 11/27/23 21:22 Oxygen Delivery Method Room Air 11/27/23 17:56 Medications Administered Medications: Discontinued Medications Generic Name Dose Route Start Last Admin Trade Name Freq PRN Reason Stop Dose Admin Sodium Chloride 1,000 mls @ 1,000 mls/hr 11/27/23 18:30 11/27/23 19:36 0.9 % Sodium Chloride 1000 Ml IV 11/27/23 19:29 Infused .Q1H [facility]ID Infusion Sodium Chloride 1,000 mls @ 1,000 mls/hr 11/27/23 19:45 11/27/23 20:15 0.9 % Sodium Chloride 1000 Ml IV 11/27/23 20:44 Infused .Q1H OMID Infusion Ondansetron HCl 4 mg 11/27/23 18:21 11/27/23 18:30 Ondansetron 2 Mg/Ml Inj IVP 11/27/23 18:22 4 mg ONCE ONE Administration Medical Decision Making Lab Data Labs: Lab Results 11/27/23 11/27/23 11/27/23 Range/Units 18:10 20:15 21:50 WBC 16.76 H (4.50-11.00) K/uL RBC 5.73 H (4.00-5.20) m/uL Hgb 15.1 (12.0-16.0) gm/dL Hct 48.3 (33.0-51.0) % MCV 84 (80-100) fL MCH 26 (26-34) pg MCHC 31 L (32-36) gm/dL RDW Coeff of Emilia 14.4 (11.5-15.5) % Plt Count 409 (140-440) K/uL Neut % (Auto) 87.6 H (42.0-72.0) % Lymph % (Auto) 3.6 L (20-44) % [place] % (Auto) 7.3 (0.0-11.0) % Eos % (Auto) 0.9 (0.0-7.0) % Baso % (Auto) 0.2 (0.0-3.0) % Neut # (Auto) 14.70 H (1.7-7.0) K/uL Lymph # (Auto) 0.60 L (0.90-2.90) K/uL [place] # (Auto) 1.20 H (0.00-0.90) K/UL Eos # (Auto) 0.20 (0.00-0.50) K/uL Baso # (Auto) 0.00 (0.00-0.30) K/uL Abs Immat Gran (auto) 0.10 (0.00-0.30) K/uL Imm/Tot Granulo (auto) 0.4 % D-Dimer Quant (PE/DVT) 0.56 H (0.00-0.50) ug/ml Sodium 143 141 (135-149) mmol/L Potassium 4.0 4.6 (3.6-5.1) mmol/L Chloride 103 109 (96-114) mmol/L Carbon Dioxide 24 22 (20-32) mmol/L Anion Gap 16 H 10 (7-15) mEq/L BUN 46 H 49 H (7-30) mg/dL Creatinine 1.7 H 1.4 (0.5-1.5) mg/dL Estimated GFR 34 43 ml/min Glucose 113 130 H (60-115) mg/dL Lactate 3.6 H 2.0 H (0.5-1.9) mmol/L Calcium 10.6 8.6 (8.4-10.6) mg/dL Total Bilirubin 0.6 (0.1-1.5) mg/dL Direct Bilirubin 0.1 (0.0-0.5) mg/dL AST 25 (12-35) U/L ALT 30 (4-35) U/L Alkaline Phosphatase 112 (40-150) U/L C-Reactive Protein < 0.5 L (0.5-1.0) mg/dL Total Protein 9.5 H (6.0-8.3) g/dL Albumin 5.0 (3.3-5.0) g/dL Urine Color (Yellow) Urine Appearance (Clear) Urine pH (5.0-8.5) Ur Specific [place] (1.000-1.030) Urine Protein (Negative) Urine Glucose (UA) (Negative) Urine Ketones (Negative) Urine Blood (Negative) Urine Nitrite (Negative) Urine Bilirubin (Negative) Urine Urobilinogen (0.2-1.0) Ur Leukocyte Esterase (Negative) Urine RBC (0-2) Urine WBC (0-5) Ur Squamous Epith Cells (None-Few) Amorphous Sediment (None) Urine Bacteria (None) POC Troponin I 0.01 (0.01-0.04) ng/ml 11/27/23 Range/Units 22:48 WBC (4.50-11.00) K/uL RBC (4.00-5.20) m/uL Hgb (12.0-16.0) gm/dL Hct (33.0-51.0) % MCV (80-100) fL MCH (26-34) pg MCHC (32-36) gm/dL RDW Coeff of Emilia (11.5-15.5) % Plt Count (140-440) K/uL Neut % (Auto) (42.0-72.0) % Lymph % (Auto) (20-44) % [place] % (Auto) (0.0-11.0) % Eos % (Auto) (0.0-7.0) % Baso % (Auto) (0.0-3.0) % Neut # (Auto) (1.7-7.0) K/uL Lymph # (Auto) (0.90-2.90) K/uL [place] # (Auto) (0.00-0.90) K/UL Eos # (Auto) (0.00-0.50) K/uL Baso # (Auto) (0.00-0.30) K/uL Abs Immat Gran (auto) (0.00-0.30) K/uL Imm/Tot Granulo (auto) % D-Dimer Quant (PE/DVT) (0.00-0.50) ug/ml Sodium (135-149) mmol/L Potassium (3.6-5.1) mmol/L Chloride (96-114) mmol/L Carbon Dioxide (20-32) mmol/L Anion Gap (7-15) mEq/L BUN (7-30) mg/dL Creatinine (0.5-1.5) mg/dL Estimated GFR ml/min Glucose (60-115) mg/dL Lactate (0.5-1.9) mmol/L Calcium (8.4-10.6) mg/dL Total Bilirubin (0.1-1.5) mg/dL Direct Bilirubin (0.0-0.5) mg/dL AST (12-35) U/L ALT (4-35) U/L Alkaline Phosphatase (40-150) U/L C-Reactive Protein (0.5-1.0) mg/dL Total Protein (6.0-8.3) g/dL Albumin (3.3-5.0) g/dL Urine Color Yellow (Yellow) Urine Appearance Clear (Clear) Urine pH 5.0 (5.0-8.5) Ur Specific [place] 1.020 (1.000-1.030) Urine Protein 2+ A (Negative) Urine Glucose (UA) 2+ A (Negative) Urine Ketones Trace A (Negative) Urine Blood Negative (Negative) Urine Nitrite Negative (Negative) Urine Bilirubin Negative (Negative) Urine Urobilinogen 0.2 (0.2-1.0) Ur Leukocyte Esterase Negative (Negative) Urine RBC 0-2 (0-2) Urine WBC 2-5 (0-5) Ur Squamous Epith Cells Moderate A (None-Few) Amorphous Sediment Few A (None) Urine Bacteria Moderate A (None) POC Troponin I (0.01-0.04) ng/ml Discharge Plan Discharge Clinical Impression: Nausea vomiting and diarrhea, Acute dehydration, Syncope Patient Disposition: Home, Self-Care Condition: Improved Instructions: Dehydration (ED), Syncope (DC), Acute Nausea and Vomiting (ED) Additional Instructions: Continue to work on hydration at home. Zofran if needed for further nausea or vomiting. Ibuprofen or Tylenol if needed for back pain. If you have new symptoms such as fevers, chills, persistent vomiting despite treatment, recurrent fainting, significant abdominal pain or other worsening, return any time for re-evaluation. Prescriptions: No Action Jardiance 10 mg tablet 10 mg PO DAILY gabapentin 300 mg capsule 300 mg PO DAILY lisinopril 40 mg tablet 40 mg PO DAILY (DME) pen needle, diabetic [BD Ultra-Fine Arielle Pen Needle] 32 gauge x 5/32 needle See Rx Instructions .ROUTE .MEDSUPPLY Qty: 50 Rx Instructions: As directed insulin aspart U-100 [Novolog FlexPen U-100 Insulin] 100 unit/mL (3 mL) insulin pen 30 unit subcut TID Patient Comments: once/meal, 30u breakfast, 30u lunch, 38u dinner (+ sliding scale with each meal) metformin 500 mg tablet extended release 24 hr 1,000 mg PO BID insulin degludec [Tresiba FlexTouch U-200] 200 unit/mL (3 mL) insulin pen 100 unit subcut QHS hydrochlorothiazide 25 mg tablet 25 mg PO DAILY atorvastatin 40 mg tablet 40 mg PO DAILY metoprolol tartrate 50 mg tablet 50 mg PO Q12H Victoza 3-Caden 0.6 mg/0.1 mL (18 mg/3 mL) pen injector 1.8 mg subcut QHS vitamin B complex [B Complex-Vitamin B12] Tablet 1 tab PO QDAY cholecalciferol (vitamin D3) 10 mcg (400 unit) capsule 10 mcg PO DAILY calcium carbonate-vitamin D3 600 mg-10 mcg (400 unit) capsule 1 cap PO QDAY ascorbate calcium (vitamin C) 500 mg tablet 500 mg PO QDAY aspirin 81 mg tablet,delayed release (DR/EC) 81 mg PO DAILY ibuprofen 600 mg Tablet 600 mg PO Q6H PRN (Reason: Pain) Qty: 30 0RF Follow Up/Referrals: Ibis Chilel MD [Primary Care Provider] - Stand Alone Forms: [facility] Info Inst[facility]
[2023-11-27 20:47] LABS: D Dimer Quantitative* 0.56 ug/ml (0.00-0.50)
--- NOTE | 2023-11-27 20:58 | CT_ITS ---
Patient: SABI STEVENS Facility:?[facility] R[facility] Patient ID:?[id number] Site Patient ID:?[id number]. Site :?[id number] Study:?CT-Spine Cervical W/O-11/27/2023 9:49:19 PM Ordering Physician:CYN Final Report: Indication: Neck pain. Trauma. Technique: Noncontrast axial CT of the cervical spine with coronal and sagittal reformats are provided. No comparisons. Findings: The overall stature, alignment of the cervical spine is within normal limits. No convincing evidence of suspicious bony fragments narrowing the central canal or neural foramina. Prevertebral soft tissues, cervical airway, dens and lateral masses are within normal limits. Mild scattered degenerative changes of the cervical spine. Impression: 1. No convincing radiographic evidence of acute osseous injury. 2. Mild scattered degenerative changes of the cervical spine. Please note that all CT scans at this facility use dose modulation, iterative reconstruction, and/or weight-based dosing when appropriate to reduce radiation dose to as low as reasonably achievable. Dictated by Rubin Muhammad MD @ 11/27/2023 10:13:58 PM Signed by:?Rubin Muhammad MD @11/27/2023 10:13:58 PM (Electronic Signature)
--- NOTE | 2023-11-27 20:58 | CT_ITS ---
Patient: SABI STEVENS Facility:?[facility] R[facility] Patient ID:?[id number] Site Patient ID:?[id number]. Site :?1960 Study:?CT-Spine Thoracic W/O-11/27/2023 9:49:50 PM Ordering Physician:CYN Final Report: INDICATION: Mid back pain TECHNIQUE: Non-contrast axial CT of the cervical spine with coronal and sagittal reconstructions. No comparisons. FINDINGS: The overall stature and alignment of the thoracic spine is within normal limits. No evidence of bony fragments narrowing the central canal or visualized neural foramina. There is evidence of flowing syndesmophytes along the right anterior vertebral body margin that may represent DISH. There is calcification along the dorsal aspect the intervertebral disc spaces scattered throughout the thoracic spine most prevalent at T5-6 level. This may represent calcification of the posterior peripheral annular fibers of underlying disc protrusions. Impression: 1. No radiographic evidence of acute osseous injury. 2. Findings appearing suggestive of presence of DISH. Please note that all CT scans at this facility use dose modulation, iterative reconstruction, and/or weight-based dosing when appropriate to reduce radiation dose to as low as reasonably achievable. Dictated by Rubin Muhammad MD @ 11/27/2023 10:17:14 PM Signed by:?Rubin Muhammad MD @11/27/2023 10:17:14 PM (Electronic Signature)
[2023-11-27 22:26] LABS: Chloride* 109 mmol/L (96-114); Potassium* 4.6 mmol/L (3.6-5.1); Sodium* 141 mmol/L (135-149)
[2023-11-27 22:29] LABS: Anion Gap 10 mEq/L (7-15); Blood Urea Nitrogen* 49 mg/dL (7-30); Carbon Dioxide* 22 mmol/L (20-32); Creatinine* 1.4 mg/dL (0.5-1.5); Estimated Glomerular Filt Rate 43 ml/min; Glucose* 130 mg/dL (60-115)
[2023-11-27 22:30] LABS: Calcium* 8.6 mg/dL (8.4-10.6)
[2023-11-27 23:03] LABS: Appearance Urine Clear (Clear); Bilirubin Urine Negative (Negative); Blood Urine Negative (Negative); Color Urine Yellow (Yellow); Glucose Urine 2+ (Negative); Ketones Urine Trace (Negative); Leukocyte Esterase Urine Negative (Negative); Nitrite Urine Negative (Negative); Protein Urine 2+ (Negative); Urobilinogen Urine 0.2 (0.2-1.0)
[2023-11-27 23:13] LABS: Amorphous Sediment Urine Few; Bacteria Urine Moderate; RBC Urine 0-2 (0-2); Squamous Epithelial Cell Urine Moderate (None-Few)
== END 2023-11-27 23:54 | disposition home or self-care (01) ==
PROVIDERS: Emergency Provider Emergency Medicine; PCP Family Medicine
DX: R11.2 Nausea with vomiting, unspecified (principal); E86.0 Dehydration; R55 Syncope and collapse
CPT/HCPCS: 36415; 70450; 72125; 72128; 80048; 80076; 81001; 83605; 84484; 85025; 85379; 86140; 87086; 93005; 94761; 99284; 99285; J2405; J7030

== ENCOUNTER 2024-06-03 13:43 | Emergency (ER) | payer BC, SELFPAY ==
[2024-06-03 13:54] VITALS: BP 135/69; PULSE 98; RESP 16; TEMP 37.1; O2SAT 98; BMI 32.8
--- NOTE | 2024-06-03 14:36 | ED.GENADULT ---
HPI - General Adult General Time Seen by Provider: 14:37 Date Seen: 06/03/24 Chief complaint: Lower Extremity Swelling Stated complaint: leg swelling/infection in toe Time Seen by Provider: 06/03/24 14:36 Source: patient and RN notes reviewed Mode of arrival: ambulatory Limitations: no limitations History of Present Illness HPI narrative: This 63-year-old female is coming into the ER with concern of infection in her toe. She has ingrown toenail on the big toenail of her left foot. She started noting pain on the ball of her foot and swelling Sunday morning. The toe with the ingrown toenail is not that painful but the ball of the foot is. She is noting significant pain with attempting to walk. She has been feeling significant chills but no noted fever. There is no known trauma. She has noted a spot in the right medial calf that it has become red and is tender. She is on a 81 mg aspirin daily. Patient is also diabetic. Related Data Home Medications ?Medication ?Instructions ?Recorded ?Confirmed atorvastatin 40 mg tablet 40 mg PO DAILY 05/11/22 10/30/23 cholecalciferol (vitamin D3) 10 10 mcg PO DAILY 05/11/22 10/30/23 mcg (400 unit) capsule hydrochlorothiazide 25 mg tablet 25 mg PO DAILY 05/11/22 10/30/23 insulin aspart U-100 100 unit/mL 30 unit subcut TID 05/11/22 10/30/23 (3 mL) subcutaneous pen (Novolog FlexPen U-100 Insulin aspart) insulin degludec 200 unit/mL (3 100 unit subcut QHS 05/11/22 10/30/23 mL) subcutaneous pen (Tresiba FlexTouch U-200 insulin) liraglutide 0.6 mg/0.1 mL (18 mg/3 1.8 mg subcut QHS 05/11/22 10/30/23 mL) subcutaneous pen injector (Victoza 3-Caden) lisinopril 40 mg tablet 40 mg PO DAILY 05/11/22 10/30/23 metformin 500 mg tablet,extended 1,000 mg PO BID 05/11/22 10/30/23 release 24 hr metoprolol tartrate 50 mg tablet 50 mg PO Q12H 05/11/22 10/30/23 pen needle, diabetic 32 gauge x #50 ea 05/11/22 10/30/23/32 (BD Ultra-Fine Arielle Pen Needle) vitamin B complex (B 1 tab PO QDAY 05/11/22 10/30/23 Complex-Vitamin B12 tablet) empagliflozin 10 mg tablet 10 mg PO DAILY 09/19/22 10/30/23 (Jardiance) gabapentin 300 mg capsule 300 mg PO DAILY 02/08/23 10/30/23 aspirin 81 mg tablet,delayed 81 mg PO DAILY 09/18/23 10/30/23 release ascorbate calcium (vitamin C) 500 500 mg PO QDAY 09/26/23 10/30/23 mg tablet calcium 600 mg (as 1 cap PO QDAY 10/03/23 10/30/23 carbonate)-vitamin D3 10 mcg (400 unit) capsule Previous Rx's ?Medication ?Instructions ?Recorded ibuprofen 600 mg tablet 600 mg PO Q6H PRN Pain #30 tabs 09/20/23 cephalexin 500 mg tablet 500 mg PO TID #21 tabs 06/03/24 Allergies Allergy/AdvReac Type Severity Reaction Status Date / Time No Known Drug Allergies Allergy Verified 10/30/23 08:51 Review of Systems Narrative: As per HPI. [facility] Medical History Restless leg syndrome ?G25.81 - Restless legs syndrome (ICD-10) Microalbuminuria ?R80.9 - Proteinuria, unspecified (ICD-10) Adenomatous colon polyp ?D12.6 - Benign neoplasm of colon, unspecified (ICD-10) Psoriasis ?L40.9 - Psoriasis, unspecified (ICD-10) Allergic rhinitis ?J30.9 - Allergic rhinitis, unspecified (ICD-10) Hyperlipidemia ?E78.5 - Hyperlipidemia, unspecified (ICD-10) Diabetic polyneuropathy ?E11.42 - Type 2 diabetes mellitus with diabetic polyneuropathy (ICD-10) Hepatitis B immune ?Z78.9 - Other specified health status (ICD-10) Uterine fibroid ?D25.9 - Leiomyoma of uterus, unspecified (ICD-10) Obstructive sleep apnea ?G47.33 - Obstructive sleep apnea (adult) (pediatric) (ICD-10) Postmenopausal bleeding ?N95.0 - Postmenopausal bleeding (ICD-10) 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) ?C50.912 - Malignant neoplasm of unspecified site of left female breast (ICD-10) Stage 3a chronic kidney disease (CKD) ?N18.31 - Chronic kidney disease, stage 3a (ICD-10) Lobular carcinoma of breast ?C50.919 - Malignant neoplasm of unspecified site of unspecified female breast (ICD-10) Endometrial hyperplasia without atypia, complex (01/17/22) ?N85.01 - Benign endometrial hyperplasia (ICD-10) Diabetes type 2, controlled ?E11.9 - Type 2 diabetes mellitus without complications (ICD-10) SVT (supraventricular tachycardia) ?I47.1 - Supraventricular tachycardia (ICD-10) HTN (hypertension) ?I10 - Essential (primary) hypertension (ICD-10) Sleep apnea ?G47.30 - Sleep apnea, unspecified (ICD-10) Surgical History Status post total abdominal hysterectomy and bilateral salpingo-oophorectomy (09/19/23) ?Z90.710 - Acquired absence of both cervix and uterus (ICD-10) ?Z90.722 - Acquired absence of ovaries, bilateral (ICD-10) ?Z90.79 - Acquired absence of other genital organ(s) (ICD-10) Status post hysteroscopy (06/19/23) ?Z98.890 - Other specified postprocedural states (ICD-10) Status post hysteroscopy (01/17/22) ?Z98.890 - Other specified postprocedural states (ICD-10) H/O cardiac radiofrequency ablation ?Z98.890 - Other specified postprocedural states (ICD-10) History of uterine fibroid ?Z86.018 - Personal history of other benign neoplasm (ICD-10) Status post radiation therapy ?Z92.3 - Personal history of irradiation (ICD-10) S/P lumpectomy, left breast (~08/28/17) ?Z98.890 - Other specified postprocedural states (ICD-10) Family History Father Heart disease Diabetes Liver disease Kidney disease Paternal Grandmother Breast cancer Maternal Grandmother Uterine cancer Social History Narrative: daughter lives with her but smokes outside What is your current living situation?: I presently have a place to live Problems where you live: no known problems In the past 12 months, utilities in danger of being shut off: no In past 12 months, lack of transportation kept you from medical appts, meetings, work, or getting things needed for daily living: no In the past 12 mos, have been you worried that your food would run out before you had money to buy more?: never true In the past 12 mos, the food you bought just didn't last and you didn't have money to buy more?: never true Highest level of school completed/degree received: Bachelor's degree Smoking Status: Never smoker Do you use any of these nicotine containing products: None Second hand tobacco smoke exposure: Yes How often do you have a drink containing alcohol: never How often do you have six or more drinks on one occasion: Never AUDIT-C Alcohol total score: 0 Non-prescribed substance use: denies use Caffeine: Yes Are you now , , , , never or living with a partner: Social isolation score (0-1 are the most socially isolated patients): 0 How often does anyone, including family, friends and others, physically hurt you: never How often does anyone, including family, friends and others, insult or talk down to you: never How often does anyone, including family, friends and others, threaten you with harm: never How often does anyone, including family, friends and others, scream or curse at you: never Do you think of yourself as: straight/heterosexual Gender Identity: female Are you currently sexually active: No Are you using contraception or practicing any form of control: No service: No Exam Const: Vital Signs, click to edit/add: Vital Signs - 24 hr 06/03/24 13:54 Temperature 98.8 F Pulse Rate [Pulse Oximeter] 98 Respiratory Rate 16 Blood Pressure [Ri ght Upper Arm] 135/69 Pulse Oximetry 98 Oxygen Delivery Me thod Room Air Patient is alert, interactive, no apparent distress. Sclera clear, it was sick in complete sentences. Lungs are clear, good air entry. CV regular rate and rhythm, no murmur, normal S1-S2, no S3-S4. She has some dried blood appearing substance along the left 1st toe medial nail fold. There is no fluctuance no significant tenderness, cannot express any fluid. Her nail is cut down her ripped down on that side and is quite short. The nail fold as well as the pad of this toe really are not that tender. Her distal foot is warm, red and swollen, she has concentrated pain over the 1st metatarsophalangeal joint and pain with range of motion there. The erythema does extend out overall the metatarsal heads. Neurovascular is intact. No pain around the ankle, no swelling, no pretibial swelling of this extremity. She has a small erythematous in the right medial calf that is warm, red but do not feel any palpable cord. Documenting provider has reviewed patient's vital signs: yes Course Course ED Course: This is a diabetic patient with an ingrown toenail but does not seem to be infected to me. She certainly has swelling and pain in the foot itself, seems to be concentrated around the metatarsophalangeal joint of the 1st toe, could be gout or other inflammatory arthropathy. It is possible she could have septic joint, secondary infection and cellulitis. Given the calf symptoms, do think we need a venous ultrasound to rule out DVT. We will get x-ray of this foot, full complement of labs looking for inflammatory arthropathy, infectious etiology. Reevaluation(s) Time of Reevaluation #1: 16:54 Reevaluation #1: Have reviewed that her x-ray is not showing any concerning change. Her white count is elevated, C-reactive protein is up. Uric acid is high normal but still within normal limits. Have discussed with her that with her being diabetic, the ingrown toenail certainly could be a source of infection allowing cellulitis in the foot. We have not completely ruled out possible inflammatory arthropathy like gout or pseudogout. We have discussed that prednisone or anti-inflammatories would usually be used to treat these disorders. I certainly do not feel comfortable giving her prednisone when I have a high enough clinical suspicion for infection. She is going to take Tylenol and ibuprofen per bottle directions as needed for symptom control, will initiate 1 g IM Rocephin and start oral antibiotics tomorrow. She understands that she needs to watch this quite closely. She denies any history of MRSA. Vital Signs Vital signs: Initial Vital Signs Temperature 98.8 F 06/03/24 13:54 Temperature Source Oral 06/03/24 13:54 Pulse Rate 98 06/03/24 13:54 Respiratory Rate 16 06/03/24 13:54 Blood Pressure 135/69 06/03/24 13:54 Blood Pressure Mean 91 06/03/24 13:54 Pulse Oximetry 98 06/03/24 13:54 Oxygen Delivery Method Room Air 06/03/24 13:54 Vital Signs Temperature 98.8 F 06/03/24 13:54 Pulse Rate 98 06/03/24 13:54 Respiratory Rate 16 06/03/24 13:54 Blood Pressure 135/69 06/03/24 13:54 Pulse Oximetry 98 06/03/24 13:54 Oxygen Delivery Method Room Air 06/03/24 13:54 Temperature 98.8 F 06/03/24 13:54 Pulse Rate 98 06/03/24 13:54 Respiratory Rate 16 06/03/24 13:54 Blood Pressure 135/69 06/03/24 13:54 Pulse Oximetry 98 06/03/24 13:54 Oxygen Delivery Method Room Air 06/03/24 13:54 Medical Decision Making Lab Data Lab results reviewed: Yes I reviewed the patient's lab results Labs: Lab Results 06/03/24 Range/Units 15:23 WBC 12.61 H (4.50-11.00) K/uL RBC 4.13 (4.00-5.20) m/uL Hgb 11.4 L (12.0-16.0) gm/dL Hct 35.7 (33.0-51.0) % MCV 86 (80-100) fL MCH 28 (26-34) pg MCHC 32 (32-36) gm/dL RDW Coeff of Emilia 13.5 (11.5-15.5) % Plt Count 255 (140-440) K/uL Neut % (Auto) 81.8 H (42.0-72.0) % Lymph % (Auto) 7.0 L (20-44) % [place] % (Auto) 9.2 (0.0-11.0) % Eos % (Auto) 0.9 (0.0-7.0) % Baso % (Auto) 0.2 (0.0-3.0) % Neut # (Auto) 10.30 H (1.7-7.0) K/uL Lymph # (Auto) 0.90 (0.90-2.90) K/uL [place] # (Auto) 1.20 H (0.00-0.90) K/UL Eos # (Auto) 0.10 (0.00-0.50) K/uL Baso # (Auto) 0.00 (0.00-0.30) K/uL Abs Immat Gran (auto) 0.10 (0.00-0.30) K/uL Imm/Tot Granulo (auto) 0.9 % Sodium 136 (135-149) mmol/L Potassium 4.6 (3.6-5.1) mmol/L Chloride 98 (96-114) mmol/L Carbon Dioxide 28 (20-32) mmol/L Anion Gap 10 (7-15) mEq/L BUN 32 H (7-30) mg/dL Creatinine 1.2 (0.5-1.5) mg/dL Estimated Creat Clear 44.92 Estimated GFR 51 ml/min Glucose 158 H (60-115) mg/dL Lactate 1.8 (0.5-1.9) mmol/L Uric Acid 7.7 (2.2-8.4) mg/dL Calcium 9.5 (8.4-10.6) mg/dL C-Reactive Protein 6.8 H (0.5-1.0) mg/dL Procalcitonin 0.16 (<0.50) ng/mL Imaging Data Venous US: Attestation: I have reviewed the pertinent imaging results. Radiologist's impression: Patient: SABI Armstrong NAPLES Facility:?[facility] Patient ID:?[id number] Site Patient ID:?[id number]. Site :?[id number] Study:?US-Extremity Left LEV LT-06/03/2024 3:54:02 PM Ordering Physician:Anjali Gonsales Final Report: INDICATION: Swelling and pain in left calf TECHNIQUE: Ultrasound venous duplex lower left extremity. Compression venous exam was performed using ventura-scale, color Doppler, and spectral Doppler analysis. COMPARISON: None. FINDINGS: Sonographic imaging demonstrates the left common femoral, deep femoral, superficial femoral, popliteal, posterior tibial and greater saphenous and the contralateral right common femoral veins to be fully compressible with normal color Doppler blood flow. IMPRESSION: Normal left lower extremity venous ultrasound, no sign of deep venous thrombosis. Dictated by Cody Valdez MD @ 06/03/2024 4:02:41 PM (Electronic Signature) XR left foot: Attestation: I have reviewed the pertinent imaging results. Radiologist's impression: Patient: SABI STEVENS Facility:?[facility] Patient ID:?[id number] Site Patient ID:?[id number]. Site :?[id number] Study:?XRay-Extremity Left FOOT 3V-06/03/2024 3:40:47 PM Ordering Physician:?Tracy Gonsales Final Report: INDICATION: Pain. TECHNIQUE: Left foot three views. COMPARISON: None. FINDINGS: No acute fracture or dislocation. [id number] degenerative changes greatest in the midfoot. Dorsal and plantar calcaneal enthesophytes. Tibiotalar degenerative changes. Vascular calcifications. Soft tissues elsewhere as imaged are unremarkable. IMPRESSION: No acute osseous abnormality. Dictated by Abelardo Gavin MD @ 06/03/2024 3:49:40 PM (Electronic Signature) Discharge Plan Discharge Clinical Impression: Ingrowing toenail of left foot, Cellulitis of foot, left Patient Disposition: Home, Self-Care Condition: Stable Instructions: Cellulitis (ED), Ingrown Nail (ED) Additional Instructions: Recommend recheck with your primary care provider within the next 1-3 days, contact clinic to get this scheduled. Recommend that you get a Podiatry referral from your primary care provider to further deal with the ingrown toenail given that you are diabetic. Start oral Keflex tomorrow and take as prescribed. If you are worsening, feel that pain is not improving, feel that this infection is increasing her spreading, do recommend re-evaluation. Try to elevate and rest the foot. Can increase activity as tolerated as you feel better. Prescriptions: New cephalexin 500 mg tablet 500 mg PO TID Qty: 21 0RF No Action Jardiance 10 mg tablet 10 mg PO DAILY gabapentin 300 mg capsule 300 mg PO DAILY lisinopril 40 mg tablet 40 mg PO DAILY (DME) pen needle, diabetic [BD Ultra-Fine Arielle Pen Needle] 32 gauge x 5/32 needle See Rx Instructions .ROUTE .MEDSUPPLY Qty: 50 Rx Instructions: As directed insulin aspart U-100 [Novolog FlexPen U-100 Insulin] 100 unit/mL (3 mL) insulin pen 30 unit subcut TID Patient Comments: once/meal, 30u breakfast, 30u lunch, 38u dinner (+ sliding scale with each meal) metformin 500 mg tablet extended release 24 hr 1,000 mg PO BID insulin degludec [Tresiba FlexTouch U-200] 200 unit/mL (3 mL) insulin pen 100 unit subcut QHS hydrochlorothiazide 25 mg tablet 25 mg PO DAILY atorvastatin 40 mg tablet 40 mg PO DAILY metoprolol tartrate 50 mg tablet 50 mg PO Q12H Victoza 3-Caden 0.6 mg/0.1 mL (18 mg/3 mL) pen injector 1.8 mg subcut QHS vitamin B complex [B Complex-Vitamin B12] Tablet 1 tab PO QDAY cholecalciferol (vitamin D3) 10 mcg (400 unit) capsule 10 mcg PO DAILY calcium carbonate-vitamin D3 600 mg-10 mcg (400 unit) capsule 1 cap PO QDAY ascorbate calcium (vitamin C) 500 mg tablet 500 mg PO QDAY aspirin 81 mg tablet,delayed release (DR/EC) 81 mg PO DAILY ibuprofen 600 mg Tablet 600 mg PO Q6H PRN (Reason: Pain) Qty: 30 0RF Follow Up/Referrals: Ibis Chilel MD [Primary Care Provider] - Stand Alone Forms: MyHealth Info Instructions
--- NOTE | 2024-06-03 15:13 | CRLHL7_ITS ---
For Patients: As a result of the Cures Act, medical imaging exams and procedure reports are released immediately into your electronic medical record. You may view this report before your referring provider. If you have questions, please contact your health care provider. INDICATION: Pain. TECHNIQUE: Left foot three views. COMPARISON: None. FINDINGS: No acute fracture or dislocation. [id number]-zl-haleozva degenerative changes greatest in the midfoot. Dorsal and plantar calcaneal enthesophytes. Tibiotalar degenerative changes. Vascular calcifications. Soft tissues elsewhere as imaged are unremarkable. IMPRESSION: No acute osseous abnormality. Dictated by Abelardo Gavin MD @ 06/03/2024 3:49:40 PM (Electronically Signed)
--- NOTE | 2024-06-03 15:15 | CRLHL7_ITS ---
For Patients: As a result of the Century Cures Act, medical imaging exams and procedure reports are released immediately into your electronic medical record. You may view this report before your referring provider. If you have questions, please contact your health care provider. INDICATION: Swelling and pain in left calf TECHNIQUE: Ultrasound venous duplex lower left extremity. Compression venous exam was performed using ventura-scale, color Doppler, and spectral Doppler analysis. COMPARISON: None. FINDINGS: Sonographic imaging demonstrates the left common femoral, deep femoral, superficial femoral, popliteal, posterior tibial and greater saphenous and the contralateral right common femoral veins to be fully compressible with normal color Doppler blood flow. IMPRESSION: Normal left lower extremity venous ultrasound, no sign of deep venous thrombosis. Dictated by Cody Valdez MD @ 06/03/2024 4:02:41 PM (Electronically Signed)
[2024-06-03 15:26] LABS: Lactate* 1.8 mmol/L (0.5-1.9)
[2024-06-03 15:30] LABS: Basophils Percent Auto 0.2 % (0.0-3.0); Eosinophils Percent Auto 0.9 % (0.0-7.0); Hematocrit 35.7 % (33.0-51.0); Hemoglobin* 11.4 gm/dL (12.0-16.0); Immature Granulocytes Pct Auto 0.9 %; Mean Corpuscular HGB Conc 32 gm/dL (32-36); Mean Corpuscular Hemoglobin 28 pg (26-34); Mean Corpuscular Volume 86 fL (80-100); Monocytes Percent Auto 9.2 % (0.0-11.0); Neutrophils Percent Auto 81.8 % (42.0-72.0); Platelet Count* 255 K/uL (140-440); RDW Coefficient of Variation % 13.5 % (11.5-15.5); Red Blood Count 4.13 m/uL (4.00-5.20); White Blood Count* 12.61 K/uL (4.50-11.00)
[2024-06-03 15:33] LABS: Slide Review Reflex No
[2024-06-03 15:44] LABS: Chloride* 98 mmol/L (96-114)
[2024-06-03 15:45] LABS: Potassium* 4.6 mmol/L (3.6-5.1); Sodium* 136 mmol/L (135-149)
[2024-06-03 15:47] LABS: Creatinine* 1.2 mg/dL (0.5-1.5); Est. Creatinine Clearance* 44.92; Estimated Glomerular Filt Rate 51 ml/min
[2024-06-03 15:48] LABS: Anion Gap 10 mEq/L (7-15); Blood Urea Nitrogen* 32 mg/dL (7-30); Carbon Dioxide* 28 mmol/L (20-32); Glucose* 158 mg/dL (60-115); Uric Acid* 7.7 mg/dL (2.2-8.4)
[2024-06-03 15:49] LABS: Calcium* 9.5 mg/dL (8.4-10.6)
[2024-06-03 15:51] LABS: C Reactive Protein* 6.8 mg/dL (0.5-1.0)
[2024-06-03 16:05] LABS: Procalcitonin* 0.16 ng/mL (<0.50)
[2024-06-03] MEDS: LIDOCAINE 1% 5 ml (pf) 5 ML VIAL 2.1 ML IM (17:14)
[2024-06-03] MEDS: cefTRIAXone 1 GM VIAL IM (17:14)
== END 2024-06-03 17:21 | disposition home or self-care (01) ==
PROVIDERS: Emergency Provider Family Medicine; PCP Family Medicine
DX: L60.0 Ingrowing nail (principal); L03.116 Cellulitis of left lower limb
CPT/HCPCS: 36415; 73630; 80048; 83605; 84145; 84550; 85025; 86140; 93971; 96372; 99283; 99284; J0696

== ENCOUNTER 2024-06-06 09:52 | Emergency (ER) | payer BC, SELFPAY ==
--- NOTE | 2024-06-06 10:03 | ED_ITS ---
HPI - General Adult General Time Seen by Provider: 10:03 Date Seen: 06/06/24 Chief complaint: Extremity Pain/Injury, Lower Stated complaint: Foot infection/swelling Time Seen by Provider: 06/06/24 10:03 Source: patient, RN notes reviewed and old records reviewed Mode of arrival: ambulatory Limitations: no limitations History of Present Illness HPI narrative: 63-year-old female who presents today with concern for foot infection. Patient was seen a couple of days ago for this, was prescribed Keflex, followed up primary care today who was sent to the emergency department due to concern for continued infection. Patient says her pain is improved, appearance has not changed much. She denies fevers since her initial visit, nausea, vomiting. Taking medications as prescribed. Related Data Home Medications ?Medication ?Instructions ?Recorded ?Confirmed atorvastatin 40 mg tablet 40 mg PO DAILY 05/11/22 10/30/23 cholecalciferol (vitamin D3) 10 10 mcg PO DAILY 05/11/22 10/30/23 mcg (400 unit) capsule hydrochlorothiazide 25 mg tablet 25 mg PO DAILY 05/11/22 10/30/23 insulin aspart U-100 100 unit/mL 30 unit subcut TID 05/11/22 10/30/23 (3 mL) subcutaneous pen (Novolog FlexPen U-100 Insulin aspart) insulin degludec 200 unit/mL (3 100 unit subcut QHS 05/11/22 10/30/23 mL) subcutaneous pen (Tresiba FlexTouch U-200 insulin) liraglutide 0.6 mg/0.1 mL (18 mg/3 1.8 mg subcut QHS 05/11/22 10/30/23 mL) subcutaneous pen injector (Victoza 3-Caden) lisinopril 40 mg tablet 40 mg PO DAILY 05/11/22 10/30/23 metformin 500 mg tablet,extended 1,000 mg PO BID 05/11/22 10/30/23 release 24 hr metoprolol tartrate 50 mg tablet 50 mg PO Q12H 05/11/22 10/30/23 pen needle, diabetic 32 gauge x #50 ea 05/11/22 10/30/23 (BD Ultra-Fine Arielle Pen Needle) vitamin B complex (B 1 tab PO QDAY 05/11/22 10/30/23 Complex-Vitamin B12 tablet) empagliflozin 10 mg tablet 10 mg PO DAILY 09/19/22 10/30/23 (Jardiance) gabapentin 300 mg capsule 300 mg PO DAILY 02/08/23 10/30/23 aspirin 81 mg tablet,delayed 81 mg PO DAILY 09/18/23 10/30/23 release ascorbate calcium (vitamin C) 500 500 mg PO QDAY 09/26/23 10/30/23 mg tablet calcium 600 mg (as 1 cap PO QDAY 10/03/23 10/30/23 carbonate)-vitamin D3 10 mcg (400 unit) capsule Previous Rx's ?Medication ?Instructions ?Recorded ibuprofen 600 mg tablet 600 mg PO Q6H PRN Pain #30 tabs 09/20/23 cephalexin 500 mg tablet 500 mg PO TID #21 tabs 06/03/24 levofloxacin 750 mg tablet 750 mg PO DAILY #7 tabs 06/06/24 Allergies Allergy/AdvReac Type Severity Reaction Status Date / Time No Known Drug Allergies Allergy Verified 10/30/23 08:51 PFSH [facility] Medical History Restless leg syndrome ?G25.81 - Restless legs syndrome (ICD-10) Microalbuminuria ?R80.9 - Proteinuria, unspecified (ICD-10) Adenomatous colon polyp ?D12.6 - Benign neoplasm of colon, unspecified (ICD-10) Psoriasis ?L40.9 - Psoriasis, unspecified (ICD-10) Allergic rhinitis ?J30.9 - Allergic rhinitis, unspecified (ICD-10) Hyperlipidemia ?E78.5 - Hyperlipidemia, unspecified (ICD-10) Diabetic polyneuropathy ?E11.42 - Type 2 diabetes mellitus with diabetic polyneuropathy (ICD-10) Hepatitis B immune ?Z78.9 - Other specified health status (ICD-10) Uterine fibroid ?D25.9 - Leiomyoma of uterus, unspecified (ICD-10) Obstructive sleep apnea ?G47.33 - Obstructive sleep apnea (adult) (pediatric) (ICD-10) Postmenopausal bleeding ?N95.0 - Postmenopausal bleeding (ICD-10) 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) ?C50.912 - Malignant neoplasm of unspecified site of left female breast (ICD- 10) Stage 3a chronic kidney disease (CKD) ?N18.31 - Chronic kidney disease, stage 3a (ICD-10) Lobular carcinoma of breast ?C50.919 - Malignant neoplasm of unspecified site of unspecified female breast (ICD-10) Endometrial hyperplasia without atypia, complex (01/17/22) ?N85.01 - Benign endometrial hyperplasia (ICD-10) Diabetes type 2, controlled ?E11.9 - Type 2 diabetes mellitus without complications (ICD-10) SVT (supraventricular tachycardia) ?I47.1 - Supraventricular tachycardia (ICD-10) HTN (hypertension) ?I10 - Essential (primary) hypertension (ICD-10) Sleep apnea ?G47.30 - Sleep apnea, unspecified (ICD-10) Surgical History Status post total abdominal hysterectomy and bilateral salpingo-oophorectomy (09/19/23) ?Z90.710 - Acquired absence of both cervix and uterus (ICD-10) ?Z90.722 - Acquired absence of ovaries, bilateral (ICD-10) ?Z90.79 - Acquired absence of other genital organ(s) (ICD-10) Status post hysteroscopy (06/19/23) ?Z98.890 - Other specified postprocedural states (ICD-10) Status post hysteroscopy (01/17/22) ?Z98.890 - Other specified postprocedural states (ICD-10) H/O cardiac radiofrequency ablation ?Z98.890 - Other specified postprocedural states (ICD-10) History of uterine fibroid ?Z86.018 - Personal history of other benign neoplasm (ICD-10) Status post radiation therapy ?Z92.3 - Personal history of irradiation (ICD-10) S/P lumpectomy, left breast (~08/28/17) ?Z98.890 - Other specified postprocedural states (ICD-10) Family History Father Heart disease Diabetes Liver disease Kidney disease Paternal Grandmother Breast cancer Maternal Grandmother Uterine cancer Social History Narrative: daughter lives with her but smokes outside What is your current living situation?: I presently have a place to live Problems where you live: no known problems In the past 12 months, utilities in danger of being shut off: no In past 12 months, lack of transportation kept you from medical appts, meetings, work, or getting things needed for daily living: no In the past 12 mos, have been you worried that your food would run out before you had money to buy more?: never true In the past 12 mos, the food you bought just didn't last and you didn't have money to buy more?: never true Highest level of school completed/degree received: Bachelor's degree Smoking Status: Never smoker Do you use any of these nicotine containing products: None Second hand tobacco smoke exposure: Yes How often do you have a drink containing alcohol: never How often do you have six or more drinks on one occasion: Never AUDIT-C Alcohol total score: 0 Non-prescribed substance use: denies use Caffeine: Yes Are you now , , , , never or living with a partner: Social isolation score (0-1 are the most socially isolated patients): 0 How often does anyone, including family, friends and others, physically hurt you : never How often does anyone, including family, friends and others, insult or talk down to you: never How often does anyone, including family, friends and others, threaten you with harm: never How often does anyone, including family, friends and others, scream or curse at you: never Do you think of yourself as: straight/heterosexual Gender Identity: female Are you currently sexually active: No Are you using contraception or practicing any form of control: No service: No Exam Narrative: Exam Narrative: General: Well-developed and well-nourished, no acute distress Head: Atraumatic and normocephalic Eyes: Pupils are equal reactive, extraocular motions intact, conjunctiva clear ENT: External nose and ears are normal, posterior pharynx without erythema or exudate Neck: No midline cervical tenderness, full spontaneous range of motion the neck, trachea midline, no adenopathy Heart: Regular rate and rhythm no murmurs or thrills Lungs: Clear to auscultation bilaterally without wheezes or crackles Abdomen: Soft, nontender, nondistended with active bowel sounds Musculoskeletal: No tenderness, deformity, or edema Neurologic: Awake, alert, and oriented x3, no gross focal neurologic deficits, cranial nerves intact as tested Psych: Mood and affect are appropriate Skin: Swelling of the left foot, ankle, lower leg with erythema of same area, swelling and some crusting along the nail border of the left great toe, also some blanching in tenderness between the 1st and 2nd toe pain Const: Vital Signs, click to edit/add: Vital Signs - 24 hr 06/06/24 10:13 Temperature 98.1 F Pulse Rate [Pulse Oximeter] 83 Respiratory Rate 18 Blood Pressure [Ri ght Upper Arm] 138/70 Pulse Oximetry 98 Oxygen Delivery Me thod Room Air Course Course ED Course: Patient seen and examined, reviewed most recent emergency department visit from June 03 which was for lower extremity swelling in concern for toe infection. At that time patient noted to have distal foot that is red and swollen with pain over the 1st metatarsal pharyngeal joint it erythema extending over the metatarsal heads. X-ray was negative, white blood cell count elevated with elevated CRP at that time, was given Rocephin in the emergency department and discharged with single coverage with Keflex. Also reviewed clinic visit today when patient was noted to have continued redness in concern for abscess in the foot. Reevaluation(s) Time of Reevaluation #1: 12:48 Reevaluation #1: Labs and bili interpreted by me with normal white blood cell count improved from prior, CRP 7.1 which is slightly increased from prior. MRI demonstrates cellulitis with intermetatarsal bursitis the 1st interspace but no other localized fluid collection. Will discuss with Podiatry. Time of Reevaluation #2: 12:58 Reevaluation #2: Care discussed with Podiatry Dr. Venegas, feels the patient can continue antibiotic treatment, recommend CAM boot and outpatient follow-up next week. Updated patient with findings and plan, she is agreeable to discharge with outpatient follow-up. Vital Signs Vital signs: Initial Vital Signs Temperature 98.1 F 06/06/24 10:13 Temperature Source Temporal Artery Scan 06/06/24 10:13 Pulse Rate 83 06/06/24 10:13 Pulse Strength 0+ Absent 06/06/24 10:13 Respiratory Rate 18 06/06/24 10:13 Blood Pressure 138/70 06/06/24 10:13 Blood Pressure Mean 92 06/06/24 10:13 Blood Pressure Position Supine 06/06/24 10:13 Pulse Oximetry 98 06/06/24 10:13 Oxygen Delivery Method Room Air 06/06/24 10:13 Vital Signs Temperature 98.1 F 06/06/24 10:13 Pulse Rate 83 06/06/24 10:13 Respiratory Rate 18 06/06/24 10:13 Blood Pressure 138/70 06/06/24 10:13 Pulse Oximetry 98 06/06/24 10:13 Oxygen Delivery Method Room Air 06/06/24 10:13 Temperature 98.1 F 06/06/24 10:13 Pulse Rate 83 06/06/24 10:13 Respiratory Rate 18 06/06/24 10:13 Blood Pressure 138/70 06/06/24 10:13 Pulse Oximetry 98 06/06/24 10:13 Oxygen Delivery Method Room Air 06/06/24 10:13 Medical Decision Making Lab Data Labs: Lab Results 06/06/24 Range/Units 10:40 WBC 6.13 (4.50-11.00) K/uL RBC 3.97 L (4.00-5.20) m/uL Hgb 10.9 L (12.0-16.0) gm/dL Hct 34.3 (33.0-51.0) % MCV 86 (80-100) fL MCH 28 (26-34) pg MCHC 32 (32-36) gm/dL RDW Coeff of Emilia 13.7 (11.5-15.5) % Plt Count 275 (140-440) K/uL Neut % (Auto) 72.3 H (42.0-72.0) % Lymph % (Auto) 12.1 L (20-44) % [place] % (Auto) 11.1 H (0.0-11.0) % Eos % (Auto) 3.9 (0.0-7.0) % Baso % (Auto) 0.3 (0.0-3.0) % Neut # (Auto) 4.40 (1.7-7.0) K/uL Lymph # (Auto) 0.70 L (0.90-2.90) K/uL [place] # (Auto) 0.70 (0.00-0.90) K/UL Eos # (Auto) 0.24 (0.00-0.50) K/uL Baso # (Auto) 0.02 (0.00-0.30) K/uL Abs Immat Gran (auto) 0.02 (0.00-0.30) K/uL Imm/Tot Granulo (auto) 0.3 % Sodium 137 (135-149) mmol/L Potassium 4.6 (3.6-5.1) mmol/L Chloride 103 (96-114) mmol/L Carbon Dioxide 24 (20-32) mmol/L Anion Gap 10 (7-15) mEq/L BUN 38 H (7-30) mg/dL Creatinine 1.2 (0.5-1.5) mg/dL Estimated Creat Clear 44.92 Estimated GFR 51 ml/min Glucose 167 H (60-115) mg/dL Calcium 9.2 (8.4-10.6) mg/dL C-Reactive Protein 7.1 H (0.5-1.0) mg/dL Discharge Plan Discharge Clinical Impression: Cellulitis of foot, left, Intermetatarsal bursitis Patient Disposition: Home, Self-Care Condition: Stable Instructions: Cellulitis (ED) Additional Instructions: Continue Keflex, add Levaquin Wear walking boot for comfort Call podiatry for a follow-up appointment Discharge Diet: Regular Prescriptions: New levofloxacin 750 mg tablet 750 mg PO DAILY Qty: 7 0RF No Action Jardiance 10 mg tablet 10 mg PO DAILY gabapentin 300 mg capsule 300 mg PO DAILY lisinopril 40 mg tablet 40 mg PO DAILY (DME) pen needle, diabetic [BD Ultra-Fine Arielle Pen Needle] 32 gauge x 5/32 needle See Rx Instructions .ROUTE .MEDSUPPLY Qty: 50 Rx Instructions: As directed insulin aspart U-100 [Novolog FlexPen U-100 Insulin] 100 unit/mL (3 mL) insulin pen 30 unit subcut TID Patient Comments: once/meal, 30u breakfast, 30u lunch, 38u dinner (+ sliding scale with each meal) metformin 500 mg tablet extended release 24 hr 1,000 mg PO BID insulin degludec [Tresiba FlexTouch U-200] 200 unit/mL (3 mL) insulin pen 100 unit subcut QHS hydrochlorothiazide 25 mg tablet 25 mg PO DAILY atorvastatin 40 mg tablet 40 mg PO DAILY metoprolol tartrate 50 mg tablet 50 mg PO Q12H Victoza 3-Caden 0.6 mg/0.1 mL (18 mg/3 mL) pen injector 1.8 mg subcut QHS vitamin B complex [B Complex-Vitamin B12] Tablet 1 tab PO QDAY cholecalciferol (vitamin D3) 10 mcg (400 unit) capsule 10 mcg PO DAILY calcium carbonate-vitamin D3 600 mg-10 mcg (400 unit) capsule 1 cap PO QDAY ascorbate calcium (vitamin C) 500 mg tablet 500 mg PO QDAY aspirin 81 mg tablet,delayed release (DR/EC) 81 mg PO DAILY ibuprofen 600 mg Tablet 600 mg PO Q6H PRN (Reason: Pain) Qty: 30 0RF cephalexin 500 mg tablet 500 mg PO TID Qty: 21 0RF Follow Up/Referrals: Ibis Chilel MD [Primary Care Provider] - Stand Alone Forms: [email or web address] Info Instructions
[2024-06-06 10:13] VITALS: BP 138/70; PULSE 83; RESP 18; TEMP 36.7; O2SAT 98; BMI 33.1
--- NOTE | 2024-06-06 10:34 | CRLHL7_ITS ---
For Patients: As a result of the Century Cures Act, medical imaging exams and procedure reports are released immediately into your electronic medical record. You may view this report before your referring provider. If you have questions, please contact your health care provider. INDICATION: Redness involving the distal left foot. Concern for osteomyelitis. TECHNIQUE: Noncontrast and contrast-enhanced MRI of the left forefoot. Axial, sagittal and coronal T1, stir, pre contrast T1 fat sat and postcontrast T1 images with fat saturation were acquired. 1.5 josefina MRI scanner. COMPARISON: Radiographs from 06/01/2024. FINDINGS: There are areas of increased soft tissue enhancement involving the foot compatible with cellulitis. There is increased fluid within the intermetatarsal bursa of the 1st interspace compatible with bursitis. Small amount of fluid within the intermetatarsal bursa of the 3rd interspace. No localized fluid collections otherwise. There is no confluent effacement of fatty marrow to suggest osteomyelitis of the left forefoot. Small 1st MTP joint effusion. Small focus of subchondral bone marrow edema involving the plantar aspect of the 1st metatarsal head likely relates to grade 4 chondromalacia. Small nonspecific 2nd MTP joint effusion. Mild reactive periarticular bone marrow edema. Third through 5th MTP joints are maintained. Interphalangeal joints of the toes are maintained. There are advanced degenerative changes involving the midfoot-forefoot junction. Bone marrow edema within the 2nd cuneiform bone and within the 2nd and 3rd metatarsal bones is likely degenerative. There is a fracture of the plantar aspect of the 2nd metatarsal base as noted on sagittal T1 image number 12 of series 7, likely not acute. The Lisfranc ligament is abnormal with degeneration and partial tearing. Denervation changes are noted involving foot musculature. IMPRESSION: 1. Areas of increased soft tissue enhancement compatible with cellulitis. 2. Intermetatarsal bursitis of the 1st interspace. No localized fluid collection otherwise. 3. No osteomyelitis. 4. Nonspecific small 1st and 2nd MTP joint effusions. Focus of subchondral bone marrow edema involving the plantar aspect of the 1st metatarsal head is degenerative. Mild reactive periarticular bone edema about the 2nd MTP joint. 5. Advanced degenerative changes at the midfoot-forefoot junction. Fracture of the plantar aspect of the base of the 2nd metatarsal bone is likely nonacute. Degeneration and partial tearing of the Lisfranc ligament complex. Dictated by Toan Mcdonald MD @ 06/06/2024 12:15:55 PM Dictated by: Toan Mcdonald MD @ 06/06/2024 12:16:04 (Electronically Signed)
[2024-06-06 10:48] LABS: Basophils Absolute Auto 0.02 K/uL (0.00-0.30); Basophils Percent Auto 0.3 % (0.0-3.0); Eosinophils Absolute Auto 0.24 K/uL (0.00-0.50); Eosinophils Percent Auto 3.9 % (0.0-7.0); Hematocrit 34.3 % (33.0-51.0); Hemoglobin* 10.9 gm/dL (12.0-16.0); Immature Granulocytes Abs Auto 0.02 K/uL (0.00-0.30); Immature Granulocytes Pct Auto 0.3 %; Lymphocytes Percent Auto 12.1 % (20-44); Mean Corpuscular HGB Conc 32 gm/dL (32-36); Mean Corpuscular Hemoglobin 28 pg (26-34); Mean Corpuscular Volume 86 fL (80-100); Monocytes Percent Auto 11.1 % (0.0-11.0); Neutrophils Percent Auto 72.3 % (42.0-72.0); Platelet Count* 275 K/uL (140-440); RDW Coefficient of Variation % 13.7 % (11.5-15.5); Red Blood Count 3.97 m/uL (4.00-5.20); White Blood Count* 6.13 K/uL (4.50-11.00)
[2024-06-06 10:54] LABS: Slide Review Reflex No
[2024-06-06 11:07] LABS: Chloride* 103 mmol/L (96-114); Sodium* 137 mmol/L (135-149)
[2024-06-06 11:08] LABS: Potassium* 4.6 mmol/L (3.6-5.1)
[2024-06-06 11:10] LABS: Creatinine* 1.2 mg/dL (0.5-1.5); Est. Creatinine Clearance* 44.92; Estimated Glomerular Filt Rate 51 ml/min
[2024-06-06 11:11] LABS: Anion Gap 10 mEq/L (7-15); Blood Urea Nitrogen* 38 mg/dL (7-30); Carbon Dioxide* 24 mmol/L (20-32); Glucose* 167 mg/dL (60-115)
[2024-06-06 11:12] LABS: Calcium* 9.2 mg/dL (8.4-10.6)
[2024-06-06 11:14] LABS: C Reactive Protein* 7.1 mg/dL (0.5-1.0)
== END 2024-06-06 13:27 | disposition home or self-care (01) ==
PROVIDERS: Emergency Provider Family Medicine; PCP Family Medicine
DX: L03.116 Cellulitis of left lower limb (principal); M77.52 Other enthesopathy of left foot and ankle
CPT/HCPCS: 36415; 73720; 80048; 85025; 86140; 99284; 99285; A9575

== ENCOUNTER 2024-10-22 14:00 | Outpatient (RCR) | payer BC, SELFPAY | END 2025-02-19 23:59 | disposition home or self-care (01) | PROVIDERS: PCP Family Medicine; Visit Provider Family Medicine | DX: N39.46 Mixed incontinence (principal); R35.0 Frequency of micturition; K59.00 Constipation, unspecified; I10 Essential (primary) hypertension; E11.9 Type 2 diabetes mellitus without complications; Z90.710 Acquired absence of both cervix and uterus; Z51.89 Encounter for other specified aftercare ==

== ENCOUNTER 2024-11-05 15:00 | Outpatient (RCR) | payer BC, SELFPAY | END 2025-03-05 23:59 | disposition home or self-care (01) | PROVIDERS: PCP Family Medicine; Visit Provider Family Medicine | DX: N39.46 Mixed incontinence (principal); M25.561 Pain in right knee; G89.29 Other chronic pain; R26.9 Unspecified abnormalities of gait and mobility; R42 Dizziness and giddiness; K59.00 Constipation, unspecified; Z51.89 Encounter for other specified aftercare | CPT/HCPCS: 97110; 97112; 97140; 97162; 97530; 97535 ==

== ENCOUNTER 2025-02-02 09:30 | Outpatient (RCR) | payer BC, SELFPAY | END 2025-06-02 23:59 | disposition home or self-care (01) | PROVIDERS: PCP Family Medicine; Visit Provider Family Medicine | DX: R26.9 Unspecified abnormalities of gait and mobility (principal); R42 Dizziness and giddiness; Z51.89 Encounter for other specified aftercare | CPT/HCPCS: 97110; 97112; 97140; 97162 ==

== ENCOUNTER 2025-05-27 23:11 | Emergency (ER) | payer BC, SELFPAY ==
[2025-05-27 23:13] VITALS: BP 129/79; PULSE 101; RESP 16; TEMP 36.7; O2SAT 97; BMI 33.9
--- NOTE | 2025-05-27 23:27 | ED.GENADULT ---
HPI - General Adult General Date Seen: 05/27/25 Chief complaint: Nausea/Vomiting Stated complaint: vomiting/diabetic Time Seen by Provider: 05/27/25 23:21 Source: patient Mode of arrival: ambulatory Limitations: no limitations History of Present Illness HPI narrative: Patient is a 64-year-old female presenting to emergency department for nausea and vomiting. She states symptoms started this morning and she did take a dose of Zofran which helped. Has not taken any for the Zofran since 10:30 and feels like the nausea is getting worse. She has vomited multiple times because of this. Has tried to eat and drink but vomits whenever she does. Does still have more Zofran at home but has not used any further after the initial dose this morning. States she had similar symptoms 2 weeks ago and she saw her primary care provider. Was given fluids and Zofran was feeling better. Was discharged home was doing well up until today. Patient is wondering if he could related to her new medication. Was recently started on Trulicity a couple weeks ago and had her dose up at a couple days ago. Denies fevers, chills, abdominal pain, headache, lightheadedness, dizziness, weakness, numbness, chest pain, shortness of breath, dysuria. No other concerns noted at this time. Related Data Home Medications ?Medication ?Instructions ?Recorded ?Confirmed atorvastatin 40 mg tablet 40 mg PO DAILY 05/11/22 05/27/25 cholecalciferol (vitamin D3) 10 10 mcg PO DAILY 05/11/22 05/27/25 mcg (400 unit) capsule hydrochlorothiazide 25 mg tablet 25 mg PO DAILY 05/11/22 05/27/25 insulin aspart U-100 100 unit/mL 30 unit subcut TID 05/11/22 05/27/25 (3 mL) subcutaneous pen (Novolog FlexPen U-100 Insulin aspart) insulin degludec 200 unit/mL (3 100 unit subcut QHS 05/11/22 05/27/25 mL) subcutaneous pen (Tresiba FlexTouch U-200 insulin) liraglutide 0.6 mg/0.1 mL (18 mg/3 1.8 mg subcut QHS 05/11/22 05/27/25 mL) subcutaneous pen injector (Victoza 3-Caden) lisinopril 40 mg tablet 40 mg PO DAILY 05/11/22 05/27/25 metformin 500 mg tablet,extended 1,000 mg PO BID 05/11/22 05/27/25 release 24 hr metoprolol tartrate 50 mg tablet 50 mg PO Q12H 05/11/22 05/27/25 pen needle, diabetic 32 gauge x #50 ea 05/11/22 10/30/23 (BD Ultra-Fine Arielle Pen Needle) vitamin B complex (B 1 tab PO QDAY 05/11/22 05/27/25 Complex-Vitamin B12 tablet) empagliflozin 10 mg tablet 10 mg PO DAILY 09/19/22 05/27/25 (Jardiance) gabapentin 300 mg capsule 300 mg PO DAILY 02/08/23 05/27/25 aspirin 81 mg tablet,delayed 81 mg PO DAILY 09/18/23 05/27/25 release ascorbate calcium (vitamin C) 500 500 mg PO QDAY 09/26/23 05/27/25 mg tablet calcium 600 mg (as 1 cap PO QDAY 10/03/23 05/27/25 carbonate)-vitamin D3 10 mcg (400 unit) capsule amlodipine 10 mg tablet 10 mg PO DAILY 05/27/25 05/27/25 Previous Rx's ?Medication ?Instructions ?Recorded ibuprofen 600 mg tablet 600 mg PO Q6H PRN Pain #30 tabs 09/20/23 Allergies Allergy/AdvReac Type Severity Reaction Status Date / Time No Known Drug Allergies Allergy Verified 05/27/25 23:19 Review of Systems Status of ROS: Reports: 10 or more systems reviewed and unremarkable except as noted in History and below [facility] Medical History Status post radiation therapy ?Z92.3 - Personal history of irradiation (ICD-10) Restless leg syndrome ?G25.81 - Restless legs syndrome (ICD-10) Microalbuminuria ?R80.9 - Proteinuria, unspecified (ICD-10) Adenomatous colon polyp ?D12.6 - Benign neoplasm of colon, unspecified (ICD-10) Psoriasis ?L40.9 - Psoriasis, unspecified (ICD-10) Allergic rhinitis ?J30.9 - Allergic rhinitis, unspecified (ICD-10) Hyperlipidemia ?E78.5 - Hyperlipidemia, unspecified (ICD-10) Diabetic polyneuropathy ?E11.42 - Type 2 diabetes mellitus with diabetic polyneuropathy (ICD-10) Hepatitis B immune ?Z78.9 - Other specified health status (ICD-10) Uterine fibroid ?D25.9 - Leiomyoma of uterus, unspecified (ICD-10) Obstructive sleep apnea ?G47.33 - Obstructive sleep apnea (adult) (pediatric) (ICD-10) Postmenopausal bleeding ?N95.0 - Postmenopausal bleeding (ICD-10) 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) ?C50.912 - Malignant neoplasm of unspecified site of left female breast (ICD-10) Stage 3a chronic kidney disease (CKD) ?N18.31 - Chronic kidney disease, stage 3a (ICD-10) Lobular carcinoma of breast ?C50.919 - Malignant neoplasm of unspecified site of unspecified female breast (ICD-10) Endometrial hyperplasia without atypia, complex (01/17/22) ?N85.01 - Benign endometrial hyperplasia (ICD-10) Diabetes type 2, controlled ?E11.9 - Type 2 diabetes mellitus without complications (ICD-10) SVT (supraventricular tachycardia) ?I47.1 - Supraventricular tachycardia (ICD-10) HTN (hypertension) ?I10 - Essential (primary) hypertension (ICD-10) Sleep apnea ?G47.30 - Sleep apnea, unspecified (ICD-10) Surgical History Status post total abdominal hysterectomy and bilateral salpingo-oophorectomy (09/19/23) ?Z90.710 - Acquired absence of both cervix and uterus (ICD-10) ?Z90.722 - Acquired absence of ovaries, bilateral (ICD-10) ?Z90.79 - Acquired absence of other genital organ(s) (ICD-10) Status post hysteroscopy (06/19/23) ?Z98.890 - Other specified postprocedural states (ICD-10) Status post hysteroscopy (01/17/22) ?Z98.890 - Other specified postprocedural states (ICD-10) H/O cardiac radiofrequency ablation ?Z98.890 - Other specified postprocedural states (ICD-10) History of uterine fibroid ?Z86.018 - Personal history of other benign neoplasm (ICD-10) S/P lumpectomy, left breast (~08/28/17) ?Z98.890 - Other specified postprocedural states (ICD-10) Family History Father Heart disease Diabetes Liver disease Kidney disease Paternal Grandmother Breast cancer Maternal Grandmother Uterine cancer Social History Narrative: daughter lives with her but smokes outside What is your current living situation?: I presently have a place to live Problems where you live: no known problems In the past 12 months, utilities in danger of being shut off: no In past 12 months, lack of transportation kept you from medical appts, meetings, work, or getting things needed for daily living: no In the past 12 mos, have been you worried that your food would run out before you had money to buy more?: never true In the past 12 mos, the food you bought just didn't last and you didn't have money to buy more?: never true Highest level of school completed/degree received: Bachelor's degree Smoking Status: Never smoker Do you use any of these nicotine containing products: None Second hand tobacco smoke exposure: Yes How often do you have a drink containing alcohol: never How often do you have six or more drinks on one occasion: Never AUDIT-C Alcohol total score: 0 Non-prescribed substance use: denies use Caffeine: Yes Are you now , , , , never or living with a partner: Social isolation score (0-1 are the most socially isolated patients): 0 How often does anyone, including family, friends and others, physically hurt you: never How often does anyone, including family, friends and others, insult or talk down to you: never How often does anyone, including family, friends and others, threaten you with harm: never How often does anyone, including family, friends and others, scream or curse at you: never Do you think of yourself as: straight/heterosexual Gender Identity: female Are you currently sexually active: No Are you using contraception or practicing any form of control: No service: No Exam Narrative: Exam Narrative: Const: Well-nourished, Well-developed, in mild distress Eyes: PERRL, no conjunctival injection, and symmetrical lids HENT: Atraumatic external nose and ears. Moist mucous membranes. Neck: Symmetric, trachea midline, No thyromegaly. CVS: RRR, No murmurs or gallops. Peripheral pulses 2+ and equal in all extremities RESP: Unlabored respiratory effort. Clear to auscultation bilaterally. GI: Nontender/Nondistended, No rebound or guarding. MSK:Extremities w/o deformity, Normal Active ROM Skin: Warm, Dry. No rashes or lesions. Neuro: Normal Muscle tone, No focal neurological deficits. Psych: Awake, Alert, & Oriented x3. Appropriate mood and affect. Const: Vital Signs, click to edit/add: Vital Signs - 24 hr 05/27/25 23:13 Temperature 98.1 F Pulse Rate [Pulse Oximeter] 101 H Respiratory Rate 16 Blood Pressure [Ri ght Upper Arm] 129/79 Pulse Oximetry 97 Course Vital Signs Vital signs: Initial Vital Signs Temperature 98.1 F 05/27/25 23:13 Temperature Source Temporal Artery Scan 05/27/25 23:13 Pulse Rate 101 H 05/27/25 23:13 Respiratory Rate 16 05/27/25 23:13 Blood Pressure 129/79 05/27/25 23:13 Blood Pressure Mean 95 05/27/25 23:13 Pulse Oximetry 97 05/27/25 23:13 Vital Signs Temperature 98.1 F 05/27/25 23:13 Pulse Rate 101 H 05/27/25 23:13 Respiratory Rate 16 05/27/25 23:13 Blood Pressure 129/79 05/27/25 23:13 Pulse Oximetry 97 05/27/25 23:13 Temperature 98.1 F 05/27/25 23:13 Pulse Rate 101 H 05/27/25 23:13 Respiratory Rate 16 05/27/25 23:13 Blood Pressure 129/79 05/27/25 23:13 Pulse Oximetry 97 05/27/25 23:13 Medications Administered Medications: Generic Name Dose Route Start Last Admin Trade Name Freq PRN Reason Stop Dose Admin Lactated Ringer's 1,000 mls @ 1,000 mls/hr 05/27/25 23:26 05/27/25 23:45 Lactated Ringers 1000 Ml IV 05/28/25 00:25 1,000 mls/hr .Q1H ONE Administration Discontinued Medications Generic Name Dose Route Start Last Admin Trade Name Rubens PRN Reason Stop Dose Admin Ondansetron HCl 4 mg 05/27/25 23:26 05/27/25 23:45 Ondansetron 2 Mg/Ml Inj IVP 05/27/25 23:27 4 mg ONCE ONE Administration Medical Decision Making MDM Narrative Medical decision making narrative: Patient is a 64-year-old female presenting to the emergency department for nausea and vomiting. This very well could be related to her medications but I will do a CBC and BMP to make sure lab work and electrolytes are normal. Will also want to make sure she is not having any signs of acute kidney injury from dehydration due to her vomiting. Zofran given for nausea and a L of fluids given for her dehydration. She is not having any abdominal pain and I do not believe abdominal imaging is necessary. Her blood sugar monitor shows her blood sugars currently 87. Point of care blood sugar was 70. She was given some juice to drink which she was able to drink after the Zofran was given. She is feeling better after the Zofran. She does feel like she would be feeling well enough to go home after the fluids are finished. Patient's lab work shows no concerning abnormalities. She is safe for discharge. Lab Data Labs: Lab Results 05/27/25 05/27/25 Range/Units 23:40 23:42 WBC 10.43 (4.50-11.00) K/uL RBC 4.73 (4.00-5.20) m/uL Hgb 12.7 (12.0-16.0) gm/dL Hct 40.3 (33.0-51.0) % MCV 85 (80-100) fL MCH 27 (26-34) pg MCHC 32 (32-36) gm/dL RDW Coeff of Emilia 14.0 (11.5-15.5) % Plt Count 336 (140-440) K/uL Neut % (Auto) 83.4 H (42.0-72.0) % Lymph % (Auto) 7.0 L (20-44) % Doddridge % (Auto) 7.6 (0.0-11.0) % Eos % (Auto) 1.7 (0.0-7.0) % Baso % (Auto) 0.1 (0.0-3.0) % Neut # (Auto) 8.70 H (1.7-7.0) K/uL Lymph # (Auto) 0.70 L (0.90-2.90) K/uL Doddridge # (Auto) 0.80 (0.00-0.90) K/UL Eos # (Auto) 0.18 (0.00-0.50) K/uL Baso # (Auto) 0.01 (0.00-0.30) K/uL Abs Immat Gran (auto) 0.02 (0.00-0.30) K/uL Imm/Tot Granulo (auto) 0.2 % Sodium 142 (135-149) mmol/L Potassium 4.1 (3.6-5.1) mmol/L Chloride 103 (96-114) mmol/L Carbon Dioxide 29 (20-32) mmol/L Anion Gap 10 (7-15) mEq/L BUN 39 H (7-30) mg/dL Creatinine 1.5 (0.5-1.5) mg/dL Estimated Creat Clear 35.47 Estimated GFR 39 ml/min Glucose 76 (60-115) mg/dL Calcium 9.7 (8.4-10.6) mg/dL Magnesium 2.0 (1.5-2.6) mg/dL POC Glucose 70 (60-115) mg/dl Discharge Plan Discharge Clinical Impression: Nausea Patient Disposition: Home, Self-Care Condition: Improved Instructions: Acute Nausea and Vomiting (ED) Additional Instructions: Continue to take your Zofran at home. Do recommend close follow-up with your primary care provider about these episodes of nausea and vomiting. Return to emergency department for new or worsening symptoms. Prescriptions: No Action Jardiance 10 mg tablet 10 mg PO DAILY gabapentin 300 mg capsule 300 mg PO DAILY lisinopril 40 mg tablet 40 mg PO DAILY (DME) pen needle, diabetic [BD Ultra-Fine Arielle Pen Needle] 32 gauge x 5/32 needle See Rx Instructions .ROUTE .MEDSUPPLY Qty: 50 Rx Instructions: As directed insulin aspart U-100 [Novolog FlexPen U-100 Insulin] 100 unit/mL (3 mL) insulin pen 30 unit subcut TID Patient Comments: once/meal, 30u breakfast, 30u lunch, 38u dinner (+ sliding scale with each meal) metformin 500 mg tablet extended release 24 hr 1,000 mg PO BID insulin degludec [Tresiba FlexTouch U-200] 200 unit/mL (3 mL) insulin pen 100 unit subcut QHS hydrochlorothiazide 25 mg tablet 25 mg PO DAILY atorvastatin 40 mg tablet 40 mg PO DAILY metoprolol tartrate 50 mg tablet 50 mg PO Q12H liraglutide [Victoza 3-Caden] 0.6 mg/0.1 mL (18 mg/3 mL) pen injector 1.8 mg subcut QHS vitamin B complex [B Complex-Vitamin B12] Tablet 1 tab PO QDAY cholecalciferol (vitamin D3) 10 mcg (400 unit) capsule 10 mcg PO DAILY calcium carbonate-vitamin D3 600 mg-10 mcg (400 unit) capsule 1 cap PO QDAY ascorbate calcium (vitamin C) 500 mg tablet 500 mg PO QDAY amlodipine 10 mg tablet 10 mg PO DAILY aspirin 81 mg tablet,delayed release (DR/EC) 81 mg PO DAILY ibuprofen 600 mg Tablet 600 mg PO Q6H PRN (Reason: Pain) Qty: 30 0RF Follow Up/Referrals: Ibis Chilel MD [Primary Care Provider, Family Practice] Stand Alone Forms: MyHealth Info Instructions
[2025-05-27 23:43] LABS: Glucose, Point-of-Care* 70 mg/dl (60-115)
[2025-05-27] MEDS: LACTATED RINGERS 1000 ML 1,000 ML IV (23:45)
[2025-05-27] MEDS: ONDANSETRON 2 MG/ML inj 4 MG IVP (23:45)
[2025-05-27 23:47] LABS: Hematocrit* 40.3 % (33.0-51.0); Hemoglobin* 12.7 gm/dL (12.0-16.0); Immature Granulocytes Abs Auto 0.02 K/uL (0.00-0.30); Immature Granulocytes Pct Auto 0.2 %; Mean Corpuscular HGB Conc 32 gm/dL (32-36); Mean Corpuscular Hemoglobin 27 pg (26-34); Mean Corpuscular Volume 85 fL (80-100); RDW Coefficient of Variation % 14.0 % (11.5-15.5); Red Blood Count* 4.73 m/uL (4.00-5.20); White Blood Count* 10.43 K/uL (4.50-11.00)
[2025-05-27 23:48] LABS: Lymphocytes Absolute Auto 0.70 K/uL (0.90-2.90); Slide Review Reflex No
[2025-05-28] LABS: Chloride* 103 mmol/L (96-114); Potassium* 4.1 mmol/L (3.6-5.1); Sodium* 142 mmol/L (135-149)
[2025-05-28 00:03] LABS: Anion Gap 10 mEq/L (7-15); Blood Urea Nitrogen* 39 mg/dL (7-30); Calcium* 9.7 mg/dL (8.4-10.6); Carbon Dioxide* 29 mmol/L (20-32); Creatinine* 1.5 mg/dL (0.5-1.5); Est. Creatinine Clearance* 35.47; Estimated Glomerular Filt Rate 39 ml/min; Glucose* 76 mg/dL (60-115)
== END 2025-05-28 00:42 | disposition home or self-care (01) ==
LOC: ED 23:53
PROVIDERS: Emergency Provider Student in an Organized Health Care Education/Training Program; PCP Family Medicine
DX: R11.2 Nausea with vomiting, unspecified (principal)
CPT/HCPCS: 36415; 80048; 82947; 83735; 85025; 96374; 99283; 99284; J2405; J7120

== ENCOUNTER 2025-06-02 19:18 | Emergency (ER) | payer BC, SELFPAY ==
--- OUTSIDE RECORDS SUMMARY | 2025-06-02 19:21 | XMS_ITS | Clinical Summary ---
Author Organization [facility] [place] Address [address] [place] [address] Phone Care Team Providers Care Retail Service Lead Merchandiser Name Role Phone Ibis Chilel MD Primary Care Provider Allergies No known active allergies Medications aspirin (ST [place]) 81 MG EC tablet Take by mouth 1 (one) time each day 8 Active atorvastatin (LIPITOR) 40 MG tablet Take 40 mg by mouth in the morning. 5 Active Docusate Sodium (DSS) 100 MG capsule TAKE ONE CAPSULE (100 MG) BY MOUTH TWICE DAILY NEEDED FOR CONSTIPATION 5 Active gabapentin (NEURONTIN) 300 MG capsule Take 300 mg by mouth in the morning. 4 Active hydroCHLOROthia zide 25 MG tablet Take 25 mg by mouth in the morning. 5 Active NovoLOG FLEXPEN 100 UNIT/ML injection NJECT 28 UNITS UNDER THE SKIN AT BREAKFAST, 30 UNITS AT LUNCH, AND 46 UNITS AT SUPPER, PLUS CORRECTION SCALE UP TO 120 UNITS PER DAY. If you have dessert, give additional 20 units. 5 Active insulin degludec (TRESIBA FLEX TOUCH) 200 UNIT/ML injection Inject 100 Units under the skin 1 (one) time each day 5 Active lisinopril 40 MG tablet Take 40 mg by mouth in the morning. 5 Active metFORMIN XR (GLUCOPHAGE-XR) 500 MG 24 hr tablet Take 1,000 mg by mouth in the morning and 1,000 mg in the evening. 5 Active metoprolol tartrate (LOPRESSOR) 50 MG tablet Take 50 mg by mouth in the morning and 50 mg in the evening. 5 Active Mounjaro 2.5 MG/0.5ML solution auto-injector Inject 2.5 mg under the skin every 7 (seven) days 5 Active ondansetron ODT (ZOFRAN-ODT) [address] 4 mg under the tongue every 8 hours as needed 1 Active Empagliflozin (Jardiance) 10 MG tablet Take 10 mg by mouth 1 (one) time each day in the morning Active amLODIPine (NORVASC) 10 MG tablet Take 10 mg by mouth in the morning. 5 Active Active Problems Problem Noted Date Diagnosed Date Acquired cyst of kidney 03/04/2025 Chronic constipation 11/16/2023 Incontinence 11/16/2023 Stage 3a chronic kidney disease 09/04/2023 Restless leg syndrome 02/06/2023 Chronic cough 07/25/2022 Microalbuminuria 02/10/2020 Adenomatous polyp of colon 03/29/2018 Overview (12/01/2024): Colonoscopy 03/2018 polyp, repeat in 5 years Colonoscopy 07/2023 SSA, repeat in 5 years Infiltrating lobular carcinoma of breast 018 Psoriasis 01/15/2017 Hyperlipidemia 07/10/2016 Polyneuropathy due to type 2 diabetes mellitus 0 09/15/2015 Type 2 diabetes mellitus with hyperglycemia 01/2015 Uterine leiomyoma 04/12/2010 Hypertensive disorder 10/14/2008 Overview (11/28/2024): Updated by system to replace inactive record Obstructive sleep apnea syndrome 11/22/2006 Paroxysmal supraventricular tachycardia 11/23/19 07 Encounters Date Type Department Care Team Description 03/04/2025 8:30 AM CDT Office Visit [facility] [address] [place] [address] Chad Pratt MD Stage 3a chronic kidney disease (HCC) (Primary Dx); Hypertensive disorder; Type 2 diabetes mellitus with hyperglycemia (HCC); Acquired cyst of kidney from Last 3 Months Immunizations Immunization Administration Dates Next Due Influenza, Injectable, Madin Ladson Canine Kidney, Preservative Free 05/14/2024 Moderna Sars-cov-2 (Covid-19 ) Vaccine, Mrna, Williams Protein 02/28/2024,09/04/2023,06/08/2023 Moderna Sars-cov-2 50mcg/0.5ml 05/14/2024 Respiratory Syncytial Virus (Rsv), Unspecified 08/07/2024 Family History Medical History Relation Comments Diabetes Brother Hypertension Brother Cancer Father Diabetes Father Heart disease Father Kidney disease Father Stroke Father Heart disease Maternal Grandfather Cancer Maternal Grandmother Heart disease Mother Cancer Paternal Grandmother Diabetes Paternal Grandmother Relation Status Comments Brother Alive Father Maternal Grandfather Maternal Grandmother Mother Alive Mother's Sister Paternal Grandfather Paternal Grandmother Social History Tobacco Use Types Packs/Day Years Used Date Smoking Tobacco: Never Smokeless Tobacco: Never Tobacco Cessation:Counseling Given: Not Answered Alcohol Use Standard Drinks/Week Comments Never 0 (1 standard drink = 0.6 oz pur e alcohol) Comments Unknown Sex and Gender Information Value Date Recorded Sex Assigned at Not on file Legal Sex Female 1:03 PM EDT Gender Identity Not on file Sexual Orientation Not on file Last Filed Vital Signs Vital Sign Reading Time Taken Comments Blood Pressure 122/58 03/04/2025 8:25 AM CDT Pulse 65 03/04/2025 8:25 AM CDT Temperature - - Respiratory Rate - - Oxygen Saturation 96% 03/04/2025 8:25 AM CDT Inhaled Oxygen Concentration - - Weight 95.3 kg (210 lb) 03/04/2025 8:25 AM CDT Height 167.6 cm (5' 6) 03/04/2025 8:25 AM CDT Body Mass Index 33.89 03/04/2025 8:25 AM CDT Plan of Treatment Health Maintenance Due Date Last Done Comments Breast Cancer Screening 1960 Pneumococcal Vaccine: 50+ Ye ars (1 of 2 - PCV) 12/09/1979 Colorectal Cancer Screening: Annual FOBT 2009 Colorectal Cancer Screening: Colonoscopy 2009 Colorectal Cancer Screening: Sigmoidoscopy 2009 Hepatitis B Vaccine (1 of 3 - Risk 3-dose series) 2020 Diabetes: Ophthalmology Exam 11/03/2024 Diabetes: Pedal Pulse Checked 11/03/2024 Diabetes: Sensory Foot Exam 11/03/2024 Diabetes: Visual Foot Exam 11/03/2024 Influenza Vaccine (#1) 2025 05/14/2024 Diabetes: Hemoglobin A1C 08/05/2025 025, 01/30/2025, 10/29/2024 Insurance [facility] Medicare Care Teams Retail Service Lead Merchandiser Relationship Specialty Start Date End Date Ibis Chilel MD [address] [place], [place] [phone] PCP - General Family Medicine 11/03/24
--- OUTSIDE RECORDS SUMMARY | 2025-06-02 19:21 | XMS_ITS | Clinical Summary ---
Author Organization [employer] [facility] Address [address] [place] [id number] Care Team Providers Care Decision Analyst Name Role Phone Darrel Melanie Renzo MG Unavailable [phone] Rosie Chilel MD Primary Care Provider [phone] Shawn Garner MD Unavailable [phone] Allergies No known active allergies Medications ASPIRIN 81 MG TAB, DELAYED RELEASEIndications :Type II or unspecified type diabetes mellitus without mention of complication, not stated as uncontrolled (HC) take 1 tablet (81 mg) by oral route once daily 0 008 Active cholecalciferol (VITAMIN D) 1,000 unit capsule Take 1 capsule by mouth once daily. 0 017 Active cyanocobalamin (VITAMIN B-12) 1,000 mcg tablet Take 1 tablet by mouth once daily. 0 017 Active lancets (ACCU-CHEK SOFTCLIX LANCETS)Indication s:Type 2 diabetes mellitus with hyperglycemia, with long-term current use of insulin (HC) Dispense item covered by pt ins. E11.65 NIDDM type II - Test 4 times/day. 400 Each 3 017 Active calcipotriene 0.005% (DOVONEX) 0.005 % cream Apply topically to affected area(s) 2 times daily. 0 017 Active Blood-Glucose Meter,Continuous miscIndications:Ty pe 2 diabetes mellitus with hyperglycemia, with long-term current use of insulin (HC) As directed. 1 Kit 018 Active Blood-Glucose Transmitter deviIndications:Ty pe 2 diabetes mellitus with hyperglycemia, with long-term current use of insulin (HC) USE DIRECTED 1 Device 3 019 Active calcium carbonate (CALTRATE) 600 mg calcium (1,500 mg) tablet 2 in the morning and 1 at night 180 tablet 3 020 Active blood-glucose meterIndications:T ype 2 diabetes mellitus with hyperglycemia, with long-term current use of insulin (HC) Dispense meter, test strips, lancets covered by pt ins. E11.65 NIDDM type II, uncontrolled - Test 5 times/day. Reason: High A1C 1 Device 021 Active Diabetic ShoeIndications:Di abetic polyneuropathy associated with type 2 diabetes mellitus (HC) As directed. 1 Device 021 Active fluticasone (50 mcg per actuation) nasal solution (FLONASE)Indicatio ns:Nasal congestion,Chronic cough Inhale 1 [place] to both nostrils two times daily. 48 g 3 022 Active blood sugar diagnostic (Accu-Chek Nancy Plus test strp) stripIndications:T ype 2 diabetes mellitus with hyperglycemia, with long-term current use of insulin (HC) USE TO TEST BLOOD GLUCOSE 5 TIMES DAILY 500 Each 3 023 Active betamethasone dipropionate 0.05% (DIPROLENE) 0.05 % ointmentIndication s:Eczema, unspecified type Apply topically to affected area(s) once daily. 45 g 2 023 Active CPAPIndications:OS A (obstructive sleep apnea) Traveling CPAP machine for home use at pressure 8 cmw, full face mask x1/3month with a full face cushion x1/mo 1 Each 11 023 Active CPAPIndications:OS A (obstructive sleep apnea) RESMED CPAP (E0601) machine for home use at pressure: 8cmw, Choice of mask (A7030 or A7034) w/full face cushion (A7031) x1/mo, nasal cushion (A7032) x2/mo, or nasal pillows (A7033) x 2/mo; Length of Need: 99 months; Frequency of use: Daily 1 Each 024 Active gabapentin (NEURONTIN) 300 mg capsuleIndications :Neuropathy Take 1 Capsule (300 mg) by mouth at bedtime. Take 1 hour before bed 90 Capsule 024 Active sensor (DexContext Matters G7 Sensor) for continuous blood glucose monitor (CGM)Indications:T ype 2 diabetes mellitus with hyperglycemia, with long-term current use of insulin (HC) To be used to read blood sugars, change sensor every 10 days. This is for the glucose SENSOR, also order the general manager land department. 9 Each 3 024 Active docusate (COLACE) 100 mg capsuleIndications :Chronic constipation TAKE ONE CAPSULE (100 MG) BY MOUTH TWICE DAILY NEEDED FOR CONSTIPATION 90 Capsule 025 Active Diabetic ShoeIndications:Di abetic polyneuropathy associated with type 2 diabetes mellitus (HC) As directed. 1 Each 025 Active pen needle (BD Arielle 2nd Gen Pen Needle) 32 gauge x 5/32 (disposable insulin pen needle)Indications :Type 2 diabetes mellitus with hyperglycemia, with long-term current use of insulin (HC) Use as directed for insulin injections 5 times daily 500 Each 3 025 Active empagliflozin (Jardiance) 25 mg tabletIndications: Type 2 diabetes mellitus with hyperglycemia, with long-term current use of insulin (HC) Take 1 Tablet (25 mg) by mouth once daily. 90 Tablet 025 Active metFORMIN 500 mg Extended-Release tabletIndications: Type 2 diabetes mellitus with hyperglycemia, with long-term current use of insulin (HC) Take 2 Tablets (1,000 mg) by mouth two times daily with meals. 360 Tablet 1 025 Active lisinopriL 40 mg tabletIndications: Hypertension, unspecified type Take 1 Tablet (40 mg) by mouth once daily. 90 Tablet 1 025 Active hydroCHLOROthiazid e 25 mg tabletIndications: HTN (hypertension) Take 1 Tablet (25 mg) by mouth once daily. 90 Tablet 2 025 Active atorvastatin 40 mg tabletIndications: Hyperlipidemia, unspecified hyperlipidemia type Take 1 Tablet (40 mg) by mouth once daily. 90 Tablet 025 Active ondansetron (ZOFRAN ODT) 4 mg disintegrating tabletIndications: Nausea Place 1 Tablet (4 mg) on the tongue every 8 hours if needed for Nausea/Vomitin g. 15 Tablet 1 025 Active amLODIPine (NORVASC) 10 mg tabletIndications: Hypertension, unspecified type TAKE ONE TABLET(10MG) BY MOUTH EVERY DAY 90 Tablet 3 025 Active metoprolol tartrate (LOPRESSOR) 50 mg tabletIndications: Paroxysmal supraventricular tachycardia (HC) TAKE ONE TABLET(50MG) BY MOUTH TWICE A DAY 180 Tablet 1 025 Active NovoLOG Flexpen U-100 Insulin 100 unit/mL (3 mL) penIndications:Typ e 2 diabetes mellitus with hyperglycemia, with long-term current use of insulin (HC) INJECT 28 UNITS UNDER THE SKIN AT BREAKFAST, 30 UNITS AT LUNCH, AND 46 UNITS AT SUPPER PLUS CORRECTION SCALE UP TO 120 UNITS PER DAY; IF HAVE DESSERT GIVE ADDITIONAL 20 UNITS 90 mL 025 Active insulin degludec (U-200) (Tresiba FlexTouch U-200) 200 unit/mL (3 mL) penIndications:Typ e 2 diabetes mellitus with hyperglycemia, with long-term current use of insulin (HC) INJECT 114 UNITS UNDER THE SKIN ONCE DAILY WITH EVENING THOMAS 54 mL 025 Active dulaglutide (TRULICITY) 0.75 mg/0.5 mL subcutaneous penIndications:Typ e 2 diabetes mellitus with hyperglycemia, with long-term current use of insulin (HC) Inject 0.75 mg subcutaneous once weekly. 6 mL 025 Active NovoLOG Flexpen U-100 Insulin 100 unit/mL (3 mL) penIndications:Typ e 2 diabetes mellitus with hyperglycemia, with long-term current use of insulin (HC) INJECT 28 UNITS UNDER THE SKIN AT BREAKFAST 30 UNITS AT LUNCH AND 46 UNITS AT SUPPER PLUS CORRECTION SCALE UP TO 120 UNITS PER DAY IF HAVE DESSERT GIVE ADDITIONAL 20 UNITS 50 mL 025 2024 Discontinued metoprolol tartrate 50 mg tabletIndications: Paroxysmal supraventricular tachycardia (HC) Take 1 Tablet (50 mg) by mouth two times daily. 180 Tablet 025 2024 Discontinued insulin degludec (U-200) 200 unit/mL (3 mL) penIndications:Typ e 2 diabetes mellitus with hyperglycemia, with long-term current use of insulin (HC) INJECT 100 UNITS UNDER THE SKIN ONCE DAILY WITH EVENING MEAL. 54 mL 025 2024 Discontinued dulaglutide (TRULICITY) 0.75 mg/0.5 mL subcutaneous penIndications:Typ e 2 diabetes mellitus with hyperglycemia, with long-term current use of insulin (HC) Inject 0.75 mg subcutaneous once weekly. 6 mL 025 2024 Discontinued(R eorder (E-cancel not sent)) dulaglutide (TRULICITY) 1.5 mg/0.5 mL subcutaneous penIndications:Typ e 2 diabetes mellitus with hyperglycemia, with long-term current use of insulin (HC) Inject 1.5 mg subcutaneous once weekly. 6 mL 025 2024 Discontinued(* Medication adjustment) insulin degludec (U-200) (Tresiba FlexTouch U-200) 200 unit/mL (3 mL) penIndications:Typ e 2 diabetes mellitus with hyperglycemia, with long-term current use of insulin (HC) INJECT 112 UNITS UNDER THE SKIN ONCE DAILY WITH EVENING THOMAS 54 mL 025 2024 Discontinued(* Medication adjustment) Hospital, Clinic, or Other Facility Administered Medication Ordered Dose Route Frequency Start Date End Date Status ondansetron 4 mg injection (ZOFRAN)Indications:Nausea and vomiting, unspecified vomiting type,Dehydration 4 mg IV ONE TIME 05/07/2025 05/07/2025 Ended ondansetron 4 mg injection (ZOFRAN)Indications:Nausea and vomiting, unspecified vomiting type,Dehydration 4 mg IV ONE TIME 05/29/2025 05/29/2025 Ended Active Problems Problem Noted Date Diagnosed Date Diabetes mellitus with macular edema, left eye 0 10/13/2024 Overview (10/13/2024): new on [facility] Eye exam 09/2024 Paroxysmal SVT (supraventricular tachycardia) Mixed stress and urge incontinence 11/16/2023 Chronic constipation 11/16/2023 Stage 3a chronic kidney disease 09/04/2023 Restless leg syndrome 02/06/2023 Chronic cough 07/25/2022 COVID-19 virus infection 08/10/2020 Microalbuminuria 02/10/2020 Hypertensive disease 02/10/2020 Shoulder pain, right 10/28/2018 Adenomatous colon polyp 03/29/2018 Overview (08/21/2023): Colonoscopy 03/2018 polyp, repeat in 5 years Colonoscopy 07/2023 SSA, repeat in 5 years Lobular carcinoma of breast 03/08/2018 Psoriasis 01/15/2017 Allergic rhinitis 08/10/2016 Hyperlipidemia, unspecified 07/10/2016 Diabetic polyneuropathy asso ciated with type 2 diabetes mellitus 09/15/2015 Type 2 diabetes mellitus with hyperglycemia 01/2015 Hepatitis B immune 05/07/2013 Uterine fibroid 04/12/2010 HTN (hypertension) 10/14/2008 Overview (11/02/2009): Updated by system to replace inactive record Paroxysmal supraventricular tachycardia 11/23/19 07 RADHAMES, 07/08/2002, 37 11/22/2006 Pap smear for cervical cancer screening Overview (12/21/2021): 10/2021 NIL/HPV negative. Plan: Routine screening Resolved Problems Problem Noted Date Diagnosed Date Resolved Date Menorrhagia 04/12/2010 04/11/2017 Anemia, unspecified 01/23/2009 04/11/20 17 Overview (01/23/2009): Probably iron deficiency Encounters Date Type Department Care Team Description 06/02/2025 8:15 AM CDT [facility] [address] [place] [address] Lab, [place] <No scans attached> 06/02/2025 Nurse Triage [facility] [address] [place] [address] Rosie Chilel MD Diarrhea; Dehydration 06/01/2025 2:40 PM CDT [facility] [address] [place] [address] Enoc Mendoza MD Gi Problem (05/27/2025 - started having vomiting, diarrhea/Sunday was the last time she vomited. /Having to run to bathroom due to diarrhea 3-4 times per hour ) 06/01/2025 Travel 05/29/2025 2:25 PM CDT [facility] [address] [place] [address] Rosie Chilel MD Concerns 05/29/2025 Travel 05/22/2025 Refill [facility] [address] [place] [address] Rosie Chilel MD Refill Request (Novolog Flexpen U-100 Insulin) 05/21/2025 Refill [facility] [address] [place] [address] Rosie Chilel MD Refill Request (Metoprolol Tartrate) 05/19/2025 Refill [facility] [address] [place] [address] Rosie Chilel MD Refill Request (Tresiba Flextouch U-200) 05/14/2025 Refill [facility] [address] [place] [address] Rosie Chilel MD Refill Request (Metoprolol Tartrate) 05/07/2025 10:25 AM CDT Office Visit [address] [address] Rosie Chilel MD Vomiting 05/07/2025 Travel 05/06/2025 3:40 PM CDT Office Visit [address] [address] Rosie Chilel MD Diabetes 05/05/2025 12:00 PM CDT Office Visit [facility] [address] [address] Shawn Garner MD Follow Up (4-6 week follow up lab and xray results. ) 05/05/2025 Travel 05/01/2025 Travel 04/17/2025 2:25 PM CDT Office Visit [address] [address] Rosie Chilel MD Follow Up (Bilateral leg swelling); Diabetes 04/17/2025 Travel 04/17/2025 Refill [facility] [address] [place] [address] Rosie Chilel MD Refill Request (Amlodipine) 04/16/2025 Refill [facility] [address] [place] [address] Rosie Chilel MD Refill Request (Furosemide 20mg tabs) 04/15/2025 Travel 04/14/2025 Telephone [facility] [address] [place] [address] Rosie Chilel MD Diabetes Care Management (DEXCOM READINGS) 04/13/2025 Orders Only [facility] Scanner 1 scan: (1-Ord) DEXCOM, DAILY STATISTICS, 04/13/2025 04/10/2025 8:40 AM CDT Orders Only [facility] [address] [facility] [address] [place] [address] Lab 04/10/2025 Travel 04/09/2025 Travel 04/07/2025 8:30 AM CDT Office Visit [facility] [address] [place] [address] Niya Weber MD Consult (CRESPO (dyspnea on exertion), CAD in upper [place] artery per Dr. Chilel ) 04/07/2025 Travel 04/03/2025 2:00 PM CDT Office [facility] [address] [place] [address] Rosie Chilel MD Results (Lymph nodes ) 04/03/2025 Travel 04/02/2025 10:00 AM CDT Office Visit [facility] [address] [place] [address] [address] [place] [address] Shawn Garner MD Consult (Positive DONELL (antinuclear antibody) /) 04/01/2025 Travel 03/25/2025 10:30 AM CDT Ancillary Procedure [facility] [id number] [place] [address] [address] [place] [address] 03/25/2025 9:00 AM CDT Ancillary Procedure [facility] [address] [facility] [address] [place] [address] 03/25/2025 Orders Only [facility] [address] [place] [address] Rosie Chilel MD <No scans attached> 03/24/2025 7:30 AM CDT [facility] [address] [place] [address] Rosie Chilel MD Foot Problem (Bilateral feet, about 2 weeks); Medication Management 03/24/2025 Telephone [facility] [address] [place] [address] Rosie Chilel MD Appointment (labs) 03/24/2025 Orders Only [facility] [address] [facility] [address] [place] [address] Helio Boss MD <No scans attached> 03/24/2025 Orders Only [facility] [address] [place] [address] Rosie Chilel MD 1 scan: (1-Ord) [id number] 03/24/2025 Travel from Last 3 Months Immunizations Immunization Administration Dates Next Due COVID-19 VACCINE SPIKEVAX (M ODERNA 50MCG/0.5ML) 12YO+ PFS 02/28/2024,09/04/2023,06/08/2023 COVID-19 vaccine (Moderna 100mcg/0.5mL) PF, MDV 07/23/2021,11/04/2020,10/06/2020 COVID-19 vaccine (Moderna 50 mcg/0.5mL) 12YO+ BIVALENT PF, MDV 05/14/2024 COVID-19 vaccine ([employer]-Bio NTech 30mcg/0.3mL) 12YO+ BIVALENT PF, MDV 06/08/2022 COVID-19 vaccine (PushSpringBio NTech 30mcg/0.3mL) 12YO+ VIOLA-SUCROSE PF, MDV 11/11/2021 Influenza A (H1N1), Inactiva benson (Age >=3 Years) 07/27/2009 Influenza, CCIIV3 (Age >=6 M O) (Egg Free) 05/14/2024 Influenza, IIV3 (Age 6-35 mos) 05/26/2009 Influenza, IIV3 (Age >=3 years) 05/18/20 16,05/08/2014,05/09/2013,05/10,05/12/2011,06/17/2010,06/01/2004 Influenza, IIV4 05/12/2025, 4,05/15/2023,06/08,05/25/2021,05/12/2020,05/06/2019 ,05/14/2018,05/11/2017,05/18/2016,09/2014,05/08/2014,04/28/2014, 3,05/10/2012,05/12/2011,06/17/2010,03/2009,05/26/2009,06/01/2004 Influenza, IIV4 (=>6mos) MDV 05/15/2023, 05/25/2021,05/12/2020,05/14,05/11/2017 Influenza, Injectable, Mdck, Quadrivalent, W/preservative 05/15/2023 Pneumococcal Conj 20-valent (Prevnar 20) 03/07/2022 Pneumococcal Poly,23-Valent (Pneumovax) 06/12/2018 RSV, Recombinant ADJ Reconst ituted (Arexvy 120MCG/0.5mL) 08/07/2024 Rsv Unspecified Vaccine (Not Known If RSV Vaccine or MAB) 08/07/2024 Td, Preservative Free (age >= 7 Years) 5 Tdap 03/24/2025,09/09/2004 Zoster (Shingrix-RZV, recombinant) 01/31/2019, Family History Medical History Relation Name Comments Diabetes Father Cancer-breast Paternal Grandmother Cancer-colon No Family History Relation Name Status Comments Father Paternal Grandmother Social History Tobacco Use Types Packs/Day Years Used Date Smoking Tobacco: Never Passive Smoke Exposure: Yes Smokeless Tobacco: Never Tobacco Cessation:Counseling Given: Yes Comments:Daughter smokes-outside Alcohol Use Standard Drinks/Week Comments No 0 (1 standard drink = 0.6 oz pur e alcohol) PHQ-2 Answer Date Recorded PHQ-2 TOTAL SCORE 0 07/30/2024 Social Connections Answer Date Recorded Do you often feel lonely or isolated from those around you? 0 10/29/2024 Alcohol Use Answer Date Recorded How often do you have a drink containing alcohol ? 0 05/29/2025 Average Number of Drinks Not on file 025 How often do you have five or more drinks on one occasion? 0 05/29/2025 Financial Resource Strain Answer Date R ecorded Difficulty of Paying Living Expenses 3 10/29/2024 Difficulty of Paying Living Expenses Not on file 10/29/2024 Food Insecurity Answer Date Recorded Do you worry your food will run out before you are able to buy more? 1 10/29/2024 Transportation Needs Answer Date Record ed Does lack of transportation keep you from medica l appointments? 1 10/29/2024 Does lack of transportation keep you from work, meetings or getting things that you need? 1 10/29/2024 Housing Stability Answer Date Recorded What is your housing situation today? 1 10/29/2024 Utilities Answer Date Recorded Do you have trouble paying f or utilities (for example, heat, electricity, water, phone)? 1 10/29/2024 Comments No Sex and Gender Information Value Date Recorded Sex Assigned at Not on file Legal Sex Female 5:25 AM PROCESS ENG Gender Identity Not on file Sexual Orientation Not on file Occupation Industry Job Start Date Job End Date TEACHER Not on file Not on file Not on file Obstetrics History Para Term AB IAB SAB Ectopic Multiple Livin g Live Births 5 3 2 1 1 3 Date Outcome GA Total Labor Labor/2nd/3rd Weight Sex Type Anes PTL Jannie A1 A5 Name Clin Para Para Para IAB SAB Last Filed Vital Signs Vital Sign Reading Time Taken Comments Blood Pressure 99/62 06/01/2025 2:35 PM CDT Pulse 73 06/01/2025 2:35 PM CDT Temperature 37 C (98.6 F) 05/29/2025 2:12 PM CDT Respiratory Rate 14 08/10/2023 8:50 AM PROCESS ENG Oxygen Saturation 98% 06/01/2025 2:35 PM CDT Inhaled Oxygen Concentration - - Weight 92.9 kg (204 lb 12.8 oz) 06/01/2025 2:35 PM CDT Height 167.9 cm (5' 6.1) 05/05/2025 12 :05 PM CDT Body Mass Index 32.96 05/05/2025 12:05 PM CDT Plan of Treatment Upcoming Encounters Date Type Department Care Team (Late st Contact Info) Description 06/26/2025 4:00 PM PROCESS ENG Ancillary Procedure [address] [address] 07/25/2025 10:30 AM PROCESS ENG Ancillary Procedure [facility] [address] [facility] [address] [place] [address] 08/06/2025 2:50 PM PROCESS ENG [facility] [address] [place] [address] Rosie Chilel MD [address] [place] [address] 08/06/2025 4:20 PM PROCESS ENG Ancillary Procedure [facility] [address] [place] [address] 02/02/2026 9:30 AM CDT Office Visit [facility] [address] [facility] [address] [place] [address] [place] [address] [place] [address] Health Maintenance Due Date Last Done Comments HIV for age 15-65 12/09/1975 COVID-19 vaccine series (2024- season) 2025 05/14/2024, 02/28/2024, 09/04/2023, Additional history exists Mammogram for age 45-75 07/21/2025 07/21/20 24, 07/13/2023, 07/12/2022, Additional history exists Depression screening for age 12+ 07/30/2025 07/30/2024, 06/22/2023, 11/29/2021, Additional history exists BMI (ht and wt on same day) for age 18+ 05/05/2026 05/05/2025, 04/02/2025, 07/23/2024, Additional history exists Colonoscopy through age 75 08/10/202808/10, 08/10/2023, 08/10/2023, Additional history exists Lipids for age 45-75 07/30/2029 07/30/2024, 06/22/2023, 11/29/2021, Additional history exists Tetanus booster 03/24/2035 03/24/2025, 02/19, 09/09/2004 Zoster (shingles) series for age 50+ Completed 01/31/2019, 10/28/2018 Pneumococcal series for age 50+ Completed , 06/12/2018 RSV vaccine for adults or Completed 08/07/2024, 08/07/2024 Hepatitis C screening for ag e 18-79 Completed 04/02/2025, 09/02/2013 Influenza Vaccine Completed 05/12/2025, , 05/14/2024, Additional history exists Procedures Procedure Name Priority Date/Time Associated Diagnosis Comments CBC WITH AUTO DIFFERENTIAL Routine 06/01/2025 3:34 PM CDT Acute diarrhea URINALYSIS MICROSCOPIC Routine 3:34 PM CDT Dysuria URINALYSIS MACROSCOPIC - [facility] ONLY POC DIP (QUEST) Routine 06/01/2025 3:34 PM CDT Dysuria BASIC METABOLIC PANEL Routine 06/01/2025 3:34 PM CDT Acute diarrhea CBC WITH AUTO DIFFERENTIAL Routine 06/01/2025 3:34 PM CDT Acute diarrhea CBC WITH AUTO DIFFERENTIAL STAT 05/07/2025 10:50 AM CDT Nausea and vomiting, unspecified vomiting type Dehydration CBC WITH AUTO DIFFERENTIAL STAT 05/07/2025 10:50 AM CDT Nausea and vomiting, unspecified vomiting type Dehydration LIPASE STAT 05/07/2025 10:50 AM CDT Nausea and vomiting, unspecified vomiting type Dehydration COMP METABOLIC PANEL STAT 05/07/2025 10:50 AM CDT Nausea and vomiting, unspecified vomiting type Dehydration BASIC METABOLIC PANEL Routine 05/06/2025 3:52 PM CDT Type 2 diabetes mellitus with hyperglycemia, with long-term current use of insulin (HC) Hypertension, unspecified type Acute renal failure superimposed on stage 3a chronic kidney disease, unspecified acute renal failure type (HC) HEMOGLOBIN A1C MONITORING (POCT) Routine 05/06/2025 3:52 PM CDT Type 2 diabetes mellitus with hyperglycemia, with long-term current use of insulin (HC) Hypertension, unspecified type Acute renal failure superimposed on stage 3a chronic kidney disease, unspecified acute renal failure type (HC) BASIC METABOLIC PANEL Routine 04/17/2025 3:28 PM CDT Acute renal failure superimposed on stage 3a chronic kidney disease, unspecified acute renal failure type (HC) SCAN-DIAGNOSTIC REPORT 12:00 AM CDT BASIC METABOLIC PANEL Routine 04/10/2025 8:42 AM CDT CRESPO (dyspnea on exertion) CAD in upper [place] artery CBC WITH AUTO DIFFERENTIAL Routine 04/02/2025 10:54 AM CDT Fatigue, unspecified type ANTI HCV Routine 04/02/2025 10:54 AM CDT Positive DONELL (antinuclear antibody) HBSAG (HBS) Routine 04/02/2025 10:54 AM CDT Positive DONELL (antinuclear antibody) ANTI HBC Routine 04/02/2025 10:54 AM CDT Positive DONELL (antinuclear antibody) CK TOTAL Routine 04/02/2025 10:54 AM CDT Positive DONELL (antinuclear antibody) THYROPEROXIDASE ANTIBODY Routine 04/02/2025 10:54 AM CDT Fatigue, unspecified type CBC WITH AUTO DIFFERENTIAL Routine 04/02/2025 10:54 AM CDT Fatigue, unspecified type FERRITIN Routine 04/02/2025 10:54 AM CDT Fatigue, unspecified type IRON PLUS IRON BINDING CAP Routine 04/02/2025 10:54 AM CDT Fatigue, unspecified type LUPUS ANTICOAGULANT Routine 04/02/2025 1 0:54 AM CDT Positive DONELL (antinuclear antibody) CARDIOLIPIN ANTIBODY Routine 04/02/2025 10:54 AM CDT Positive DONELL (antinuclear antibody) BETA 2 GLYCOPROTEIN I PAT Routine 04/02/2025 10:54 AM CDT Positive DONELL (antinuclear antibody) UA W/ SEDIMENT EXAM REFLEXED PER CRITERIA Routine 04/02/2025 10:54 AM CDT Positive DONELL (antinuclear antibody) SJOGRENS ANTIBODIES Routine 04/02/2025 1 0:54 AM CDT Positive DONELL (antinuclear antibody) Family history of Sjogren disease CLINICAL DIETETIC TECHNICIAN ANTIBODY Routine 04/02/2025 10:54 AM CDT Positive DONELL (antinuclear antibody) C3 COMPLEMENT Routine 04/02/2025 10:54 AM CDT Positive DONELL (antinuclear antibody) DNA DOUBLE-STRANDED (DSDNA) ANTIBODIES BY CRITHIDIA LUCILIAE IFA Routine 04/02/2025 10:54 AM CDT Positive DONELL (antinuclear antibody) C4 COMPLEMENT Routine 04/02/2025 10:54 AM CDT Positive DONELL (antinuclear antibody) ANTI-FOREMAN Routine 04/02/2025 10:54 AM CDT Positive DONELL (antinuclear antibody) ANTINUCLEAR ANTIBODY BY IFA Routine 04/02/2025 10:54 AM CDT Positive DONELL (antinuclear antibody) BASIC METABOLIC PANEL Routine 04/02/2025 10:54 AM CDT Bilateral leg edema CT CARDIAC CORONARY ARTERIES CV DUAL READ KENNY 03/25/2025 10:32 AM CDT Bilateral leg edema CRESPO (dyspnea on exertion) CT CARDIAC CORONARY ARTERIES RAD DUAL READ KENNY 03/25/2025 10:32 AM CDT Bilateral leg edema CRESPO (dyspnea on exertion) ECHO TTE COMPLETE WO CONTRAST KENNY 03/25/2025 9:12 AM CDT Bilateral leg edema CRESPO (dyspnea on exertion) EKG 12 LEAD Routine 03/24/2025 8:33 AM CDT CRESPO (dyspnea on exertion) TN READING EKG - NO CHARGE, COMP ONLY Routine 03/24/2025 8:32 AM CDT CRESPO (dyspnea on exertion) COMP METABOLIC PANEL Routine 03/24/2025 8:26 AM CDT Bilateral leg edema PRO-BNP Routine 03/24/2025 8:26 AM CDT Bilateral leg edema CRESPO (dyspnea on exertion) PROTEIN/CREAT RATIO,URINE Routine 03/24/2025 8:25 AM CDT Bilateral leg edema URINE ALBUMIN TO CREATININE RATIO, RANDOM Routine 03/24/2025 8:25 AM CDT Type 2 diabetes mellitus with hyperglycemia, with long-term current use of insulin (HC) URINALYSIS [facility]CROSCOPIC - [facility] POC DIP ([facility]) Routine 03/24/2025 8:25 AM CDT Bilateral leg edema LDL CHOLESTEROL,DIRECT Routine 4 3:28 PM PROCESS ENG Stage 3a chronic kidney disease (HC) XR MAMMO MARK ANTHONY BILAT SCREEN Routine 07/21/2024 4:36 PM PROCESS ENG Routine adult health maintenance COLONOSCOPY SCREENING Routine 08/10/2023 7:19 AM PROCESS ENG Polyp of colon, unspecified part of colon, unspecified type from Last 3 Months or Most Recently Relevant to Health Maintenance Results * (ABNORMAL) POCT Urinalysis Dipstick Only [[id number]] (06/01/2025 3:34 PM CDT) Only the most recent of2 resultswithin the time period is included. SPECIFIC GRAVITY 1.015 1.001 - 1.035 06/01/2025 3:53 PM CDT [facility] PROTEIN TRACE(A) NEGATIVE 06/01/2025 3:53 PM CDT [facility] GLUCOSE NEGATIVE NEGATIVE 06/01/2025 3:53 PM CDT [facility] KETONES NEGATIVE NEGATIVE 06/01/2025 3:53 PM CDT [facility] BILIRUBIN NEGATIVE NEGATIVE 06/01/2025 3:53 PM CDT [facility] OCCULT BLOOD TRACE(A) NEGATIVE 06/01/2025 3:53 PM CDT [facility] NITRITE NEGATIVE NEGATIVE 06/01/2025 3:53 PM CDT [facility] PH 5.5 5.0 - 8.0 06/01/2025 3:53 PM CDT [facility] LEUKOCYTE ESTERASE 1+(A) NEGATIVE 06/01/2025 3:53 PM CDT [facility] Urine URINE SPECIMEN / Unknown Non-Blood / Unknown 06/01/2025 3:34 PM CDT 06/01/2025 3:34 PM CDT us Enoc Mendoza MD URINE Final Res ult [facility] [address] [place] [address], [place] [phone] [facility] [address] [place] [address], [place] [phone] * (ABNORMAL) CBC WITH AUTO DIFFERENTIAL (06/01/2025 3:34 PM CDT) Only the most recent of3 resultswithin the time period is included. WHITE BLOOD CELL COUNT 10.7 3.8 - 10.8 Thousand/ uL 06/02/2025 3:55 AM CDT [facility] RED BLOOD CELL COUNT 4.43 3.80 - 5.10 Million/u L 06/02/2025 3:55 AM CDT [facility] HEMOGLOBIN 12.0 11.7 - 15.5 g/dL 06/02/2025 3:55 AM CDT [facility] HEMATOCRIT 37.9 35.0 - 45.0 % 06/02/2025 3:55 AM CDT [facility] MCV 85.6 80.0 - 100.0 fL 06/02/2025 3:55 AM CDT [facility] MCH 27.1 27.0 - 33.0 pg 06/02/2025 3:55 AM CDT [facility] MCHC 31.7(L) 32.0 - 36.0 g/dL 06/02/2025 3:55 AM CDT [facility] Comment: For adults, a slight decrease in the calculated MCHC value (in the range of 30 to 32 g/dL) is most likely not clinically significant; however, it should be interpreted with caution in correlation with other red cell parameters and the patient's clinical condition. RDW 13.9 11.0 - 15.0 % 06/02/2025 3:55 AM CDT [facility] PLATELET COUNT 371 140 - 400 Thousand/ uL 06/02/2025 3:55 AM CDT [facility] MPV 10.3 7.5 - 12.5 fL 06/02/2025 3:55 AM CDT [facility] NEUTROPHILS 69.7 % 06/02/2025 3:55 AM CDT [facility] LYMPHOCYTES 12.1 % 06/02/2025 3:55 AM CDT [facility] MONOCYTES 15.1 % 06/02/2025 3:55 AM CDT [facility] EOSINOPHILS 2.4 % 06/02/2025 3:55 AM CDT [facility] BASOPHILS 0.7 % 06/02/2025 3:55 AM CDT [facility] ABSOLUTE NEUTROPHILS 7458 1500 - 7800 cells/uL 06/02/2025 3:55 AM CDT [facility] ABSOLUTE LYMPHOCYTES 1295 850 - 3900 cells/uL 06/02/2025 3:55 AM CDT [facility] ABSOLUTE MONOCYTES 1616(H) 200 - 950 cells/uL 06/02/2025 3:55 AM CDT [facility] ABSOLUTE EOSINOPHILS 257 15 - 500 cells/uL 06/02/2025 3:55 AM CDT [facility] ABSOLUTE BASOPHILS 75 0 - 200 cells/uL 06/02/2025 3:55 AM CDT [facility] CBC (INCLUDES DIFF/PLT) COMMENTS SEE NOTE 06/02/2025 3:55 AM CDT [facility] Comment: Review of peripheral smear confirms automated results. Blood BLOOD SPECIMEN / Unknown [facility] / Unknown 06/01/2025 3:34 PM CDT 06/01/2025 3:34 PM CDT Enoc Mendoza MD HEMATOLOGY Final Res ult [facility] [place] [address] [id number] [place] [address], * (ABNORMAL) URINALYSIS MICROSCOPIC [89836.1] - routine (06/01/2025 3:34 PM CDT) RBC 0-2 0-2, None Seen /HPF 06/01/2025 11:27 PM CDT [facility] WBC 11-25(A) 0-2, 3-5, None Seen /HPF 06/01/2025 11:27 PM CDT [facility] BACTERIA Few None Seen, Rare, Few Bacteria/H PF 06/01/2025 11:27 PM CDT [facility] EPITHELIAL CELLS Few None Seen, Few Epi/HPF 06/01/2025 11:27 PM CDT [facility] HYALINE CASTS 3-5 0-2, 3-5 /LPF 06/01/2025 11:27 PM CDT [facility] Urine URINE SPECIMEN / Unknown Non-Blood / Unknown 06/01/2025 3:34 PM CDT 06/01/2025 3:34 PM CDT us Enoc Mendoza MD URINE Final Res ult [facility] [address] [place] [address], * (ABNORMAL) BASIC METABOLIC PANEL (06/01/2025 3:34 PM CDT) Only the most recent of5 resultswithin the time period is included. SODIUM 136 135 - 146 mmol/L 06/02/2025 3:41 AM CDT [facility] POTASSIUM 4.5 3.5 - 5.3 mmol/L 06/02/2025 3:41 AM CDT [facility] CARBON DIOXIDE 24 20 - 32 mmol/L 06/02/2025 3:41 AM CDT [facility] GLUCOSE 156(H) 65 - 99 mg/dL 06/02/2025 3:41 AM CDT [facility] Comment: Fasting reference interval For someone without known diabetes, a glucose value >125 mg/dL indicates that they may have diabetes and this should be confirmed with a follow-up test. CALCIUM 8.8 8.6 - 10.4 mg/dL 06/02/2025 3:41 AM CDT [facility] CREATININE 1.48(H) 0.50 - 1.05 mg/dL 06/02/2025 3:41 AM CDT [facility] BUN/CREATININE RATIO 34(H) 6 - 22 (calc) 06/02/2025 3:41 AM CDT [facility] EGFR 39(L) > OR = 60 mL/min/1. 73m2 06/02/2025 3:41 AM CDT [facility] UREA NITROGEN (BUN) 50(H) 7 - 25 mg/dL 06/02/2025 3:41 AM CDT [facility] ELECTROLYTE BALANCE 5(L) 7 - 17 mmol/L (calc) 06/02/2025 3:41 AM CDT [facility] CHLORIDE 107 98 - 110 mmol/L 06/02/2025 3:41 AM CDT [facility] Blood BLOOD SPECIMEN / Unknown [facility] / Unknown 06/01/2025 3:34 PM CDT 06/01/2025 3:34 PM CDT Enoc Mendoza MD CHEMISTRY Final Res ult [facility] [address] [address], * STAT Lipase (05/07/2025 10:50 AM CDT) LIPASE 57.2 13.0 - 60.0 IU/L 05/07/2025 1:17 PM CDT [facility] Blood BLOOD SPECIMEN / Unknown [facility] / Unknown 05/07/2025 10:50 AM CDT 05/07/2025 10:50 AM CDT Rosie Chilel MD CHEMISTRY Final Resul t [facility] [address] [place] [address] * (ABNORMAL) STAT Comp Metabolic Panel CMP (05/07/2025 10:50 AM CDT) Only the most recent of2 resultswithin the time period is included. SODIUM 139 136 - 145 mmol/L 05/07/2025 1:17 PM T [facility] POTASSIUM 5.2(H) 3.5 - 5.1 mmol/L 05/07/2025 1:17 PM [facility] CHLORIDE 103 98 - 107 mmol/L 05/07/2025 1:17 PM T [facility] CO2,TOTAL 23 22 - 29 mmol/L 05/07/2025 1:17 PM [facility] ANION GAP 13 5 - 18 05/07/2025 1:17 PM [facility] GLUCOSE 164(H) 70 - 99 mg/dL 05/07/2025 1:17 PM [facility] CALCIUM 9.3 8.8 - 10.4 mg/dL 05/07/2025 1:17 PM [facility] Comment: Reference ranges for this test were updated on 06/24/2024 to reflect our healthy population more accurately. Reference range changes are not retroactively applied to results, but previous results using the same methodology can be interpreted in the context of the new reference range. BUN 43(H) 8 - 23 mg/dL 05/07/2025 1:17 PM [facility] CREATININE 1.34(H) 0.50 - 0.90 mg/dL 05/07/2025 1:17 PM [facility] BUN/CREAT RATIO 32(H) 10 - 20 1:17 PM [facility] eGFR 44(L) >90 mL/min/1. 73m2 05/07/2025 1:17 PM [facility] Comment:As of 2021, eG FR is calculated by the CKD-EPI creatinine equation without race adjustment. eGFR can be influenced by muscle mass, exercise, and diet. The reported eGFR is an estimation only and is only applicable if the renal function is stable. ALBUMIN 4.4 4.0 - 4.9 g/dL 05/07/2025 1:17 PM [facility] PROTEIN,TOTAL 7.5 6.0 - 8.0 g/dL 05/07/2025 1:17 PM [facility] BILIRUBIN,TOTAL 0.7 0.0 - 1.2 mg/dL 05/07/2025 1:17 PM [facility] ALK PHOSPHATASE 93 35 - 104 IU/L 05/07/2025 1:17 PM [facility] ALT (SGPT) 21 10 - 35 IU/L 05/07/2025 1:17 PM [facility] AST (SGOT) 22 10 - 35 IU/L 05/07/2025 1:17 PM [facility] Blood BLOOD SPECIMEN / Unknown [facility] / Unknown 05/07/2025 10:50 AM CDT 05/07/2025 10:50 AM CDT us Rosie Chilel MD CHEMISTRY Final Resul t Performing Organization Address City/[facility]/ZIP Co de Phone Number [facility] [address] [place] [address] * (ABNORMAL) POCT Hemoglobin A1C Monitoring (05/06/2025 3:52 PM CDT) POC HEMOGLOBIN A1C 7.4(H) <6.0 % OF TOTAL HGB 05/06/2025 4:12 PM CDT [facility] Comment: Any point of care results exhibiting inconsistency with the patient's clinical status should be repeated using a different testing method. Blood BLOOD SPECIMEN / Unknown [facility] / Unknown 05/06/2025 3:52 PM CDT 05/06/2025 3:52 PM CDT us Rosie Chilel MD CHEMISTRY Final Resul t Performing Organization Address [facility]/ZIP Co de Phone Number [facility] [address] [place] [address], [place] [phone] [facility] [address] [place] [address], [place] [phone] * SCAN-DIAGNOSTIC REPORT (04/13/2025 12:00 AM CDT) us Scanner OTHER Final Result * (ABNORMAL) ANTINUCLEAR ANTIBODY BY IFA (04/02/2025 10:54 AM CDT) DONELL SCREEN, IFA POSITIVE(A) NEGATIVE 04/04/20 6:50 AM CDT [facility] Comment: DONELL IFA is a first line screen for detecting the presence of up to approximately 150 autoantibodies in various autoimmune diseases. A positive DONELL IFA result is suggestive of autoimmune disease and reflexes to titer and pattern. Further laboratory testing may be considered if clinically indicated. For additional information, please refer to http://education.[employer]/faq/JZY172 (This link is being provided for informational/ educational purposes only.) DONELL TITER 1:640(H) titer 04/04/2025 6:50 AM CDT [facility] Comment: Reference Range <1:40 Negative 1:40-1:80 Low Antibody Level >1:80 Elevated Antibody Level DONELL PATTERN Mitotic(A) 04/04/2025 6:50 AM CDT [facility] Comment: The presence of mitotic fluorescence was noted on the HEp-2 slide. Other reactivities (e.g., anti-mitotic spindle apparatus antigens) may be responsible for this fluorescence. The clinical significance of this finding is uncertain. Clinical correlation is recommended. AC-24 to AC-28: Mitotic International Consensus on DONELL Patterns (https://doi.org/10.1515/zrdj-0681-6002) DONELL TITER 1:320(H) titer 04/04/2025 6:50 AM CDT [facility] Comment: Reference Range <1:40 Negative 1:40-1:80 Low Antibody Level >1:80 Elevated Antibody Level DONELL PATTERN Cytoplasmic, Fibrillar Filamentous( A) 04/04/2025 6:50 AM CDT [facility] Comment: Staining of microtubules and intermediate filaments spreading from the nuclear rim (e.g., anti-cytokeratin, anti-vimentin, anti-tropomyosin). Pattern can be found in infectious or inflammatory conditions, long-term hemodialysis, alcoholic liver disease, systemic autoimmune rheumatic diseases (SARD), psoriasis, and in healthy persons. AC-16: Fibrillar Filamentous International Consensus on DONELL Patterns (https://doi.org/10.1515/oeyf-8425-8638) Blood BLOOD SPECIMEN / Unknown [facility] / Unknown 04/02/2025 10:54 AM CDT 04/02/2025 10:54 AM CDT us Shawn Garner MD CHEMISTRY Fin al Result [facility] [place] [id number] [place] [address], * CLINICAL DIETETIC TECHNICIAN ANTIBODY (04/02/2025 10:54 AM CDT) CLINICAL DIETETIC TECHNICIAN ANTIBODY <1.0 NEG <1.0 NEG AI 04/03/2025 2:33 PM CDT [facility] Blood BLOOD SPECIMEN / Unknown [facility] / Unknown 04/02/2025 10:54 AM CDT 04/02/2025 10:54 AM CDT us Shawn Garner MD SEND OUTS Fin al Result Performing Organization Address [facility] Co de Phone Number [facility] [address] [address], * ANTI-FOREMAN (04/02/2025 10:54 AM CDT) SM ANTIBODY <1.0 NEG <1.0 NEG AI 04/03/2025 2:33 PM CDT [facility] Blood BLOOD SPECIMEN / Unknown [facility] / Unknown 04/02/2025 10:54 AM CDT 04/02/2025 10:54 AM CDT Shawn Garner MD SEND OUTS Fin al Result Performing Organization Address [facility] de Phone Number [facility] [address] [address], * SJOGRENS ANTIBODIES (04/02/2025 10:54 AM CDT) SJOGREN'S ANTIBODY (SS-B) <1.0 NEG <1.0 NEG AI 04/03/2025 2:33 PM CDT [facility] SJOGREN'S ANTIBODY (SS-A) <1.0 NEG <1.0 NEG AI 04/03/2025 2:33 PM CDT [facility] Blood BLOOD SPECIMEN / Unknown [facility] / Unknown 04/02/2025 10:54 AM CDT 04/02/2025 10:54 AM CDT us Shawn Garner MD SEND OUTS Fin al Result Performing Organization Address [facility] de Phone Number [facility] [address] [address], * BETA 2 GLYCOPROTEIN I PAT (04/02/2025 10:54 AM CDT) [facility] Signature B2 GLYCOPROTEIN I (IGG)AB <2.0 U/mL 04/04/2025 2:48 AM CDT [facility] Comment: Value Interpretation ----- < 20.0 Antibody not detected > or = 20.0 Antibody detected The antiphospholipid antibody syndrome (APS) is a clinical-pathologic correlation that includes a clinical event (e.g. arterial or venous thrombosis, morbidity) and persistent positive antiphospholipid antibodies (IgM, IgG Cardiolipin or b2GPI antibodies greater than the 99th percentile; or a lupus anticoagulant). International consensus guidelines for APS suggest waiting at least 12 weeks before retesting to confirm antibody persistence. The [facility] Lup[facility] immunological classification criteria for systemic lupus erythematosus (SLE) include testing for isotype IgA, which has yet to be incorporated into APS criteria. Low level antiphospholipid antibodies may sometimes be detected in the setting of infection, drug therapy or aging. For additional information, please refer to http://education.Shareholder InSite/faq/QOA626 (This link is being provided for informational/ educational purposes only.) B2 GLYCOPROTEIN I (IGM)AB 5.7 U/mL 04/04/2025 2:48 AM CDT [facility] Comment: Value Interpretation ----- < 20.0 Antibody not detected > or = 20.0 Antibody detected The antiphospholipid antibody syndrome (APS) is a clinical-pathologic correlation that includes a clinical event (e.g. arterial or venous thrombosis, morbidity) and persistent positive antiphospholipid antibodies (IgM, IgG Cardiolipin or b2GPI antibodies greater than the 99th percentile; or a lupus anticoagulant). International consensus guidelines for APS suggest waiting at least 12 weeks before retesting to confirm antibody persistence. The [facility] Lupus [facility] immunological classification criteria for systemic lupus erythematosus (SLE) include testing for isotype IgA, which has yet to be incorporated into APS criteria. Low level antiphospholipid antibodies may sometimes be detected in the setting of infection, drug therapy or aging. For additional information, please refer to http://IndigoVision.[employer]holder InSite/faq/RKE974 (This link is being provided for informational/ educational purposes only.) B2 GLYCOPROTEIN I (IGA)AB <2.0 U/mL 04/04/2025 2:48 AM CDT [facility] Comment: Value Interpretation ----- < 20.0 Antibody not detected > or = 20.0 Antibody detected The antiphospholipid antibody syndrome (APS) is a clinical-pathologic correlation that includes a clinical event (e.g. arterial or venous thrombosis, morbidity) and persistent positive antiphospholipid antibodies (IgM, IgG Cardiolipin or b2GPI antibodies greater than the 99th percentile; or a lupus anticoagulant). International consensus guidelines for APS suggest waiting at least 12 weeks before retesting to confirm antibody persistence. The [facility] Lup[facility] immunological classification criteria for systemic lupus erythematosus (SLE) include testing for isotype IgA, which has yet to be incorporated into APS criteria. Low level antiphospholipid antibodies may sometimes be detected in the setting of infection, drug therapy or aging. For additional information, please refer to http://IndigoVision.[employer]holder InSite/faq/ONV661 (This link is being provided for informational/ educational purposes only.) Blood BLOOD SPECIMEN / Unknown [facility] / Unknown 04/02/2025 10:54 AM CDT 04/02/2025 10:54 AM CDT Shawn Garner MD SEND OUTS Fin al Result [facility] [address] [place] [address], * CARDIOLIPIN ANTIBODY (04/02/2025 10:54 AM CDT) Pathologist [facility] CARDIOLIPIN AB (IGA) 2.3 APL-U/mL 03/20 2:48 AM CDT [facility] Comment: Value Interpretation ----- < 20.0 Antibody not detected > or = 20.0 Antibody detected CARDIOLIPIN AB (IGG) <2.0 GPL-U/mL 03/20 2:48 AM CDT [facility] Comment: Value Interpretation ----- < 20.0 Antibody not detected > or = 20.0 Antibody detected CARDIOLIPIN AB (IGM) 7.5 MPL-U/mL 03/20 2:48 AM CDT [facility] Comment: Value Interpretation ----- < 20.0 Antibody not detected > or = 20.0 Antibody detected The antiphospholipid antibody syndrome (APS) is a clinical-pathologic correlation that includes a clinical event (e.g. arterial or venous thrombosis, morbidity) and persistent positive antiphospholipid antibodies (IgM, IgG Cardiolipin or b2GPI antibodies greater than the 99th percentile; or a lupus anticoagulant). International consensus guidelines for APS suggest waiting at least 12 weeks before retesting to confirm antibody persistence. The [facility] Lup[facility] immunological classification criteria for systemic lupus erythematosus (SLE) include testing for isotype IgA, which has yet to be incorporated into APS criteria. Low level antiphospholipid antibodies may sometimes be detected in the setting of infection, drug therapy or aging. For additional information, please refer to http://education.Shareholder InSite/faq/NMZ458 (This link is being provided for informational/ educational purposes only.) Blood BLOOD SPECIMEN / Unknown [facility] / Unknown 04/02/2025 10:54 AM CDT 04/02/2025 10:54 AM CDT us Shawn Garner MD SEND OUTS Fin al Result [facility] [place] [facility] [address] [place] [address], * LUPUS ANTICOAGULANT (04/02/2025 10:54 AM CDT) LUPUS ANTICOAGULANT SEE NOTE NOT DETECTED 04/03/2025 8:07 PM CDT [facility] Comment: A Lupus Anticoagulant is not detected. For more information on this test, go to: http://education.Shareholder InSite/faq/KWR77g9 (This link is being provided for informational/ educational purposes only.) This interpretation is based on the following test results: PTT-LA SCREEN 33 < OR = 40 sec 04/03/2025 8:07 PM CDT [facility] DRVVT SCREEN 40 < OR = 45 sec 04/03/2025 8:07 PM CDT [facility] Blood BLOOD SPECIMEN / Unknown [facility] / Unknown 04/02/2025 10:54 AM CDT 04/02/2025 10:54 AM CDT us Shawn Garner MD SEND OUTS Fin al Result Performing Organization Address [facility] de Phone Number [facility] [address] [address], [place] [phone] * IRON PLUS IRON BINDING CAP (04/02/2025 10:54 AM CDT) [facility] IRON, TOTAL 50 45 - 160 mcg/dL 04/03/2025 4:48 AM CDT [facility] IRON BINDING CAPACITY 315 250 - 450 mcg/dL (calc) 04/03/2025 4:48 AM CDT [facility] % SATURATION 16 16 - 45 % (calc) 04/03/2025 4:48 AM CDT [facility] Blood BLOOD SPECIMEN / Unknown [facility] / Unknown 04/02/2025 10:54 AM CDT 04/02/2025 10:54 AM CDT us Shawn Garner MD CHEMISTRY Fin al Result Performing Organization Address [facility] Co de Phone Number [facility] [address] [address], [place] [phone] * HBSAG (HBS) (04/02/2025 10:54 AM CDT) HEPATITIS B SURFACE ANTIGEN NON-REACT ERCI NON-REACT ERIC 04/03/2025 10:10 AM CDT [facility] Comment: For additional information, please refer to http://PsyQic/faq/EWE378 (This link is being provided for informational/ educational purposes only.) Blood BLOOD SPECIMEN / Unknown [facility] / Unknown 04/02/2025 10:54 AM CDT 04/02/2025 10:54 AM CDT us Shawn Garner MD SEND OUTS Fin al Result Performing Organization Address [facility] de Phone Number [facility] [address] [address], * ANTI HCV (04/02/2025 10:54 AM CDT) HEPATITIS C ANTIBODY NON-REACT ERIC NON-REACT ERIC 04/03/2025 10:56 AM CDT [facility] Comment: HCV antibody was non-reactive. There is no laboratory evidence of HCV infection. In most cases, no further action is required. However, if recent HCV exposure is suspected, a test for HCV RNA (test code 69848) is suggested. For additional information please refer to http://IndigoVision.Shareholder InSite/faq/OCM55w9 (This link is being provided for informational/ educational purposes only.) Blood BLOOD SPECIMEN / Unknown [facility] / Unknown 04/02/2025 10:54 AM CDT 04/02/2025 10:54 AM CDT us Shawn Garner MD SEND OUTS Fin al Result Performing Organization Address [place]/[facility] de Phone Number [facility] [address] [address], * THYROPEROXIDASE ANTIBODY (04/02/2025 10:54 AM CDT) THYROID PEROXIDASE ANTIBODIES <1 <9 IU/mL 04/03/2025 2:37 PM CDT [facility] Blood BLOOD SPECIMEN / Unknown [facility] / Unknown 04/02/2025 10:54 AM CDT 04/02/2025 10:54 AM CDT us Shawn Garner MD SEND OUTS Fin al Result Performing Organization Address City/[facility]/ZIP Co de Phone Number [facility] [address] [address], [place] [phone] * C3 COMPLEMENT (04/02/2025 10:54 AM CDT) COMPLEMENT COMPONENT C3C 149 83 - 193 mg/dL 04/03/2025 5:35 PM CDT [facility] Blood BLOOD SPECIMEN / Unknown [facility] / Unknown 04/02/2025 10:54 AM CDT 04/02/2025 10:54 AM CDT us Shawn Garner MD CHEMISTRY Fin al Result Performing Organization Address [facility] Co de Phone Number [facility] [address] [address], [place] [phone] * C4 COMPLEMENT (04/02/2025 10:54 AM CDT) COMPLEMENT COMPONENT C4C 24 15 - 57 mg/dL 04/03/2025 5:35 PM CDT [facility] Blood BLOOD SPECIMEN / Unknown [facility] / Unknown 04/02/2025 10:54 AM CDT 04/02/2025 10:54 AM CDT us Shawn Garner MD CHEMISTRY Fin al Result Performing Organization Address City/[facility]/ZIP Co de Phone Number [facility] [address] [address], * (ABNORMAL) IN CLINIC UA w/ Sediment Exam Reflexed per Criteria (04/02/2025 10:54 AM CDT) COLOR YELLOW YELLOW 04/02/2025 11:[address] [facility] SPECIFIC GRAVITY 1.015 1.001 - 1.035 04/02/2025 11:[address] [facility] PH 6.0 5.0 - 8.0 04/02/2025 11:[address] [facility] PROTEIN NEGATIVE NEGATIVE 04/02/2025 11:[address] [facility] GLUCOSE 2+(A) NEGATIVE 04/02/2025 11:[address] [facility] KETONES NEGATIVE NEGATIVE 04/02/2025 11:[address] [facility] BILIRUBIN NEGATIVE NEGATIVE 04/02/2025 11:[address] [facility] OCCULT BLOOD TRACE(A) NEGATIVE 04/02/2025 11:[address] [facility] NITRITE NEGATIVE NEGATIVE 04/02/2025 11:[address] [facility] LEUKOCYTE ESTERASE NEGATIVE NEGATIVE 04/02/2025 11:[address] [facility] APPEARANCE CLEAR CLEAR 04/02/2025 11:[address] [facility] WBC UA 0-5 < OR = 5 /HPF 04/02/2025 11:[address] [facility] RBC UA 0-2 < OR = 2 /HPF 04/02/2025 11:[address] [facility] SQUAMOUS EPITHELIAL CELLS UA 6-10(A) < OR = 5 /HPF 04/02/2025 11:[address] [facility] BACTERIA UA FEW(A) NONE SEEN /HPF 04/02/2025 11:[address] [facility] NOTE UA SEE NOTE 04/02/2025 11:[address] [facility] Comment: This urine was analyzed for the presence of WBC, RBC, bacteria, casts, and other formed elements. Only those elements seen were reported. Urine URINE SPECIMEN / Unknown Non-Blood / Unknown 04/02/2025 10:54 AM CDT 04/02/2025 10:54 AM CDT us Shawn Garner MD URINE Fin al Result Performing Organization Address City/[facility]/ZIP Co de Phone Number [facility] [address] [place] [address], [place] [phone] [facility] [address] [place] [address], * ANTI HBC (04/02/2025 10:54 AM CDT) HEPATITIS B CORE AB TOTAL NON-REACT ERIC NON-REACT ERIC 04/03/2025 10:56 AM CDT [facility] Comment: For additional information, please refer to http://education.Shareholder InSite/faq/AZG083 (This link is being provided for informational/ educational purposes only.) Blood BLOOD SPECIMEN / Unknown [facility] / Unknown 04/02/2025 10:54 AM CDT 04/02/2025 10:54 AM CDT us Shawn Garner MD SEND OUTS Fin al Result Performing Organization Address City/[facility]/ZIP Co de Phone Number [facility] [address] [place] [address], [place] [phone] * DNA DOUBLE-STRANDED (DSDNA) ANTIBODIES BY CRITHIDIA LUCILIARiki IFA (04/02/2025 10:54 AM CDT) DNA (DS) ANTIBODY 4 IU/mL 025 2:33 PM CDT [facility] Comment: IU/mL Interpretation < or = 4 Negative 5-9 Indeterminate > or = 10 Positive Blood BLOOD SPECIMEN / Unknown [facility] / Unknown 04/02/2025 10:54 AM CDT 04/02/2025 10:54 AM CDT us Shawn Garner MD SEND OUTS Fin al Result Performing Organization Address [facility] Co de Phone Number [facility] [address] [place] [address], [place] [phone] * FERRITIN (04/02/2025 10:54 AM CDT) FERRITIN 66 16 - 288 ng/mL 04/03/2025 6:44 AM CDT [facility] Blood BLOOD SPECIMEN / Unknown [facility] / Unknown 04/02/2025 10:54 AM CDT 04/02/2025 10:54 AM CDT us Shawn Garner MD CHEMISTRY Fin al Result Performing Organization Address [place]/[facility] de Phone Number [facility] [address] [address], [place] [phone] * CK TOTAL (04/02/2025 10:54 AM CDT) CREATINE KINASE, TOTAL 120 20 - 243 U/L 04/03/2025 4:48 AM CDT [facility] Blood BLOOD SPECIMEN / Unknown [facility] / Unknown 04/02/2025 10:54 AM CDT 04/02/2025 10:54 AM CDT us Shawn Garner MD CHEMISTRY Fin al Result Performing Organization Address [facility] de Phone Number [facility] [address] [address], [place] [phone] * CT CARDIAC CORONARY ARTERIES CV DUAL READ (03/25/2025 10:32 AM CDT) Anatomical Region Laterality Modality HEART Computed Tomogra phy 03/25/2025 10:0 7 AM CDT Narrative 03/25/2025 2:41 PM CDT [facility] Cardiac CT Report Name: ROCÍO RUBIO : Scan Date: Accession Number: [id number] Status: Final Electronically signed by Randy Rosario 14:20:21 VITALS HEIGHT: 66 in (168 cm) WEIGHT: 208 lbs (94 kgs) BSA: 2.03 m^2 BMI: 34 kg/m^2 BP: 118 / 63 mmHg BASELINE HR: 65 BPM HEART RHYTHM: Normal Sinus Rhythm FINAL IMPRESSION 1) Diffuse multivessel coronary atherosclerosis without significant stenosis. - Total coronary artery calcium score 357. KLINE percentile based on age, gender, and race is 98. Please refer to Radiology report for non-cardiovascular findings. RECOMMENDATIONS: - Risk factor modification for coronary atherosclerosis is advised. - Patient exhibits elevated coronary atherosclerosis burden and will likely benefit from aggressive risk factor modification. STUDY QUALITY: Study quality is good. CAD-RADS: CAD-RADS Classification 1 (<25% stenosis). CALCIUM SCORING: Total coronary artery calcium score 357. KLINE percentile based on age, gender, and race is 98. DOMINANCE: Right dominant coronary artery system. LM: The LM is normal. LAD: The proximal LAD has partially calcified atherosclerosis. There is a <25% proximal LAD stenosis. The mid LAD has calcified atherosclerosis. There is a <25% mid LAD stenosis. There is no distal LAD stenosis. D1: The first diagonal is normal. D2: The second diagonal is normal. LCX: The proximal LCx has calcified atherosclerosis. There is a <25% proximal LCx stenosis. The mid LCx has calcified atherosclerosis. There is a <25% mid LCx stenosis. There is no distal LCx stenosis. OM1: The first obtuse marginal is normal. OM2: The second obtuse marginal has calcified atherosclerosis. There is a <25% second obtuse marginal stenosis. RCA: The proximal RCA has partially calcified atherosclerosis. There is a <25% proximal RCA stenosis. The mid RCA has calcified atherosclerosis. There is a <25% mid RCA stenosis. There is no distal RCA stenosis. RIGHT PDA: The right PDA is normal. RIGHT PLB: The right posterolateral branch is normal. OTHER FINDINGS: - Normal aortic root size. Visualized thoracic aorta has normal caliber. - No LA/CECILIO thrombus. Normal pulmonary venous return. CALCIUM SCORING TABLE . . Number of Lesions Pattern of Calcium Volume Total Score +-------+ + +--------+ + LM 0 0 LAD 0 20 LCx 0 186 RCA 0 151 Ramus 0 0 '-------+ + +--------+ ' SCAN INFO TEST TYPE: Calcium score, Coronary CT Angiography SCANNER SPRAY PILOT: SIEMENS SCANNER MODEL: Bee Shield DOSE REDUCTION ALGORITHM: Helical with dose modulation PHASE UNITS: % START PHASE: 65 % END PHASE: 75 % EKG GATED: Yes PRE-CONTRAST: Yes POST-CONTRAST: Yes 3D RECONSTRUCTION: Yes PACEMAKER DEVICE: No GENERAL CONTRAST AGENT CONTRAST AGENT USED?: Yes TYPE: Omnipaque 350 DOSE: 105 ml RATE: 6.5 ml/s ROUTE: IV ARM: Right BOLUS TECHNIQUE: Biphasic ADVERSE REACTION: No SERUM CREATININE: 1.21 mg/dL GFR: 47.61 ml/min/1.73m^2 CREATININE DATE: CT CONTRAST REACTION: None CONTRAST/SALINE ADMINISTRATION: Blended CONTRAST TIMING: Bolus Tracking Method MEDICATION ADMINISTERED DURING SCAN TYPE: Nitroglycerin, sublingual NITROGLYCERIN, TOTAL DOSE: 0.8 mg RADIATION DOSE DLP: 746 KV: 120 SETUP PATIENT TYPE: Outpatient REASON(S) FOR SCAN: Chest pain, Shortness of breath, Other... OTHER, SPECIFY:: bilateral leg edema REFERRING PHYSICIAN: ROSIE CHILEL TECHNOLOGIST: Gloria Dalton Patient Account [id number] ICD10 Codes R60.0, R06.09 Report generated by [employer], a product of [employer] us Rosie Chilel MD CT Final Resul t * CT CARDIAC CORONARY ARTERIES RAD DUAL READ (03/25/2025 10:32 AM CDT) Anatomical Region Laterality Modality HEART Computed Tomogra phy 03/25/2025 11:4 2 AM CDT Impressions 03/25/2025 11:42 AM CDT : 1. See separate cardiology report for cardiovascular findings. 2. A few scattered indeterminate pulmonary nodules measuring up to 6 millimeters in the middle lobe. Recommend unenhanced chest CT in 3-6 months to document stability and assess underlying malignant potential. 3. Prominent lower paraesophageal lymph node measuring up to 10 millimeters. Attention on follow-up exams. Please note that all CT scans at this facility use dose modulation, iterative reconstruction, and/or weight-based dosing when appropriate to reduce radiation dose to as low as reasonably achievable. Dictated by Duane Estes MD @ 03/25/2025 11:42:28 AM (Electronically Signed) Narrative 03/25/2025 11:42 AM CDT For Patients: As a result of the Cures Act, medical imaging exams and procedure reports are released immediately into your electronic medical record. You may view this report before your referring provider. If you have questions, please contact your health care provider. THIS IS THE RADIOLOGY OVER READ REPORT OF A DUAL READ STUDY. READ THE SEPARATE CARDIOLOGY REPORT FOR CARDIOVASCULAR FINDINGS. REPORTS MAY BE FINALIZED AT DIFFERENT TIMES. COMPARISON: : None. TECHNIQUE: : Please see cardiology report for technical information. This exam is being performed in conjunction with the services provided by the [facility] ([facility]). INDICATION: Cardiac over-read. Extracardiac findings: : Lungs: A few scattered indeterminate pulmonary nodules measuring up to 6 millimeters in the middle lobe. Recommend unenhanced chest CT in 3-6 months to document stability and assess underlying malignant potential. Pleural spaces: No pleural effusion or pneumothorax where visualized. Extracardiac mediastinum: Prominent lower paraesophageal lymph node measuring up to 10 millimeters. Upper abdomen: Visualized portions of the upper abdomen show no acute process. Bones and soft tissues: No discrete acute process within the osseous structures or soft tissues. Procedure Note Duane Estes MD - 03/25/2025 For Patients: As a result of the Cures Act, medical imagingexams and procedure reports are released immediately into your electronicmedical record. You may view this report before your referring provider.If you have questions, please contact your health care provider. THIS IS THE RADIOLOGY OVER READ REPORT OF A DUAL READ STUDY. READ THESEPARATE CARDIOLOGY REPORT FOR CARDIOVASCULAR FINDINGS. REPORTS MAY BEFINALIZED AT DIFFERENT TIMES. COMPARISON: : None. TECHNIQUE: : Please see cardiology report for technical information. This exam is being performed in conjunction with the services provided bythe [facility] ([facility]). INDICATION: Cardiac over-read. Extracardiac findings: : Lungs: A few scattered indeterminate pulmonary nodules measuring up to 6millimeters in the middle lobe. Recommend unenhanced chest CT in 3-6months to document stability and assess underlying malignant potential. Pleural spaces: No pleural effusion or pneumothorax where visualized. Extracardiac mediastinum: Prominent lower paraesophageal lymph nodemeasuring up to 10 millimeters. Upper abdomen: Visualized portions of the upper abdomen show no acuteprocess. Bones and soft tissues: No discrete acute process within the osseousstructures or soft tissues. IMPRESSION: : 1. See separate cardiology report for cardiovascular findings. 2. A few scattered indeterminate pulmonary nodules measuring up to 6millimeters in the middle lobe. Recommend unenhanced chest CT in 3-6months to document stability and assess underlying malignant potential. 3. Prominent lower paraesophageal lymph node measuring up to 10millimeters. Attention on follow-up exams. Please note that all CT scans at this facility use dose modulation,iterative reconstruction, and/or weight-based dosing when appropriate toreduce radiation dose to as low as reasonably achievable. Dictated by Duane Estes MD @ 03/25/2025 11:42:28 AM (Electronically Signed) us Rosie Chilel MD CT Final Resul t * ECHO TTE COMPLETE WO CONTRAST (03/25/2025 9:12 AM CDT) AORTIC VALVE MEAN PG 5 mmHg LVEDD 4.2 cm EJECTION FRACTION 60 - 65% Anatomical Region Laterality Modality Ultrasound 03/25/2025 8:40 AM CDT Narrative 03/25/2025 9:26 AM CDT ECHOCARDIOGRAM ROCÍO RUBIO : 1960 64 years Study Date: 03/25/2025 8:40:25 AM Gender: F BP: 138/72 mmHg Height: 167.64 cm BSA: 2.03 m Weight: 94.35 kg Tech: PATRICIA Referring MD: ROSIE CHILEL Site: [facility] Reading Location: [facility] [address] Patient Location: Outpatient. Procedure: 2D, Color Doppler and Spectral Doppler. Indication for study: Edema, SOB Cardiac Rhythm: Normal sinus.Study quality: Good. Final Impressions: 1. Normal LV size, normal wall thickness, normal global systolic function with an estimated EF of 60 - 65%. 2. Grade 2 pattern of LV diastolic filling. 3. Right ventricular cavity size is normal, global systolic RV function is normal. 4. No significant valve disease detected. Comparison Compared to prior exam of 03/27/2023, there has been no significant change. Chamber Sizes and Function Normal left ventricular size, normal wall thickness, normal global systolic function with an estimated EF of 60 - 65%. No resting regional wall motion abnormality visualized. Left atrial size is moderately enlarged. Left atrial pressure is increased. Right ventricular cavity size is normal, global systolic RV function is normal. RV wall thickness is normal. The right atrium is normal. The pulmonary artery is of normal size and origin. The sinus of Valsalva is normal sized. The ascending aorta is normal sized. Valves, RV Pressures and Diastolic Function The aortic valve is normal in structure and trileaflet, no stenosis and no regurgitation. The mitral valve is normal in structure, trace mitral regurgitation. Spectral Doppler shows Grade 2 pattern of LV diastolic filling. The tricuspid valve is normal in structure, trace tricuspid regurgitation. Unable to assess right ventricular systolic pressure. The pulmonic valve is normal. Trace pulmonary regurgitation. Masses, Effusion, Shunts There is no pericardial effusion. The inferior vena cava is normal sized, respiratory size variation greater than 50%. No left to right shunting was detected by limited color flow Doppler interrogation of the interatrial septum. MEASUREMENTS AND CALCULATIONS 2-D Measurements and LV Function: LVID (d) 4.2 cm LV FS% (2D) 48 % LVID (s) 2.2 cm LVOT diameter 2.3 cm IVS (d) 1.2 cm HR 61 bpm LVPW (d) 1.0 cm LA Vol index 44 ml/m2 Ao Sinus 3.5 cm RV Basal Diam 3.3 cm Ao Sinus ULN 3.8 cm * Asc Ao 3.4 cm Asc Ao ULN 3.9 cm * * Input BSA outside of range, reported values correspond to BSA = 1.9 Diastology: Mitral Tissue Doppler E Peak 0.9 m/s e', Septum 0.06 m/s A Peak 0.7 m/s e', Lateral 0.10 m/s E/A 1.2 E/e' Average 11.68 DT 208 msec Aortic Valve: Vmax 1.5 m/s ALCIDES (V) 3.50 cm VTI 0.33 m ALCIDES (I) 3.47 cm LVOT V max 1.3 m/s Max PG 9 mmHg LVOT VTI 0.27 m Mean PG 5 mmHg SV 113 ml Dim Index 0.83 SV index 56 ml/m CO 6.9 l/min CI 3.4 l/min/m Mitral Valve: MVA 3.6 cm MV P 1/2 60 msec Tricuspid Valve and estimated PA pressures: TAPSE 2.5 cm . This study was interpreted by an [facility] accredited facility. Final Procedure Note Abelardo Butcher MD - 03/25/2025 ECHOCARDIOGRAM ROCÍO RUBIO : 1960 64 years Study Date: 03/25/2025 8:40:25 AM Gender: F BP: 138/72 mmHg Height: 167.64 cm BSA: 2.03 m Weight: 94.35 kg Tech: [facility] Referring MD: ROSIE CHILEL Site: [facility] Reading Location: [facility] [address] Patient Location: Outpatient. Procedure: 2D, Color Doppler and Spectral Doppler. Indication for study: Edema, SOB Cardiac Rhythm: Normal sinus.Study quality: Good. Final Impressions: 1. Normal LV size, normal wall thickness, normal global systolic functionwith an estimated EF of 60 - 65%. 2. Grade 2 pattern of LV diastolic filling. 3. Right ventricular cavity size is normal, global systolic RV functionis normal. 4. No significant valve disease detected. Comparison Compared to prior exam of 03/27/2023, there has been no significantchange. Chamber Sizes and Function Normal left ventricular size, normal wall thickness, normal globalsystolic function with an estimated EF of 60 - 65%. No resting regionalwall motion abnormality visualized. Left atrial size is moderatelyenlarged. Left atrial pressure is increased. Right ventricular cavity sizeis normal, global systolic RV function is normal. RV wall thickness isnormal. The right atrium is normal. The pulmonary artery is of normal sizeand origin. The sinus of Valsalva is normal sized. The ascending aorta isnormal sized. Valves, RV Pressures and Diastolic Function The aortic valve is normal in structure and trileaflet, no stenosis and noregurgitation. The mitral valve is normal in structure, trace mitralregurgitation. Spectral Doppler shows Grade 2 pattern of LV diastolicfilling. The tricuspid valve is normal in structure, trace tricuspidregurgitation. Unable to assess right ventricular systolic pressure. Thepulmonic valve is normal. Trace pulmonary regurgitation. Masses, Effusion, Shunts There is no pericardial effusion. The inferior vena cava is normal sized,respiratory size variation greater than 50%. No left to right shunting wasdetected by limited color flow Doppler interrogation of the interatrialseptum. MEASUREMENTS AND CALCULATIONS 2-D Measurements and LV Function: LVID (d) 4.2 cm LV FS% (2D) 48% LVID (s) 2.2 cm LVOT diameter2.3 cm IVS (d) 1.2 cm HR 61bpm LVPW (d) 1.0 cm LA Vol index 44ml/m2 Ao Sinus 3.5 cm RV Basal Diam3.3 cm Ao Sinus ULN 3.8 cm * Asc Ao 3.4 cm Asc Ao ULN 3.9 cm * * Input BSA outside of range, reported values correspond to BSA = 1.9 Diastology: Mitral Tissue Doppler E Peak 0.9 m/s e', Septum 0.06 m/s A Peak 0.7 m/s e', Lateral 0.10 m/s E/A 1.2 E/e' Average 11.68 DT 208 msec Aortic Valve: Vmax 1.5 m/s ALCIDES (V) 3.50 cm VTI 0.33 m ALCIDES (I) 3.47 cm LVOT V max 1.3 m/s Max PG 9 mmHg LVOT VTI 0.27 m Mean PG 5 mmHg SV 113 ml Dim Index 0.83 SV index 56 ml/m CO 6.9 l/min CI 3.4 l/min/m Mitral Valve: MVA 3.6 cm MV P 1/2 60 msec Tricuspid Valve and estimated PA pressures: TAPSE 2.5 cm . This study was interpreted by an [facility] accredited facility. Final Rosie Chilel MD ECHO ORD Final Resul t * EKG 12 LEAD (03/24/2025 8:33 AM CDT) us Rosie Chilel MD EKG ORD Final Resul t * TN READING EKG - NO CHARGE, COMP ONLY (03/24/2025 8:32 AM CDT) Rosie Chilel MD PB - PROVIDER READINGS Clara l Result * (ABNORMAL) PRO-BNP (03/24/2025 8:26 AM CDT) Pathologist [facility] NT PROBNP 145(H) <125 pg/mL [facility] Jesus Blood BLOOD SPECIMEN / Unknown 03/24/2025 8:26 AM CDT 03/24/2025 8:27 AM CDT Rosie Chilel MD SEND OUTS Final Resul t [facility] [address] [place] [address], [place] [facility] [address] [place] [address] * PROTEIN/CREAT RATIO,URINE (03/24/2025 8:25 AM CDT) Pathologist [facility] PROTEIN QUANT,RAND URINE 9 1 - 14 mg/dL 03/24/2025 1:58 PM CDT [facility] CREAT,RANDOM URINE 69.9 28.0 - 217.0 mg/dL 03/24/2025 1:58 PM CDT [facility] PROT/CREAT RATIO,UR 0.1 <0.2 03/24/2025 1:58 PM CDT [facility] Urine URINE SPECIMEN / Unknown Non-Blood / Unknown 03/24/2025 8:25 AM CDT 03/24/2025 8:25 AM CDT Rosie Chilel MD URINE Final Resul t Performing Organization Address City/[facility]/ZIP Co de Phone Number [facility] [address] [place] [address], [place] * (ABNORMAL) URINE ALBUMIN TO CREATININE RATIO, RANDOM (03/24/2025 8:25 AM CDT) ALB RAND URINE 26.8 mg/L 03/24/2025 3:04 PM CDT [facility] CREATININE,URIN E 0.70 g/L 03/24/2025 3:04 PM CDT [facility] ALBUMIN TO CREATININE RATIO,RAND UR 38.3(H) <30.0 mg/g creat 03/24/2025 3:04 PM CDT [facility] Urine URINE SPECIMEN / Unknown Non-Blood / Unknown 03/24/2025 8:25 AM CDT 03/24/2025 8:25 AM CDT Narrative [facility] - 03/24/2025 3:04 PM CDT If Albumin to Creatinine Ratio is elevated, consider the following: Elevations seen with incipient nephropathy associated with diabetes mellitus or hypertension. Stress, exercise,hematuria, and urinary tract infection may also produce elevated results. If clinically indicated, confirm with 24 Hour Albumin to Creatinine Ratio. us Rosie Chilel MD URINE Final Resul t Performing Organization Address City/[facility]/ZIP Co de Phone Number [facility] [address] [place] [address], [place] * LDL CHOLESTEROL,DIRECT (07/30/2024 3:28 PM PROCESS ENG) DIRECT LDL 59 <100 mg/dL [facility] Comment: Desirable range <100 mg/dL for primary prevention; <70 mg/dL for patients with CHD or diabetic patients with > or = 2 CHD risk factors. Blood BLOOD SPECIMEN / Unknown 07/30/2024 3:28 PM PROCESS ENG 07/30/2024 3:28 PM PROCESS ENG Rosie Chilel MD CHEMISTRY Final Resul t [facility] [place] [address] [address], [facility] [address] [address] [address] * XR MAMMO MARK ANTHONY BILAT SCREEN (07/21/2024 4:36 PM PROCESS ENG) Anatomical Region Laterality Modality BREASTS, Breast Left, Breast Right Bilateral Mammography Impressions 07/23/2024 3:38 PM PROCESS ENG There is no radiographic evidence for malignancy. Recommend annual mammograms. MAMMOGRAM ASSESSMENT: ACR 2 Benign PATIENTS: You will also receive a letter with your examination results in an easy to read format. If you have questions about your results, please contact your referring provider. Narrative 07/23/2024 3:38 PM PROCESS ENG For Patients: As a result of the Century Cures Act, medical imaging exams and procedure reports are released immediately into your electronic medical record. You may view this report before your referring provider. If you have questions, please contact your health care provider. XR MAMMO MARK ANTHONY BILAT SCREEN [[id number]] CLINICAL HISTORY: This is an asymptomatic 63 y.o. patient. INDICATION FOR EXAM: Mammogram Screening. TECHNIQUE: CC & MLO views were obtained. This study was evaluated with the assistance of Computer-Aided Detection. Breast Tomosynthesis was used in interpretation. COMPARISON FILMS: Yes 07/13/23 [facility] 07/12/22 [employer] FINDINGS: There are scattered areas of fibroglandular density. No suspicious masses or microcalcifications. There are benign appearing calcifications.. Rosie Chilel MD MAMMO Final Resul t * COLONOSCOPY (08/10/2023 7:45 AM PROCESS ENG) 08/10/2023 7:45 AM PROCESS ENG Narrative Transcriptions Ariel Ledesma MD - 08/10/2023 8:47 AM CST Patient Name: Rocío Rubio Procedure Date: 08/10/2023 Gender: Female Date of : 1960 Admit Type: Outpatient Procedure: Colonoscopy Proceduralist: Ariel Ledesma MD , Ellen Nieves (Nurse),Joyce Colunga RN (Nurse) Indications/Pre-Op Diagnosis: High risk colon cancer surveillance:Personal history of adenoma less than 10 mm in size, Last colonoscopy: March 2018 Medications: Fentanyl 100 micrograms IV, Midazolam 2 mgIV Procedure Description: The patient had risks, benefits and alternatives explained to andgave informed consent. The patient had a stable cardiopulmonary status and judged an adequate candidate for conscious sedation. The endoscope [id number] was passed through the anus andadvanced to the cecum, identified by appendiceal orifice and ileocecal valve.The colonoscopy was performed without difficulty. The patient toleratedthe procedure well. The quality of the bowel preparation was good. The ileocecal valve, appendiceal orifice, and rectum were photographed. Complications: No immediate complications. Estimated Blood Loss & Specimen: Estimated blood loss: none. Specimen collected - Yes and sent to Laboratory Findings: The perianal and digital rectal examinations were normal. A 4 mm polyp was found in the ascending colon. The polyp was sessile. The polyp was removed with a cold snare. Resection and retrieval were complete. Two sessile polyps were found in the rectum. The polyps were 1 to 2mm in size. These polyps were removed with a cold snare. Resection was complete, but the polyp tissue was not retrieved. Impressions/Post-Op Diagnosis: - One 4 mm polyp in the ascending colon, removed with a cold snare. Resected and retrieved. - Two 1 to 2 mm polyps in the rectum, removed with a cold snare. Complete resection. Polyp tissue not retrieved. Recommendation: - Patient has a contact number available for emergencies. The signsand symptoms of potential delayed complications were discussed with the patient. Return to normal activities tomorrow. Written discharge instructions were provided to the patient. - Resume previous diet. - Continue present medications. - Await pathology results. - Repeat colonoscopy is recommended. The colonoscopy date will be determined after pathology results from today's exam become available for review. Moderate Sedation: A time out was performed before the procedure. Moderate (conscious) sedation was administered by the endoscopy nurse and supervised bythe endoscopist. The following parameters were monitored: oxygensaturation, heart rate, blood pressure, EKG, CO2, respiratory rate, adequacy of pulmonary ventilation and reponse to care. Please refer to the patient's medical record flowsheets and nursing notes for moderate sedation details. Total physician intraservice time was 18 minutes. Ariel Ledesma MD 08/10/2023 8:47:38 AM This report has been signed electronically. Note Initiated On: 08/10/2023 7:45 AM Procedure Code(s): --- Professional --- 48995, Colonoscopy, flexible; with removalof tumor(s), polyp(s), or other lesion(s) bysnare technique Diagnosis Code(s): --- Professional --- Z86.010, Personal history of colonicpolyps D12.2, Benign neoplasm of ascending colon D12.8, Benign neoplasm of rectum CPT copyright 2021 [employer]. All rights reserved. The codes documented in this report are preliminary and upon mines safety engineer reviewmay be revised to meet current compliance requirements. Scope In: 8:15:42 AM Scope Withdrawal Time 0 hours 11 minutes 8 seconds Scope Out: 8:32:06 AM us Ariel Ledesma MD PROCEDURE ORD Final Res ult from Last 3 Months or Most Recently Relevant to Health Maintenance Additional Health Concerns Infection Onset Date Last Indicated Rule-Out C.diff 06/02/2025 06/02/2025 Insurance [facility] Advance Directives * Full Code (Latest Code Status on File) Date Activated Date Inactivated Comments 08/24/2016 6:04 AM 08/25/2016 12:57 PM * Full Code Date Activated Date Inactivated Comments 08/05/2009 2:54 PM 08/07/2009 10:54 AM * Full Code Date Activated Date Inactivated Comments 08/05/2009 6:41 AM 08/05/2009 2:54 PM Care Teams Decision Analyst Relationship Specialty Start Date End Date Rosie Chilel MD [address] [place] [address] PCP - General Family Practice 03/22/17 Melanie Rojo, RN [address] [place] [id number] Press Setup Operator 03/26/14 [place] [address] [place] [address] Rheumatology 04/28/25
[2025-06-02 19:26] VITALS: BP 115/70; PULSE 79; RESP 16; TEMP 36.6; O2SAT 99; BMI 32.8
--- NOTE | 2025-06-02 20:12 | ED.NAVMDI ---
HPI - Nausea/Vomiting/Diarrhea General Chief complaint: Nausea/Vomiting Stated complaint: dehydrated Time Seen by Provider: 06/02/25 20:11 Source: patient Mode of arrival: ambulatory Limitations: no limitations History of Present Illness HPI Narrative: 64-year-old female who comes in today with nausea vomiting and diarrhea. Patient was seen in the emergency department last week for the same symptoms, at that time was having more nausea and vomiting, little bit less diarrhea. Last vomiting was 2 days ago, continues to have nausea but still having diarrhea. She says she will go couple of times of our during the day but is slowing down overnight. No blood in the stools, no abdominal pain, no fevers or chills. She reports she had stool studies done with her primary care provider today Related Data Home Medications ?Medication ?Instructions ?Recorded ?Confirmed atorvastatin 40 mg tablet 40 mg PO DAILY 05/11/22 05/27/25 cholecalciferol (vitamin D3) 10 10 mcg PO DAILY 05/11/22 05/27/25 mcg (400 unit) capsule hydrochlorothiazide 25 mg tablet 25 mg PO DAILY 05/11/22 05/27/25 insulin aspart U-100 100 unit/mL 30 unit subcut TID 05/11/22 05/27/25 (3 mL) subcutaneous pen (Novolog FlexPen U-100 Insulin aspart) insulin degludec 200 unit/mL (3 100 unit subcut QHS 05/11/22 05/27/25 mL) subcutaneous pen (Tresiba FlexTouch U-200 insulin) liraglutide 0.6 mg/0.1 mL (18 mg/3 1.8 mg subcut QHS 05/11/22 05/27/25 mL) subcutaneous pen injector (Victoza 3-Caden) lisinopril 40 mg tablet 40 mg PO DAILY 05/11/22 05/27/25 metformin 500 mg tablet,extended 1,000 mg PO BID 05/11/22 05/27/25 release 24 hr metoprolol tartrate 50 mg tablet 50 mg PO Q12H 05/11/22 05/27/25 pen needle, diabetic 32 gauge x #50 ea 05/11/22 10/30/23 (BD Ultra-Fine Arielle Pen Needle) vitamin B complex (B 1 tab PO QDAY 05/11/22 05/27/25 Complex-Vitamin B12 tablet) empagliflozin 10 mg tablet 10 mg PO DAILY 09/19/22 05/27/25 (Jardiance) gabapentin 300 mg capsule 300 mg PO DAILY 02/08/23 05/27/25 aspirin 81 mg tablet,delayed 81 mg PO DAILY 09/18/23 05/27/25 release ascorbate calcium (vitamin C) 500 500 mg PO QDAY 09/26/23 05/27/25 mg tablet calcium 600 mg (as 1 cap PO QDAY 10/03/23 05/27/25 carbonate)-vitamin D3 10 mcg (400 unit) capsule amlodipine 10 mg tablet 10 mg PO DAILY 05/27/25 05/27/25 Previous Rx's ?Medication ?Instructions ?Recorded ibuprofen 600 mg tablet 600 mg PO Q6H PRN Pain #30 tabs 09/20/23 Allergies Allergy/AdvReac Type Severity Reaction Status Date / Time No Known Drug Allergies Allergy Verified 05/27/25 23:19 [facility] Medical History Status post radiation therapy ?Z92.3 - Personal history of irradiation (ICD-10) Restless leg syndrome ?G25.81 - Restless legs syndrome (ICD-10) Microalbuminuria ?R80.9 - Proteinuria, unspecified (ICD-10) Adenomatous colon polyp ?D12.6 - Benign neoplasm of colon, unspecified (ICD-10) Psoriasis ?L40.9 - Psoriasis, unspecified (ICD-10) Allergic rhinitis ?J30.9 - Allergic rhinitis, unspecified (ICD-10) Hyperlipidemia ?E78.5 - Hyperlipidemia, unspecified (ICD-10) Diabetic polyneuropathy ?E11.42 - Type 2 diabetes mellitus with diabetic polyneuropathy (ICD-10) Hepatitis B immune ?Z78.9 - Other specified health status (ICD-10) Uterine fibroid ?D25.9 - Leiomyoma of uterus, unspecified (ICD-10) Obstructive sleep apnea ?G47.33 - Obstructive sleep apnea (adult) (pediatric) (ICD-10) Postmenopausal bleeding ?N95.0 - Postmenopausal bleeding (ICD-10) 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) ?C50.912 - Malignant neoplasm of unspecified site of left female breast (ICD-10) Stage 3a chronic kidney disease (CKD) ?N18.31 - Chronic kidney disease, stage 3a (ICD-10) Lobular carcinoma of breast ?C50.919 - Malignant neoplasm of unspecified site of unspecified female breast (ICD-10) Endometrial hyperplasia without atypia, complex (01/17/22) ?N85.01 - Benign endometrial hyperplasia (ICD-10) Diabetes type 2, controlled ?E11.9 - Type 2 diabetes mellitus without complications (ICD-10) SVT (supraventricular tachycardia) ?I47.1 - Supraventricular tachycardia (ICD-10) HTN (hypertension) ?I10 - Essential (primary) hypertension (ICD-10) Sleep apnea ?G47.30 - Sleep apnea, unspecified (ICD-10) Surgical History Status post total abdominal hysterectomy and bilateral salpingo-oophorectomy (09/19/23) ?Z90.710 - Acquired absence of both cervix and uterus (ICD-10) ?Z90.722 - Acquired absence of ovaries, bilateral (ICD-10) ?Z90.79 - Acquired absence of other genital organ(s) (ICD-10) Status post hysteroscopy (06/19/23) ?Z98.890 - Other specified postprocedural states (ICD-10) Status post hysteroscopy (01/17/22) ?Z98.890 - Other specified postprocedural states (ICD-10) H/O cardiac radiofrequency ablation ?Z98.890 - Other specified postprocedural states (ICD-10) History of uterine fibroid ?Z86.018 - Personal history of other benign neoplasm (ICD-10) S/P lumpectomy, left breast (~08/28/17) ?Z98.890 - Other specified postprocedural states (ICD-10) Family History Father Heart disease Diabetes Liver disease Kidney disease Paternal Grandmother Breast cancer Maternal Grandmother Uterine cancer Social History Narrative: daughter lives with her but smokes outside What is your current living situation?: I presently have a place to live Problems where you live: no known problems In the past 12 months, utilities in danger of being shut off: no In past 12 months, lack of transportation kept you from medical appts, meetings, work, or getting things needed for daily living: no In the past 12 mos, have been you worried that your food would run out before you had money to buy more?: never true In the past 12 mos, the food you bought just didn't last and you didn't have money to buy more?: never true Highest level of school completed/degree received: Bachelor's degree Smoking Status: Never smoker Do you use any of these nicotine containing products: None Second hand tobacco smoke exposure: No How often do you have a drink containing alcohol: never How often do you have six or more drinks on one occasion: Never AUDIT-C Alcohol total score: 0 Non-prescribed substance use: denies use Caffeine: Yes Are you now , , , , never or living with a partner: Social isolation score (0-1 are the most socially isolated patients): 0 How often does anyone, including family, friends and others, physically hurt you: never How often does anyone, including family, friends and others, insult or talk down to you: never How often does anyone, including family, friends and others, threaten you with harm: never How often does anyone, including family, friends and others, scream or curse at you: never Do you think of yourself as: straight/heterosexual Gender Identity: female Are you currently sexually active: No Are you using contraception or practicing any form of control: No service: No Exam Narrative: Exam Narrative: General: Well-developed and well-nourished, no acute distress Head: Atraumatic and normocephalic Eyes: Pupils are equal reactive, extraocular motions intact, conjunctiva clear ENT: External nose and ears are normal, posterior pharynx without erythema or exudate Neck: No midline cervical tenderness, full spontaneous range of motion the neck, trachea midline, no adenopathy Heart: Regular rate and rhythm no murmurs or thrills Lungs: Clear to auscultation bilaterally without wheezes or crackles Abdomen: Soft, nontender, nondistended with hyperactive Musculoskeletal: No tenderness, deformity, or edema Neurologic: Awake, alert, and oriented x3, no gross focal neurologic deficits, cranial nerves intact as tested Psych: Mood and affect are appropriate Skin: No rashes Const: Vital Signs, click to edit/add: Vital Signs - 24 hr 06/02/25 19:26 06/02/25 21:48 06/02/25 21:50 Temperature 98 F 98 F 98 F Pulse Rate [Pulse Oximeter] 79 81 81 Respiratory Rate 16 16 16 Blood Pressure [Ri t Upper Arm] 115/70 121/74 121/74 Pulse Oximetry 99 99 Oxygen Delivery Me thod Room Air Room Air Course Course ED Course: Reviewed prior emergency department visit from May patient was seen for the same thing, this is been intermittent problem. Patient was recently started on Trulicity. Patient had stool studies ordered this morning, C diff is in process but the stool pathogen panel was canceled due to insufficient volume of stool. Patient did have urinalysis done yesterday that showed 11-25 white blood cells, cultures in process, basic panel yesterday normal. Patient seen and examined, presents today with nausea vomiting and diarrhea. This started about 5 days ago and currently vomiting is improved but still having diarrhea. No lightheadedness or chest pain, no shortness of breath. On exam, normal blood pressure, no tachycardia. Bowel sounds are hyperactive but no abdominal tenderness. Labs ordered. Reevaluation(s) Time of Reevaluation #1: 21:11 Reevaluation #1: Labs independently interpreted by me with normal venous blood gas, no evidence for acidosis. Potassium and sodium are both slightly low, creatinine 1.6 which is slightly above baseline for the patient, urinalysis with moderate squamous cells, 0 white cells, 0 red cells, negative ketones. Patient is stable for discharge after fluids. Continue Imodium, has Zofran at home, follow-up with primary care as needed. Time of Reevaluation #2: 21:50 Reevaluation #2: Updated patient with findings and plan, stable for discharge Vital Signs Vital signs: Initial Vital Signs Temperature 98 F 06/02/25 19:26 Temperature Source Temporal Artery Scan 06/02/25 19: Pulse Rate 79 06/02/25 19:26 Respiratory Rate 16 06/02/25 19:26 Blood Pressure 115/70 06/02/25 19:26 Blood Pressure Mean 85 06/02/25 19:26 Blood Pressure Position Sitting 06/02/25 19:26 Pulse Oximetry 99 06/02/25 19:26 Oxygen Delivery Method Room Air 06/02/25 19:26 Vital Signs Temperature 98 F 06/02/25 19:26 Pulse Rate 79 06/02/25 19:26 Respiratory Rate 16 06/02/25 19:26 Blood Pressure 115/70 06/02/25 19:26 Pulse Oximetry 99 06/02/25 19:26 Oxygen Delivery Method Room Air 06/02/25 19:26 Temperature 98 F 06/02/25 21:50 Pulse Rate 81 06/02/25 21:50 Respiratory Rate 16 06/02/25 21:50 Blood Pressure 121/74 06/02/25 21:50 Pulse Oximetry 99 06/02/25 21:48 Oxygen Delivery Method Room Air 06/02/25 21:48 Medications Administered Medications: Generic Name Dose Route Start Last Admin Trade Name Freq PRN Reason Stop Dose Admin Sodium Chloride 1,000 mls @ 1,000 mls/hr 06/02/25 21:15 06/02/25 21:50 0.9 % Sodium Chloride 1000 Ml IV 06/02/25 22:14 Infused .Q1H [facility] Infusion MDM - Nausea/Vomiting/Diarrhea Lab Data Labs: Lab Results 06/02/25 06/02/25 Range/Units 20:30 20:38 VBG pH 7.304 L (7.32-7.43) VBG pCO2 42 (40-50) mmHG VBG pO2 32.2 (25-47) mmHG VBG HCO3 21 (21-28) mmol/L Sodium 132 L (135-149) mmol/L Potassium 3.5 L (3.6-5.1) mmol/L Chloride 103 (96-114) mmol/L Carbon Dioxide 19 L (20-32) mmol/L Anion Gap 10 (7-15) mEq/L BUN 57 H (7-30) mg/dL Creatinine 1.6 H (0.5-1.5) mg/dL Estimated Creat Clear 33.25 Estimated GFR 36 ml/min Glucose 139 H (60-115) mg/dL Calcium 8.5 (8.4-10.6) mg/dL Magnesium 1.6 (1.5-2.6) mg/dL Total Bilirubin 0.5 (0.1-1.5) mg/dL Direct Bilirubin 0.2 (0.0-0.5) mg/dL AST 17 (12-35) U/L ALT 15 (4-35) U/L Alkaline Phosphatase 78 (40-150) U/L Total Protein 7.2 (6.0-8.3) g/dL Albumin 3.7 (3.3-5.0) g/dL Lipase 97 (23-300) U/L Urine Color Yellow (Yellow) Urine Appearance Clear (Clear) Urine pH 5.5 (5.0-8.5) Ur Specific [place] 1.010 (1.000-1.030) Urine Protein Trace A (Negative) Urine Glucose (UA) Negative (Negative) Urine Ketones Negative (Negative) Urine Blood Negative (Negative) Urine Nitrite Negative (Negative) Urine Bilirubin Negative (Negative) Urine Urobilinogen 0.2 (0.2-1.0) Ur Leukocyte Esterase Trace A (Negative) Urine RBC 0-2 (0-2) Urine WBC 0-2 (0-5) Ur Squamous Epith Cells Moderate A (None-Few) Urine Bacteria Few A (None) Fine Granular Casts Few A (None) Discharge Plan Discharge Clinical Impression: Diarrhea Patient Disposition: Home, Self-Care Condition: Stable Instructions: Acute Diarrhea (ED) Additional Instructions: Continue Imodium for diarrhea. Take 2 pills initially followed by 1 tablet after each loose stool up to 8 tablets daily. Activity Level: Activity as Tolerated Discharge Diet: Regular Prescriptions: No Action Jardiance 10 mg tablet 10 mg PO DAILY gabapentin 300 mg capsule 300 mg PO DAILY lisinopril 40 mg tablet 40 mg PO DAILY (DME) pen needle, diabetic [BD Ultra-Fine Arielle Pen Needle] 32 gauge x 5/32 needle See Rx Instructions .ROUTE .MEDSUPPLY Qty: 50 Rx Instructions: As directed insulin aspart U-100 [Novolog FlexPen U-100 Insulin] 100 unit/mL (3 mL) insulin pen 30 unit subcut TID Patient Comments: once/meal, 30u breakfast, 30u lunch, 38u dinner (+ sliding scale with each meal) metformin 500 mg tablet extended release 24 hr 1,000 mg PO BID insulin degludec [Tresiba FlexTouch U-200] 200 unit/mL (3 mL) insulin pen 100 unit subcut QHS hydrochlorothiazide 25 mg tablet 25 mg PO DAILY atorvastatin 40 mg tablet 40 mg PO DAILY metoprolol tartrate 50 mg tablet 50 mg PO Q12H liraglutide [Victoza 3-Caden] 0.6 mg/0.1 mL (18 mg/3 mL) pen injector 1.8 mg subcut QHS vitamin B complex [B Complex-Vitamin B12] Tablet 1 tab PO QDAY cholecalciferol (vitamin D3) 10 mcg (400 unit) capsule 10 mcg PO DAILY calcium carbonate-vitamin D3 600 mg-10 mcg (400 unit) capsule 1 cap PO QDAY ascorbate calcium (vitamin C) 500 mg tablet 500 mg PO QDAY amlodipine 10 mg tablet 10 mg PO DAILY aspirin 81 mg tablet,delayed release (DR/EC) 81 mg PO DAILY ibuprofen 600 mg Tablet 600 mg PO Q6H PRN (Reason: Pain) Qty: 30 0RF Follow Up/Referrals: Ibis Chilel MD [Primary Care Provider, Family Practice] Stand Alone Forms: [facility] Inst[facility] Procedures ABG Interpretation ABG Results: 06/02/25 20:30 VBG pH 7.304 L VBG pCO2 42 VBG pO2 32.2 VBG HCO3 21
[2025-06-02 20:38] LABS: HCO3 VBG 21 mmol/L (21-28); PCO2 VBG 42 mmHG (40-50); PO2 VBG 32.2 mmHG (25-47); pH VBG 7.304 (7.32-7.43)
[2025-06-02 20:43] LABS: Appearance Urine Clear (Clear)
[2025-06-02 20:52] LABS: Albumin* 3.7 g/dL (3.3-5.0)
[2025-06-02 20:53] LABS: Chloride* 103 mmol/L (96-114); Potassium* 3.5 mmol/L (3.6-5.1); Sodium* 132 mmol/L (135-149)
[2025-06-02 20:55] LABS: Alanine Aminotransferase* 15 U/L (4-35); Anion Gap 10 mEq/L (7-15); Aspartate Amino Transferase* 17 U/L (12-35); Blood Urea Nitrogen* 57 mg/dL (7-30); Carbon Dioxide* 19 mmol/L (20-32); Creatinine* 1.6 mg/dL (0.5-1.5); Est. Creatinine Clearance* 33.25; Estimated Glomerular Filt Rate 36 ml/min
[2025-06-02 20:56] LABS: Alkaline Phosphatase* 78 U/L (40-150); Bilirubin Direct* 0.2 mg/dL (0.0-0.5); Bilirubin Total* 0.5 mg/dL (0.1-1.5); Calcium* 8.5 mg/dL (8.4-10.6); Glucose* 139 mg/dL (60-115); Total Protein* 7.2 g/dL (6.0-8.3)
--- OUTSIDE RECORDS SUMMARY | 2025-06-02 20:59 | XMS_ITS | Clinical Summary ---
Author Organization [facility] Address [address] , [address] [place] [address] Phone Care Team Providers Care Casino Floor Walker Name Role Phone [facility] Unavailable Unava ilable Conditions or Problems Problem Name Problem Code Onset Date Status Entry Date Provider Comment Standard Description Annotate Essential tremor 201710108 (SNOMED CT) 01/30 Active 02/02 Francheska Riki Margarita DO Essential tremor Gait imbalance [id number] (SNOMED CT) 01/30 Active 01/30 Francheska E Margarita DO Abnormal gait Diabetic polyneuropathy 17170733 (SNOMED CT) 01/30 Active 01/30 Francheska E Margarita DO Polyneuropathy due to diabetes mellitus Peripheral neuropathy 496149098 (SNOMED CT) 01/30 Active 01/30 Francheska E Margarita DO Peripheral nerve disease Medications Medication Instructions Start Date Stop Date Generic Name NDC Provider tirzepatide (MOUNJARO) 2.5 mg/0.5 mL pen Inject 2.5 mg subcutaneous once weekly. 10/28 MOUNJARO QIEUSER QIEUSER sensor (Dexcom G7 Sensor) for continuous blood glucose monit To be used to read blood sugars, change sensor every 10 days. This is for the glucose SENSOR, also order the slab stripper. 09/29 Dexcom G7 Sensor QIEUSER QIEUSER ONDANSETRON [address] 1 Tablet (4 mg) on the tongue every 8 hours if needed for Nausea/Vomiti ng. 09/03 ondansetron [id number] QIEUSER QIEUSER NOVOLOG FLEXPEN RELION 100 UNIT/ML SOPN INJECT 28 UNITS UNDER THE SKIN AT BREAKFAST 30 UNITS AT LUNCH AND 46 UNITS AT SUPPER PLUS CORRECTION SCALE UP TO 120 UNITS PER DAY IF HAVE DESSERT GIVE ADDITIONAL 20 UNITS 01/09 insulin aspart u-100 [id number] QIEUSER QIEUSER METOPROLOL TARTRATE 50 MG TABS Take 1 Tablet (50 mg) by mouth two times daily. 10/28 metoprolol tartrate [id number] QIEUSER QIEUSER METFORMIN HCL ER 500 MG [id number] Take 2 Tablets (1,000 mg) by mouth two times daily with meals. 10/28 metformin (glucophage xr) [id number] QIEUSER QIEUSER LISINOPRIL 40 MG TABS Take 1 Tablet (40 mg) by mouth once daily. 10/28 lisinopril [id number] QIEUSER QIEUSER lancets (ACCU-CHEK SOFTCLIX LANCETS) Dispense item covered by pt ins. E11.65 NIDDM type II - Test 4 times/day. 10/06 ACCU-CHEK SOFTCLIX LANCETS QIEUSER QIEUSER insulin degludec (U-200) 200 unit/mL (3 mL) pen INJECT 100 UNITS UNDER THE SKIN ONCE DAILY WITH EVENING MEAL 11/05 U-200 QIEUSER QIEUSER HYDROCHLOROTHIAZIDE 25 MG TABS Take 1 Tablet (25 mg) by mouth once daily. 10/28 hydrochlorothiazide [id number] QIEUSER QIEUSER GABAPENTIN 300 MG CAPS Take 1 Capsule (300 mg) by mouth at bedtime. Take 1 hour before bed 05/11 gabapentin 52706803252 QIEUSER QIEUSER FLUTICASONE PROPIONATE 50 MCG/ACT SUSP Inhale 1 [place] to both nostrils two times daily. 09/24 fluticasone propionate 26041723700 QIEUSER QIEUSER ESTRADIOL 0.1 MG/GM CREA Insert 1 g into the vagina once weekly. 09/04 estradiol [id number] QIEUSER QIEUSER JARDIANCE 25 MG TABS TAKE 1 TABLET (25 MG) BY MOUTH ONCE DAILY 01/17 empagliflozin 08052307399 QIEUSER QIEUSER DOCUSATE SODIUM 100 MG CAPS TAKE ONE CAPSULE (100 MG) BY MOUTH TWICE DAILY NEEDED FOR CONSTIPATION 10/17 docusate sodium 20048476162 QIEUSER QIEUSER Diabetic Shoe As directed. 11/15 Diabetic Shoe QIEUSER QIEUSER Diabetic Shoe As directed. 10/28 Diabetic Shoe QIEUSER QIEUSER cyanocobalamin (VITAMIN B-12) 1,000 mcg tablet Take 1 tablet by mouth once daily. 09/15 VITAMIN B-12 QIEUSER QIEUSER CPAP Traveling CPAP machine for home use at pressure 8 cmw, full face mask x1/3month with a full face cushion x1/mo 02/05 CPAP QIEUSER QIEUSER CPAP RESMED CPAP (E0601) machine for home use at pressure: 8cmw, Choice of mask (A7030 or A7034) w/full face cushion (A7031) x1/mo, nasal cushion (A7032) x2/mo, or nasal pillows (A7033) x 2/mo; Length of Need: 99 months; Frequency of use: Daily 05/11 CPAP QIEUSER QIEUSER cholecalciferol (VITAMIN D) 1,000 unit capsule Take 1 capsule by mouth once daily. 09/15 VITAMIN D QIEUSER QIEUSER FT CALCIUM 600 MG TABS 2 in the morning and 1 at night 09/02 calcium carbonate [id number] QIEUSER QIEUSER CALCIPOTRIENE 0.005 % CREA Apply topically to affected area(s) 2 times daily. 10/14 calcipotriene [id number] QIEUSER QIEUSER Blood-Glucose Transmitter tanmay USE DIRECTED Blood-Glucose Transmitter tanmay QIEUSER QIEUSER blood-glucose meter Dispense meter, test strips, lancets covered by pt ins. E11.65 NIDDM type II, uncontrolled - Test 5 times/day. Reason: High A1C 09/07 blood-glucose meter QIEUSER QIEUSER Blood-Glucose Meter,Continuous misc As directed. 04/25 Blood-Glucose Meter,Continuous misc QIEUSER QIEUSER blood sugar diagnostic (Accu-Chek Nancy Plus test strp) stri USE TO TEST BLOOD GLUCOSE 5 TIMES DAILY 09/19 Accu-Chek Nancy Plus test strp QIEUSER QIEUSER BETAMETHASONE DIPROPIONATE AUG 0.05 % OINT Apply topically to affected area(s) once daily. 12/13 betamethasone, augmented [id number] QIEUSER QIEUSER ATORVASTATIN CALCIUM 40 MG TABS Take 1 Tablet (40 mg) by mouth once daily. 10/28 atorvastatin 17192255488 QIEUSER QIEUSER ASPIRIN LOW DOSE 81 MG TBEC take 1 tablet (81 mg) by oral route once daily 03/01 aspirin [id number] QIEUSER QIEUSER AMLODIPINE BESYLATE 5 MG TABS Take 1 Tablet (5 mg) by mouth once daily. 10/28 amlodipine [id number] QIEUSER QIEUSER Medications Administered No information available. Allergies, Adverse Reactions, Alerts No information available. Results Date Name Value Unit Range Flag Description Chart Maintenance: Patient I ntake ABSOLUTE MON 575 10*3/uL Monocyte s [#/volume] in Blood ABS EOS 259 {Cells}/u L Eosinophils [#/volume] in Blood CA 9.3 mg/dL Calcium [Mass /volume] in Serum or Plasma ABSOLUTE BAS 41 10*3/uL Basophil s [#/volume] in Blood ABS LYMPHOCY 1531 10*3/uL Absolute Lymphocytes ABS NEUTROPH 5694 10*3/uL Neutroph ils [#/volume] in Blood LYMPHS % 18.9 % Lymphocytes/ 100 leukocytes in Blood by Automated count % BASO AUTO 0.5 % basophils as percent of blood leukocytes, automated count % EOS AUTO 3.2 % Eosinophil s/100 leukocytes in Blood by Automated count CO2 TOTAL 26 mmol/L carbon diox carissa, serum, total GLUCOSE SER 160 mg/dL Glucose [ Mass/volume] in Serum or Plasma BILI INDIREC 0.3 mg/dL bilirubi n, serum, indirect BUN/CREAT 32 Urea nitrogen/Creatinine [Mass Ratio] in Serum or Plasma IRON SATUR % 21 % Iron sat uration [Mass Fraction] in Serum or Plasma MONOCYTE % 7.1 % Monocytes/ 100 leukocytes in Blood by Automated count TIBC 305 ug/dL Iron binding capacity [Mass/volume] in Serum or Plasma MCH 27.3 pg MCH [Entitic mass] by Automated count RDW 13.9 % Erythrocyte distribution width [Ratio] by Automated count MCHC 32.1 % MCHC [Mass/vo lume] by Automated count PMN % 70.3 % Neutrophils/1 00 leukocytes in Blood by Automated count MCV 85.1 fL MCV [Entitic volume] by Automated count SODIUM 141 mmol/L Sodium [Moles /volume] in Serum or Plasma IRON 64 ug/dL Iron [Mass/vo lume] in Serum or Plasma A/G RATIO 1.1 Albumin/Jaymie bulin [Mass Ratio] in Serum or Plasma PAP SMEAR NIL General cat egories [Interpretation] of Cervical or vaginal smear or scraping by Cyto stain WBC 8.1 10*3/mm3 Leukocytes [ #/volume] in Blood by Automated count RBC 4.17 10*6/mm3 Erythrocytes [#/volume] in Blood by Automated count PLATELETS 341 10*3/mm3 Platelets [#/volume] in Blood by Automated count HGB 11.4 g/dL Hemoglobin [Mass/volume] in Blood HCT 35.5 % Hematocrit [V olume Fraction] of Blood by Automated count BILI TOTAL 0.4 mg/dL Bilirubin. total [Mass/volume] in Serum or Plasma SGPT (ALT) 17 U/L Alanine aminotransferase [Enzymatic activity/volume] in Serum or Plasma SGOT (AST) 16 U/L Aspartate aminotransferase [Enzymatic activity/volume] in Serum or Plasma POTASSIUM 4.6 mmol/L Potassium [Moles/volume] in Serum or Plasma HGBA1C 7.5 % Hemoglobin A1c/Hemoglobin, total in Blood - % FERRITIN 121 ng/mL Ferritin [Mass/volume] in Serum or Plasma BILI DIRECT 0.1 mg/dL Bilirubin .direct [Mass/volume] in Serum or Plasma CREATININE 1.16 mg/dL Creatinine [Mass/volume] in Serum or Plasma CHLORIDE 104 mmol/L Chloride [Moles/volume] in Serum or Plasma BUN 37 mg/dL Urea nitrogen [Mass/volume] in Serum or Plasma B-12 1530 pg/mL Cobalamin (Vi tamin B12) [Mass/volume] in Serum or Plasma ALK PHOS 93 U/L Alkaline iris sphatase [Enzymatic activity/volume] in Blood ALBUMIN 3.9 g/dL Albumin [Mass /volume] in Serum or Plasma Replaced Document: (P) PROTE IN, TOTAL AND PROTEIN ELECTROPHORESIS, PROTEIN ELEC ... TSH * u[iU]/mL Thyrotropin [Units/volume] in Serum or Plasma CRP * mg/dL C reactive pr otein [Mass/volume] in Serum or Plasma ANASCR IFA * DONELL SCREEN , IFA LYME DIS AB * Borrelia burgdorferi.VlsE1+pep C10 Ab [Units/volume] in Serum by Immunoassay ESR 38 mm/h < OR = 30 H Erythrocyte sedimentation rate by Westergren method INTRP * Interpretatio n [id number] * g/dL Abnormal Protein Band 3, g/dL [id number] * g/dL Abnormal Protein Band 2, g/dL ABNPROTBND * g/dL Abnormal P rotein Band 1, g/dL GAMMA GLOB * mg/dL Gamma glob ulin [Mass/volume] in Serum or Plasma by Electrophoresis [id number] * g/dL beta 2 g lobulin [id number] * g/dL beta 1 g lobulin ALPHA 2 GLOB * Alpha 2 globulin [Mass/volume] in Serum or Plasma by Electrophoresis ALPH-1 SR PE * g/dL alpha-1 globulin, serum, by protein electrophoresis ALBUM SER PE * g/dL albumin, serum by protein electrophoresis PROTEIN, TOT * g/dL Protein [Mass/volume] in Serum or Plasma DONELL PATTERN Mitotic, Spindle Fibers A DONELL (antinuclear antibody) pattern, serum DONELL TITER 2 1:1280 H DONELL TITER 2 Plan of Care Type Date Detail Appointment 07:40 AM Gerald Banks MD, [facility] [address], [address], [place], [address], Appointment 08:20 AM Gerald Banks MD, [facility] [address], [address], [place], [address], Appointment 09:00 AM Francheska Riki white DO, [facility] [address], [address], [place], [address], Referral Other Referral Pending order Follow up Pending order Follow up Pending order DONELL Pending order C Reactive Prote in (CRP) Qn Pending order ESR (Sedimentati on Rate) Pending order Immunofixation S kylah w/Electrophoresis Pending order Lyme Total Ab w/ Reflex (reflex to Western Blot) Pending order TSH Procedures No information available. Vital Signs No information available. Immunizations No information available. Advance Directives No information available.
[2025-06-02 21:48] VITALS: BP 121/74; PULSE 81; RESP 16; TEMP 36.6; O2SAT 99
[2025-06-02 21:50] VITALS: BP 121/74; PULSE 81; RESP 16; TEMP 36.6
== END 2025-06-02 21:53 | disposition home or self-care (01) ==
PROVIDERS: Emergency Provider Family Medicine; PCP Family Medicine
DX: R19.7 Diarrhea, unspecified (principal)
CPT/HCPCS: 36415; 80048; 80076; 81001; 82803; 83690; 83735; 87086; 96360; 99283; 99284; J7030